=== PATIENT | female | born 1940 | race Caucasian/White ===

== ENCOUNTER 2020-01-10 10:33 | Outpatient (CLI) | payer MEDICARE, SELFPAY ==
--- NOTE | 2020-01-10 10:39 | XR_ITS ---
WS: [id number] Examination: DEXA evaluation. HISTORY: Evaluated in bone density for premature menopause. FINDINGS: The lumbar spine showed a bone mineral density of 0.947, a T score of -1.9 a Z score of -0.8. The hip joints show in bone mineral density of 0.8878 T score -1.0 a Z score of 0.6. Technique 10 year probability of fractures Major osteoporotic 29.8% hips 19.5%. Bone density findings consistent with osteopenia.
== END 2020-01-10 10:34 | disposition home or self-care (01) ==
LOC: RADWPI 10:38
PROVIDERS: Family Provider Family Medicine; PCP Internal Medicine; Visit Provider Internal Medicine
DX: Z78.0 Asymptomatic menopausal state (principal)
CPT/HCPCS: 77080

== ENCOUNTER → 2020-04-08 09:15 | Outpatient (BNVA) | payer MEDICARE, SELFPAY | PROVIDERS: Family Provider Family Medicine; PCP Nurse Practitioner Family; Referring Provider Nurse Practitioner Family; Visit Provider Anesthesiology Pain Medicine | DX: G89.29 Other chronic pain (principal); M51.36 Other intervertebral disc degeneration, lumbar region; M47.816 Spondylosis without myelopathy or radiculopathy, lumbar region; M54.9 Dorsalgia, unspecified; M25.519 Pain in unspecified shoulder; Z90.710 Acquired absence of both cervix and uterus; Z98.890 Other specified postprocedural states | CPT/HCPCS: 99204 ==

== ENCOUNTER → 2020-04-12 14:36 | Outpatient (BNVA) | payer MEDICARE, SELFPAY | PROVIDERS: Family Provider Family Medicine; PCP Nurse Practitioner Family; Visit Provider Anesthesiology Pain Medicine | DX: M47.816 Spondylosis without myelopathy or radiculopathy, lumbar region (principal); M54.9 Dorsalgia, unspecified | CPT/HCPCS: 64493; 64494; 64495; J2001; J3490 ==

== ENCOUNTER → 2020-04-30 10:42 | Outpatient (BNVA) | payer MEDICARE, SELFPAY | PROVIDERS: Family Provider Family Medicine; PCP Nurse Practitioner Family; Visit Provider Anesthesiology Pain Medicine | DX: G89.29 Other chronic pain (principal); M54.9 Dorsalgia, unspecified; M47.816 Spondylosis without myelopathy or radiculopathy, lumbar region; M51.36 Other intervertebral disc degeneration, lumbar region; M25.519 Pain in unspecified shoulder; Z98.890 Other specified postprocedural states; Z90.710 Acquired absence of both cervix and uterus | CPT/HCPCS: 99213 ==

== ENCOUNTER → 2020-05-31 12:31 | Outpatient (BNVA) | payer MEDICARE, SELFPAY | PROVIDERS: Family Provider Family Medicine; PCP Nurse Practitioner Family; Visit Provider Anesthesiology Pain Medicine | DX: M47.816 Spondylosis without myelopathy or radiculopathy, lumbar region (principal); M54.9 Dorsalgia, unspecified | CPT/HCPCS: 64493; 64494; 64495; J3490 ==

== ENCOUNTER → 2020-06-14 10:00 | Outpatient (BNVA) | payer MEDICARE, SELFPAY | PROVIDERS: Family Provider Family Medicine; PCP Nurse Practitioner Family; Visit Provider Anesthesiology Pain Medicine | DX: G89.29 Other chronic pain (principal); M79.18 Myalgia, other site; M47.816 Spondylosis without myelopathy or radiculopathy, lumbar region; M51.36 Other intervertebral disc degeneration, lumbar region; M54.9 Dorsalgia, unspecified; M25.519 Pain in unspecified shoulder; Z98.890 Other specified postprocedural states; Z90.710 Acquired absence of both cervix and uterus; Z79.891 Long term (current) use of opiate analgesic | CPT/HCPCS: 20553; 99214; J1030; J3490 ==

== ENCOUNTER → 2020-07-05 12:54 | Outpatient (BNVA) | payer MEDICARE, SELFPAY | PROVIDERS: Family Provider Family Medicine; PCP Nurse Practitioner Family; Visit Provider Anesthesiology Pain Medicine | DX: M47.816 Spondylosis without myelopathy or radiculopathy, lumbar region (principal); M54.9 Dorsalgia, unspecified | CPT/HCPCS: 64635; 64636; J1030 ==

== ENCOUNTER → 2020-07-29 13:14 | Outpatient (BNVA) | payer MEDICARE, SELFPAY | PROVIDERS: Family Provider Family Medicine; PCP Nurse Practitioner Family; Visit Provider Anesthesiology Pain Medicine | DX: M47.816 Spondylosis without myelopathy or radiculopathy, lumbar region (principal); M54.9 Dorsalgia, unspecified; Z79.891 Long term (current) use of opiate analgesic | CPT/HCPCS: 64635; 64636; J1030 ==

== ENCOUNTER → 2020-08-15 10:11 | Outpatient (BNVA) | payer MEDICARE, SELFPAY | PROVIDERS: Family Provider Family Medicine; PCP Nurse Practitioner Family; Visit Provider Anesthesiology Pain Medicine | DX: G89.29 Other chronic pain (principal); M47.816 Spondylosis without myelopathy or radiculopathy, lumbar region; M51.36 Other intervertebral disc degeneration, lumbar region; M54.9 Dorsalgia, unspecified; M25.519 Pain in unspecified shoulder; Z98.890 Other specified postprocedural states | CPT/HCPCS: 99212 ==

== ENCOUNTER → 2020-11-07 09:20 | Outpatient (BNVA) | payer MEDICARE, SELFPAY | PROVIDERS: Family Provider Family Medicine; PCP Nurse Practitioner Family; Visit Provider Anesthesiology Pain Medicine | DX: G89.29 Other chronic pain (principal); M47.816 Spondylosis without myelopathy or radiculopathy, lumbar region; M51.36 Other intervertebral disc degeneration, lumbar region; M54.9 Dorsalgia, unspecified; M25.519 Pain in unspecified shoulder; G47.00 Insomnia, unspecified; Z90.710 Acquired absence of both cervix and uterus; Z98.890 Other specified postprocedural states | CPT/HCPCS: 99214 ==

== ENCOUNTER → 2021-02-28 10:45 | Outpatient (BNVA) | payer MEDICARE, SELFPAY | PROVIDERS: PCP Nurse Practitioner Family; Visit Provider Surgery | DX: Z01.812 Encounter for preprocedural laboratory examination (principal); Z20.822 Contact with and (suspected) exposure to COVID-19 | CPT/HCPCS: 87635 ==

== ENCOUNTER 2021-03-05 06:26 | Day surgery (SDC) | payer MEDICARE, SELFPAY ==
[2021-03-03 13:51] VITALS: BMI 32.8
--- NOTE | 2021-03-05 07:18 | ANES.PREANE2 ---
Pre-Anesthetic Assessment Pre-Anesthetic Assessment: Height/Weight: Height 1.63 m Weight 86.636 kg Preop Diagnosis: Occult blood in stool Proposed Procedure: Operation Date: 03/05/21 08:00 Proposed Procedures p Colonoscopy 24113 K62.5(Not Applicable) - Ashok Torres MD Familial anesthetic complications: None Was Beta Tristin taken within 24 hours: N/A Was Clonidine taken within 24 hours: N/A Last intake: NPO > 8 hrs Social: Social History: No alcohol and No tobacco Exam: Pre-Anes Outpt Exam: alert, oriented x 3, clear to auscultation bilaterally and regular rate & rhythm Airway: Cervical ROM: WNL MP: 2 Dentition: False CV/HEM: CV/HEM: HTN GI: GI: GERD Metabolic: Metabolic: Hyperlipidemia Anesthetic Plan: ASA status: 2 Anesthesia: MAC Risk of > 500 ml blood loss (7ml/kg in children): No PFSH Anesthesia PFSH: Family History Mother Dementia Father Cerebral hemorrhage Grandmother Cancer Brother Stroke Denies family history of Anesthesia complication Bleeding disorder Social History Smoking and tobacco status: former smoker Alcohol intake: never Lives independently: Yes History of recent travel: No Data Anesthesia Cardiac Studies: No Data to Display
[2021-03-05 07:37] VITALS: BP 170/104; PULSE 108; RESP 16; TEMP 36.2; O2SAT 97
[2021-03-05] MEDS: sodium chloride 0.9% 1,000 ML 30 ML IV (07:47)
--- NOTE | 2021-03-05 08:15 | W.PM.OPSFHP ---
Same Day Surgery H&P Indication for Procedure/HPI DATE OF PROCEDURE: March 05, 2021 CHIEF COMPLAINT/INDICATIONFOR SURGICAL PROCEDURE: Blood in stool PREOP DIAGNOSIS: Occult blood in stool PLANNED PROCEDRUE: Operation Date: 03/05/21 08:00 Proposed Procedures p Colonoscopy 53672 K62.5(Not Applicable) - Ashok Torres MD This is a pleasant 80 years old female patient with well-known history of diverticulosis, last colonoscopy was done few years ago. Was found to have occult blood in stool and she was referred by her primary care provider service with concern and potential discussion of colonoscopy. No evidence of history of colon cancer. Interim history 03/05/2021 Patient comes today for colonoscopy. ROS All systems have been reviewed negative except as per the above or per problem list. Medications/Allergies* Home Medications Medication Instructions Recorded Confirmed Type amlodipine 5 mg tablet 5 mg PO DAILY 04/08/20 03/05/21 History cholecalciferol (vitamin D3) 125 125 mcg PO DAILY 04/08/20 03/05/21 History mcg (5,000 unit) capsule cyanocobalamin (vitamin B-12) 1,000 mcg PO DAILY 04/08/20 03/05/21 History 1,000 mcg capsule cyclobenzaprine 5 mg tablet 5 mg PO TID PRN 04/08/20 03/05/21 History diphenhydramine 25 1 tab PO Q6H PRN 04/08/20 03/05/21 History mg-acetaminophen 500 mg tablet lovastatin 20 mg tablet 20 mg PO DAILY 04/08/20 03/05/21 History ropinirole 1 mg tablet 1 mg PO DAILY 04/08/20 03/05/21 History aloe vera 1 cap PO TID PRN 03/03/21 03/05/21 History lorazepam 1 mg PO BEDTIME PRN 03/03/21 03/05/21 History pantoprazole 40 mg PO DAILY 03/03/21 03/05/21 History phenazopyridine [Azo] 95 mg PO TID PRN 03/03/21 03/03/21 History Allergies/Adverse Reactions Allergy/AdvReac Type Severity Reaction Status Date / Time No Known Allergies Allergy Verified 03/05/21 08:16 Current Medications: Generic Name Dose Route Start Last Admin Trade Name Freq PRN Reason Stop Dose Admin Sodium Chloride 1,000 mls @ 30 mls/hr 03/05/21 06:45 03/05/21 07:47 Sodium Chloride 0.9% IV 30 mls/hr .Q24H SMITH Administration Pertinent History/Comorbid Conditions* Family History (Updated 04/08/20 @ 10:04 by Pamela Jama LPN) Dementia Mother Cerebral hemorrhage Father Cancer Grandmother Stroke Brother Denies family history of Anesthesia complication Bleeding disorder Social History Smoking and tobacco status: former smoker Alcohol intake: never Lives independently: Yes History of recent travel: No Pertinent Exam Findings alert, clear to auscultation bilaterally, regular rate & rhythm and procedure specific exam findings (Abdominal examination nontender nondistended soft, obese) Recommendations Surgery/Procedure today (Colonoscopy with possible biopsy) Other Plans: Plan of care; After thorough history and physical examination and reviewing the chart, plan to perform diagnostic colonoscopy. I discussed with the patient in details the risks,benefits,alternatives and indications.The risk of aspiration, bleeding, soft tissue injury, perforation of the colon and other potential concomitant complications were explained to the patient in details,also the potential need for Laproscoy/Laparotomy to repair any related complications including but not limited to colectomy and or Closotomy.The patient understood this well and did agree to proceed. Rationale was carefully and clearly discussed with the patient.Appropriate informed consent have been reviewed and signed All questions have been answered and all concerns have been addressed to patient's satisfaction. 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
--- NOTE | 2021-03-05 08:43 | FL_ITS ---
WS: [id number] Barium enema, 03/05/2021 Clinical Data: Attempted colonoscopy yet limited to flex sigmoidoscopy Comparison: None. Fluoroscopy time: 5.4 minutes. Findings: The pulmonary film shows a calcification in the right upper quadrant which may be a gallstone. The barium was introduced in a retrograde fashion to fill the entire colon. The cecum was identified and there is reflux into the terminal ileum. There were numerous sigmoid diverticula. No masses or ob struction was present. There is a possible small polyp on the lateral aspect of the distal descending colon seen best on image 15 of 22. The postevacuation film was unremarkable. FL/FL barium enema [id number] Impression: 1. Numerous sigmoid diverticula. 2. Possible small polyp in distal descending colon.
[2021-03-05 08:45] VITALS: BP 126/75; PULSE 88; RESP 12; TEMP 36.3; O2SAT 91
--- NOTE | 2021-03-05 08:48 | ANE.PACU2 ---
Inpatient post-anesthesia follow up: Airway intact: Yes Vital signs: Temperature 97.1 F Pulse Rate 108 Respiratory Rate 16 Blood Pressure 170/104 Pulse Oximetry 97 Oxygen Delivery Me thod Room Air Oxygen Flow Rate Fraction of Inspir ed Oxygen Hydration adequate: Yes Nausea and vomiting: No Pain level: 1 Mental status: Baseline
[2021-03-05 08:53] VITALS: BP 133/80; PULSE 83; RESP 16; O2SAT 94
[2021-03-05 09:30] VITALS: BP 150/86; PULSE 80; RESP 16; TEMP 36.4; O2SAT 94
== END 2021-03-05 09:30 | disposition home or self-care (01) ==
LOC: GILAB 06:28 → OPS 07:02
PROVIDERS: PCP Nurse Practitioner Family; Visit Provider Surgery
PROC: 0DJD8ZZ Inspection of Lower Intestinal Tract, Via Natural or Artificial Opening Endoscopic (ICD-10-PCS; CPT 45378; principal; 2021-03-05 08:00)
DX: R19.5 Other fecal abnormalities (principal); K57.30 Diverticulosis of large intestine without perforation or abscess without bleeding; Z87.891 Personal history of nicotine dependence; I10 Essential (primary) hypertension; K21.9 Gastro-esophageal reflux disease without esophagitis; E78.5 Hyperlipidemia, unspecified
CPT/HCPCS: 45330; 74270; 96360; 96361; J2704; J7030

== ENCOUNTER 2021-03-19 13:42 | Outpatient (CLI) | payer MEDICARE, SELFPAY ==
--- NOTE | 2021-03-19 13:46 | MM_ITS ---
WS: [id number] BILATERAL DIAGNOSTIC DIGITAL MAMMOGRAM WITH CAD HISTORY: HX OF BREAST CA COMPARISON: 02/03/2019 and 01/27/2018 Bilateral CC and MLO views submitted. Computer aided detection analyzed. Breast composition: There are scattered areas of fibroglandular density. No suspicious masses, microc alcifications or architectural distortion. Breast arterial calcifications and coarse calcifications i n each breast. No suspicious mass or calcifications. MM/[place] [id number] IMPRESSION: BI-RADS: 2-Benign FOLLOW UP: 1 Year Follow-up
== END 2021-03-19 13:43 | disposition home or self-care (01) ==
LOC: RADSHAW 13:44
PROVIDERS: PCP Nurse Practitioner Family; Visit Provider Family Medicine
DX: Z85.3 Personal history of malignant neoplasm of breast (principal)
CPT/HCPCS: 77066

== ENCOUNTER → 2021-05-29 10:54 | Outpatient (BNVA) | payer MEDICARE, SELFPAY | PROVIDERS: PCP Nurse Practitioner Family; Visit Provider Surgery | DX: Z20.822 Contact with and (suspected) exposure to COVID-19 (principal); Z11.52 Encounter for screening for COVID-19 | CPT/HCPCS: 87635 ==

== ENCOUNTER → 2021-06-13 11:09 | Outpatient (BNVA) | payer MEDICARE, SELFPAY | PROVIDERS: PCP Family Medicine; Visit Provider Surgery | DX: Z20.822 Contact with and (suspected) exposure to COVID-19 (principal); K57.90 Diverticulosis of intestine, part unspecified, without perforation or abscess without bleeding | CPT/HCPCS: 87635 ==

== ENCOUNTER 2021-06-18 07:33 | Day surgery (SDC) | payer MEDICARE, SELFPAY ==
[2021-06-16 10:24] VITALS: BMI 31.9
[2021-06-18 08:02] VITALS: BMI 31.9
[2021-06-18 08:15] VITALS: BP 130/80; PULSE 94; RESP 18; TEMP 36.1; O2SAT 95
[2021-06-18] MEDS: sodium chloride 0.9% 1,000 ML 30 ML IV (08:15)
--- NOTE | 2021-06-18 09:37 | P.HP_ITS ---
Same Day Surgery H&P Indication for Procedure/HPI DATE OF PROCEDURE: June 18, 2021 CHIEF COMPLAINT/INDICATIONFOR SURGICAL PROCEDURE: I am here for endoscopy PREOP DIAGNOSIS: Diverticulosis and colon polyp PLANNED PROCEDRUE: Operation Date: 06/18/21 09:15 Proposed Procedures p Colonoscopy 89070 K57.90(Not Applicable) - Ashok Torres MD Patient comes today escorted by her daughter for follow-up status post attempted colonoscopy that was limited to flex sigmoidoscopy as there was a narrow segment of the sigmoid colon and thus a barium enema was done as a complementary study and it did show 1. Numerous sigmoid diverticula. 2. Possible small polyp in distal descending colon. The flex sigmoidoscopy did show multiple diverticuli. Patient reports that she does have problem with constipation Interim history 06/18/2021 Patient comes today for repeat colonoscopy using the EGD based on the fact on the findings of the barium enema that showed; 1. Numerous sigmoid diverticula. 2. Possible small polyp in distal descending colon. ROS All systems have been reviewed negative except as per the above or per problem list Medications/Allergies* Home Medications Medication Instructions Recorded Confirmed Type amlodipine 5 mg tablet 5 mg PO DAILY 04/08/20 06/18/21 History cholecalciferol (vitamin D3) 125 125 mcg PO DAILY 04/08/20 06/18/21 History mcg (5,000 unit) capsule cyanocobalamin (vitamin B-12) 1,000 mcg PO DAILY 04/08/20 06/18/21 History 1,000 mcg capsule cyclobenzaprine 5 mg tablet 5 mg PO TID PRN 04/08/20 06/18/21 History diphenhydramine 25 1 tab PO Q6H PRN 04/08/20 06/18/21 History mg-acetaminophen 500 mg tablet lovastatin 20 mg tablet 20 mg PO DAILY 04/08/20 06/18/21 History ropinirole 1 mg tablet 1 mg PO DAILY 04/08/20 06/18/21 History pantoprazole 40 mg PO DAILY 03/03/21 06/18/21 History Allergies/Adverse Reactions Allergy/AdvReac Type Severity Reaction Status Date / Time No Known Allergies Allergy Verified 06/18/21 09:39 Current Medications: Generic Name Dose Route Start Last Admin Trade Name Freq PRN Reason Stop Dose Admin Sodium Chloride 1,000 mls @ 30 mls/hr 06/18/21 08:30 06/18/21 08:15 Sodium Chloride 0.9% IV 30 mls/hr .Q24H SMITH Administration Pertinent History/Comorbid Conditions* Medical History (Updated 03/17/21 @ 09:08 by Ashok Torres MD) Diverticulosis Surgical History (Updated 03/17/21 @ 09:05 by Ashok Torres MD) History of colonoscopy 2004 Family History (Updated 04/08/20 @ 10:04 by Pamela Jama LPN) Dementia Mother Cerebral hemorrhage Father Cancer Grandmother Stroke Brother Denies family history of Anesthesia complication Bleeding disorder Social History Smoking and tobacco status: former smoker Alcohol intake: never Lives independently: Yes History of recent travel: No Pertinent Exam Findings alert, oriented x 3, clear to auscultation bilaterally, regular rate & rhythm and procedure specific exam findings (Abdominal examination nontender nondistended soft) Recommendations Surgery/Procedure today (Colonoscopy with possible biopsy) Coding Level of Care Code Acute Padding Machine Operator for Luba Rodrigues
--- NOTE | 2021-06-18 10:02 | P.ANESUD_ITS ---
Pre-Anesthetic Update Pre-Anesthetic Assessment: Date of Surgery/Procedure: 06/18/21 Preop Orly gnosis: Diverticulosis and colon polyp Proposed Procedure: Operation Date: 06/18/21 09:15 Proposed Procedures p Colonoscopy 03363 K57.90(Not Applicable) - Ashok Torres MD Last Intake: Intake Last Liquid Date 06/17/21 Last Liquid Time 23:00 Last Solid Date 06/16/21 Cardiac Studies: No Data to Display
--- NOTE | 2021-06-18 10:02 | ANES.PAUD2 ---
Pre-Anesthetic Update Pre-Anesthetic Assessment: Date of Surgery/Procedure: 06/18/21 Preop Diagnosis: Diverticulosis and colon polyp Proposed Procedure: Operation Date: 06/18/21 09:15 Proposed Procedures p Colonoscopy 49861 K57.90(Not Applicable) - Ashok Torres MD Last Intake: Intake Last Liquid Date 06/17/21 Last Liquid Time 23:00 Last Solid Date 06/16/21 Cardiac Studies: No Data to Display
[2021-06-18 10:31] VITALS: BP 106/75; PULSE 78; RESP 16; TEMP 36.6; O2SAT 94
[2021-06-18 10:41] VITALS: BP 136/78; PULSE 75; RESP 16; O2SAT 92
--- NOTE | 2021-06-18 15:35 | ANE.PACU2 ---
Inpatient post-anesthesia follow up: Airway intact: Yes Vital signs: Temperature 98 F Pulse Rate 75 Respiratory Rate 16 Blood Pressure 136/78 Pulse Oximetry 92 Oxygen Delivery Me thod Room Air Oxygen Flow Rate Fraction of Inspir ed Oxygen Hydration adequate: Yes Nausea and vomiting: No Pain level: 1 Mental status: Baseline
== END 2021-06-18 10:51 | disposition home or self-care (01) ==
PROVIDERS: PCP Family Medicine; Visit Provider Surgery
PROC: 0DJD8ZZ Inspection of Lower Intestinal Tract, Via Natural or Artificial Opening Endoscopic (ICD-10-PCS; CPT 45330; principal; 2021-06-18 09:15)
DX: K57.30 Diverticulosis of large intestine without perforation or abscess without bleeding (principal); D12.5 Benign neoplasm of sigmoid colon; Z87.891 Personal history of nicotine dependence
CPT/HCPCS: 45338; 88305; 96360; 96361; J7030

== ENCOUNTER → 2022-12-02 10:08 | Outpatient (BNVA) | payer MEDICARE, SELFPAY | PROVIDERS: PCP Family Medicine; Visit Provider Family Medicine | DX: I10 Essential (primary) hypertension (principal); G47.00 Insomnia, unspecified; M25.50 Pain in unspecified joint | CPT/HCPCS: 80053; 80061; 84443; 85025 ==

== ENCOUNTER → 2023-02-17 09:36 | Outpatient (BNVA) | payer MEDICARE, SELFPAY | PROVIDERS: PCP Family Medicine; Visit Provider Family Medicine | DX: M17.12 Unilateral primary osteoarthritis, left knee (principal); M25.562 Pain in left knee; G89.29 Other chronic pain; M25.50 Pain in unspecified joint; G25.81 Restless legs syndrome; K21.9 Gastro-esophageal reflux disease without esophagitis; M54.6 Pain in thoracic spine; R10.9 Unspecified abdominal pain | CPT/HCPCS: 81003 ==

== ENCOUNTER → 2023-04-05 09:31 | Outpatient (BNVA) | payer MEDICARE, SELFPAY | PROVIDERS: PCP Family Medicine; Visit Provider Nurse Practitioner Family | DX: L57.0 Actinic keratosis (principal); Z85.828 Personal history of other malignant neoplasm of skin; D69.2 Other nonthrombocytopenic purpura; L82.1 Other seborrheic keratosis; D22.5 Melanocytic nevi of trunk; L81.4 Other melanin hyperpigmentation; L57.8 Other skin changes due to chronic exposure to nonionizing radiation; Z71.89 Other specified counseling; L71.8 Other rosacea | CPT/HCPCS: 17000; 17003; 99214 ==

== ENCOUNTER → 2023-09-07 15:07 | Outpatient (BNVA) | payer MEDICARE, SELFPAY | PROVIDERS: PCP Family Medicine; Visit Provider Family Medicine | DX: E83.52 Hypercalcemia (principal); I10 Essential (primary) hypertension; F41.9 Anxiety disorder, unspecified; G47.00 Insomnia, unspecified; R30.0 Dysuria; M17.12 Unilateral primary osteoarthritis, left knee; M25.562 Pain in left knee; G89.29 Other chronic pain; M25.50 Pain in unspecified joint; K21.9 Gastro-esophageal reflux disease without esophagitis; G25.81 Restless legs syndrome; Z23 Encounter for immunization | CPT/HCPCS: 80053; 80061; 81000; 82306; 84443; 85025; 86140 ==

== ENCOUNTER → 2023-10-06 09:38 | Outpatient (BNVA) | payer MEDICARE, SELFPAY | PROVIDERS: PCP Family Medicine; Visit Provider Nurse Practitioner Family | DX: D48.5 Neoplasm of uncertain behavior of skin (principal); L57.0 Actinic keratosis; D69.2 Other nonthrombocytopenic purpura; L82.1 Other seborrheic keratosis; D22.5 Melanocytic nevi of trunk; L81.4 Other melanin hyperpigmentation; L57.8 Other skin changes due to chronic exposure to nonionizing radiation; L71.8 Other rosacea; L82.0 Inflamed seborrheic keratosis; I87.2 Venous insufficiency (chronic) (peripheral); Z85.828 Personal history of other malignant neoplasm of skin | CPT/HCPCS: 11102; 17000; 17110; 99214 ==

== ENCOUNTER → 2023-11-12 10:12 | Outpatient (BNVA) | payer MEDICARE, SELFPAY | PROVIDERS: PCP Family Medicine; Visit Provider Nurse Practitioner Family | DX: Z86.007 Personal history of in-situ neoplasm of skin (principal); Z85.828 Personal history of other malignant neoplasm of skin; L82.0 Inflamed seborrheic keratosis; L57.8 Other skin changes due to chronic exposure to nonionizing radiation; D22.4 Melanocytic nevi of scalp and neck | CPT/HCPCS: 17110; 99213 ==

== ENCOUNTER → 2024-01-06 09:36 | Outpatient (BNVA) | payer MEDICARE, SELFPAY | PROVIDERS: PCP Family Medicine; Visit Provider Nurse Practitioner Family | DX: L24.4 Irritant contact dermatitis due to drugs in contact with skin (principal); L82.1 Other seborrheic keratosis; L81.4 Other melanin hyperpigmentation; L57.8 Other skin changes due to chronic exposure to nonionizing radiation; L24.2 Irritant contact dermatitis due to solvents; Z86.007 Personal history of in-situ neoplasm of skin | CPT/HCPCS: 99214 ==

== ENCOUNTER → 2024-02-23 10:45 | Outpatient (BNVA) | payer MEDICARE, SELFPAY | PROVIDERS: PCP Family Medicine; Visit Provider Family Medicine | DX: R79.89 Other specified abnormal findings of blood chemistry (principal); M25.50 Pain in unspecified joint; M79.10 Myalgia, unspecified site; I10 Essential (primary) hypertension; E55.9 Vitamin D deficiency, unspecified; E83.42 Hypomagnesemia | CPT/HCPCS: 80053; 82306; 82550; 82607; 82746; 83735; 84439; 84443; 84550; 85025; 85651; 86038; 86140; 86431 ==

== ENCOUNTER 2024-03-10 15:47 | Inpatient (IN) | payer MEDICARE, SELFPAY ==
[2024-03-10 16:07] VITALS: BP 122/91; PULSE 143; RESP 16; TEMP 37.2; O2SAT 91
--- NOTE | 2024-03-10 16:09 | XRR_ITS ---
PROCEDURE INFORMATION: Exam: XR Chest Exam date and time: 03/10/2024 4:23 PM Age: 83 years old Clinical indication: Cough and dyspnea; Additional info: Dyspnea/cough TECHNIQUE: Imaging protocol: Radiologic exam of the chest. Views: 1 view. COMPARISON: CR XR shoulder RT min 2V* [id number] 06/06/2019 12:11 PM FINDINGS: Lungs: Bilateral apical fibrotic changes. No focal consolidation. Pleural spaces: Unremarkable. No pleural effusion. No pneumothorax. Heart/Mediastinum: Mild cardiomegaly. Bones/joints: Reverse right total shoulder arthroplasty components are in anatomic alignment with no hardware complications. Moderate degenerative disease of bilateral acromioclavicular joints. XR/XR chest 1V portable [id number] IMPRESSION: No acute cardiopulmonary process.
--- NOTE | 2024-03-10 16:10 | ECG_ITS ---
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 Measurements Intervals [place] Rate: 132 P: 0 [place]: 0 QRS: 18 QRSD: 109 T: 120 QT: 229 QTc: 340 Interpretive Statements ATRIAL FIBRILLATION WITH RAPID VENTRICULAR RESPONSE NONSPECIFIC ST & T-WAVE ABNORMALITY No previous ECG available for comparison Electronically Signed On 03-11-2024 12:38:00 CDT by Jerri Wilcox M.D. [email or web address] [email or web address] butler [email or web address]/[id number] f
--- NOTE | 2024-03-10 16:11 | ED_ITS ---
HPI - General Adult 2 General: Chief complaint: General Medical Stated complaint: POLYPS ON RECTUM Time Seen by Provider: 03/10/24 16:00 Source: patient Mode of arrival: EMS History of Present Illness: 83-year-old female presents emergency ro om via EMS with complaints of what she describes as polyps on the rectum. She has not had any bleeding. She has also had a rapid heart rate EMS noted her heart rate in the 150s and 60s. She denies any chest pain at this time but has noticed significant shortness of breath. No history of coronary artery disease Onset (ago): day(s) Severity: mild Pain Consistency: constant Relieving factors: none Exacerbating factors: none Associated symptoms: Reports palpitations and short of breath; Deny chest pain, confusion, cough, diaphoresis, decreased appetite, dyspnea, fevers/chills, headache(s), malaise, nausea, rash, seizures, syncope, vomiting or weakness Treatments prior to arrival: none Review of Systems 2 Const: Denies: fever(s), chills, fatigue, malaise or diaphoresis Card: Reports: palpitations; Denies: chest pain or syncope Resp: Denies: dyspnea GI: Denies: abdominal pain, nausea or vomiting : Denies: dysuria, urinary frequency or urinary urgency Musc: Denies: neck pain or back pain Skin/Breast: Denies: rash Neuro: Denies: headache(s) or confusion PFSH ED 2 PFSH: Medical History Hyperlipidemia GERD (gastroesophageal reflux disease) Colon polyp Diverticulosis Surgical History Hx of shoulder surgery Hx of hysterectomy Hx of breast lump removal History of colonoscopy 2004 Family History Mother Dementia Father Cerebral hemorrhage Grandmother Cancer Brother Stroke Denies family history of Anesthesia complication Bleeding disorder Social History Smoking and tobacco/nicotine status: former use of tobacco/nicotine Second hand smoke exposure: No Alcohol intake: never Substance/Drug Use: never Adopted: No Caregiver/support person: No Lives independently: Yes Housing: Apartment Physical Exam 2 Const: GENERAL APPEARANCE: cooperative and comfortable O RIENTATION/CONSCIOUSNESS: Yes awake, Yes oriented to person, Yes oriented to place and Yes oriented to time HENMT: COMMON NORMALS: normocephalic, atraumatic and hearing grossly normal bilaterally HEAD & SCALP: normocephalic and atraumatic Resp: COMMON NORMALS: normal respiratory effort, No retractions, No use of accessory muscles and clear to auscultation bilaterally AUSCULTATION: clear to auscultation bilaterally Cardio: COMMON NORMALS: No murmurs present (Cardio) RATE: tachycardic R HYTHM: abnormal rhythm irregularly irregular GI: COMMON NORMALS: Soft to palpation and No hepatosplenomegaly present A USCULTATION: Yes normoactive bowel sounds PALPATION: Yes Soft to palpation, No Tenderness to palpation present (GI), No Guarding due to palpation present (GI) and Yes No hepatosplenomegaly present Extremity: COMMON NORMALS: normal to inspection, capillary refill normal, no clubbing, cyanosis or edema, no calf tenderness and no pedal edema Neuro: SENSORIUM/ORIENTATION: Yes oriented to person, Yes oriented to place and Yes oriented to time Skin: COMMON NORMALS: no rashes or lesions noted GENERAL SKIN EXAM: no rashes or lesions noted Course 2 Vital Signs: Vital signs: Vital Signs Temperature 98.6 F 03/11/24 16:00 Pulse Rate 85 03/11/24 16:00 Respiratory Rate 25 H 03/11/24 16:00 Blood Pressure 117/61 03/11/24 16:00 Pulse Oximetry 94 03/11/24 16:00 Oxygen Delivery Me thod Room Air 03/11/24 16:00 MDM - General Adult Medical Decision Making On rectal exam patient did have thrombosed hemorrhoids with her not actively bleeding she is in A-fib with RVR which is new for her started on heparin and Cardizem for rate control. Discussed with hospitalist orders written admit for new onset A-fib with RVR. Once her rate was controlled her breathing discomfort improved significantly Medical Records I reviewed the patient's medical records. Lab Data I reviewed the patient's lab results. 03/11/24 05:17 03/11/24 05:17 Radiology Impressions Chest X-Ray 03/10/24 16:09 IMPRESSION: No acute cardiopulmonary process. Laboratory Results WBC 7.16 10^3/uL (3.29-11.43) 03/10/24 16:00 RBC 4.69 10^6/uL (3.85-5.65) 03/10/24 16:00 Hgb 13.40 g/dL (11.27-16.99) 03/10/24 16:00 Hct 39.0 % (36-47) 03/10/24 16:00 MCV 83.2 fl (85-98) L 03/10/24 16:00 MCH 28.6 pg (27-33) 03/10/24 16:00 MCHC 34.4 g/dL (30-55) 03/10/24 16:00 RDW 13.5 % (12.1-15.1) 03/10/24 16:00 Plt Count 363 10^3/cmm (157-399) 03/10/24 16:00 MPV 9.1 fL (7.4-10.4) 03/10/24 16:00 Neut % (Auto) 72.8 % 03/10/24 16:00 Lymph % (Auto) 20.1 % 03/10/24 16:00 [place] % (Auto) 5.9 % 03/10/24 16:00 Eos % (Auto) 0.4 % 03/10/24 16:00 Baso % (Auto) 0.4 % 03/10/24 16:00 Neut # (Auto) 5.21 10^3/uL (1.8-7.7) 03/10/24 16:00 Lymph # (Auto) 1.4 10^3/uL (0.8-4.8) 03/10/24 16:00 [place] # (Auto) 0.4 10^3/uL (0.2-0.9) 03/10/24 16:00 Eos # (Auto) 0.0 10^3/uL (0.0-0.8) 03/10/24 16:00 Baso # (Auto) 0.0 10^3/uL (0.0-0.1) 03/10/24 16:00 Nucleated RBC % (auto) 0 % 03/10/24 16:00 Nucleated RBCs # 0.0 /100WBC 03/10/24 16:00 Sodium 140 mmol/L (136-145) 03/10/24 16:00 Potassium 3.3 mmol/L (3.5-5.1) L 03/10/24 16:00 Chloride 106 mmol/L (98-107) 03/10/24 16:00 Carbon Dioxide 20 mmol/L (22-29) L 03/10/24 16:00 Anion Gap 17.3 (5-19) 03/10/24 16:00 BUN 17 mg/dL (8-23) 03/10/24 16:00 Creatinine 1.2 mg/dL (0.5-0.9) H 03/10/24 16:00 GFR Calculation Not Reportable 03/10/24 16:00 Glucose 148 mg/dL (65-115) H 03/10/24 16:00 Calculated Osmolality 294 mOsm/kg (285-295) 03/10/24 16:00 Calcium 9.3 mg/dL (8.5-10.5) 03/10/24 16:00 Magnesium 1.7 mg/dL (1.7-2.3) 03/10/24 16:00 Iron 48 ug/dL (37-145) 03/10/24 16:00 TIBC 273 mcg/dl 03/10/24 16:00 % Saturation 17.5 % (20-50) L 03/10/24 16:00 Unsat Iron Binding 225 ug/dL (112-347) 03/10/24 16:00 Total Bilirubin 0.4 mg/dL (0.15-1.2) 03/10/24 16:00 AST 15 U/L (0-32) 03/10/24 16:00 ALT 15 U/L (0-33) 03/10/24 16:00 Alkaline Phosphatase 79 U/L (35-105) 03/10/24 16:00 Troponin T Baseline 23 ng/L (0-10) H 03/10/24 16:00 NT-Pro-B Natriuret Pep 3767 pg/mL (0-450) H 03/10/24 16:00 Total Protein 6.3 g/dL (6.6-8.7) L 03/10/24 16:00 Albumin 3.5 g/dL (3.5-5.2) 03/10/24 16:00 Globulin 2.8 g/dL (1.3-4.6) 03/10/24 16:00 TSH 1.06 uIU/mL (0.27-4.20) 03/10/24 16:00 All radiology interpretation(s) finalized by discharge Discharge Plan Discharge Patient Disposition: Admitted As Inpatient Admit Provider: Alexsander Patel Clinical Impression: Paroxysmal atrial fibrillation with RVR, Thrombosed hemorrhoids Condition: Stable Coding Level of Care Code ED Vehicle Safety Inspector for Luba Rodrigues
[2024-03-10 16:16] LABS: Basophils % 0.4 %; Eosinophils % 0.4 %; Lymphocytes # 1.4 10^3/uL (0.8-4.8); Lymphocytes % 20.1 %; Mean Corpuscular HGB Conc 34.4 g/dL (30-55); Mean Corpuscular Hemoglobin 28.6 pg (27-33); Mean Corpuscular Volume 83.2 fl (85-98); Mean Platelet Volume 9.1 fL (7.4-10.4); Monocytes # 0.4 10^3/uL (0.2-0.9); Monocytes % 5.9 %; Neutrophils # 5.21 10^3/uL (1.8-7.7); Neutrophils % 72.8 %; Nucleated Red Blood Cells % 0 %; Platelet Count 363 10^3/cmm (157-399); Red Blood Count 4.69 10^6/uL (3.85-5.65); Red Cell Distribution Width 13.5 % (12.1-15.1); White Blood Count 7.16 10^3/uL (3.29-11.43)
[2024-03-10] MEDS: dilTIAZem 5 mg/mL SDV 5 mL 10 MG IVP (16:37)
[2024-03-10] MEDS: heparin 5,000 unit/mL INJ 1 mL IV (16:41)
[2024-03-10] MEDS: heparin drip 25,000 UNIT/500 ML PREMIX 23 UNIT IV (16:43)
[2024-03-10] MEDS: dilTIAZem 100 MG in sodium chloride 0.9% (add-van) 100 ML IV (16:44)
[2024-03-10 16:46] VITALS: BP 122/82; PULSE 124; RESP 24; O2SAT 91
[2024-03-10 16:59] LABS: Alanine Aminotransferase 15 U/L (0-33); Albumin Level 3.5 g/dL (3.5-5.2); Alkaline Phosphatase 79 U/L (35-105); Anion Gap 17.3 (5-19); Aspartate Amino Transferase 15 U/L (0-32); Blood Urea Nitrogen 17 mg/dL (8-23); Calcium 9.3 mg/dL (8.5-10.5); Carbon Dioxide 20 mmol/L (22-29); Chloride 106 mmol/L (98-107); Creatinine Clr Calc Pharmacy 35.9739; Globulin 2.8 g/dL (1.3-4.6); Glucose 148 mg/dL (65-115); Osmolality Calculated 294 mOsm/kg (285-295); Potassium 3.3 mmol/L (3.5-5.1); Sodium 140 mmol/L (136-145); Thyroid Stimulating Hormone 1.06 uIU/mL (0.27-4.20); Total Bilirubin 0.4 mg/dL (0.15-1.2); Total Protein 6.3 g/dL (6.6-8.7)
[2024-03-10 17:01] LABS: Troponin(5th) Baseline 23 ng/L (0-10)
[2024-03-10 17:22] VITALS: BP 155/84; PULSE 107; RESP 14; O2SAT 94
[2024-03-10] MEDS: potassium chloride oral liq 20 mEq/15 mL UDC 40 MEQ PO (17:36)
--- NOTE | 2024-03-10 17:39 | PC.NURSE ---
PER DR GASPAR, INCREASE TO 7.5 MG CARDIZEM
[2024-03-10 17:40] LABS: Add Urine Microscopic? YES; Bilirubin Urine 1+ (Negative); Blood Urine 2+ (Negative); Glucose Urine UA Norm (Normal); Ketones Urine Negative (Negative); Leukocyte Esterase Urine 2+ (Negative); Nitrate Urine Positive (Negative); Protein Urine Neg (Negative); Urine Appearance Cloudy (CLEAR); Urine Color Yellow (Yellow); Urobilinogen Urine Norm (Negative); pH Urine 5 (5-7)
[2024-03-10 17:42] LABS: NT Pro B Type Natriuretic Pept 3767 pg/mL (0-450)
[2024-03-10 17:45] LABS: Magnesium 1.7 mg/dL (1.7-2.3)
[2024-03-10 17:52] LABS: Add Urine Culture? Yes; Amorphous Sediment Urine TRACE /hpf; Bacteria Urine 3+ /hpf; Hyaline Casts Urine 0-4 /lpf; Mucus Urine TRACE /hpf; WBC Urine 55-80 /hpf (0-5)
--- NOTE | 2024-03-10 18:19 | PC.NURSE ---
PER DR. ONEIL, PATIENT INCREASED TO 10MG CARDIZEM.
[2024-03-10 18:20] VITALS: BP 155/84; PULSE 107; RESP 14; TEMP 37.2; O2SAT 94
--- NOTE | 2024-03-10 18:44 | ECG_ITS ---
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 Measurements Intervals [place] Rate: 99 P: 0 [place]: 0 QRS: 41 QRSD: 87 T: 21 QT: 351 QTc: 451 Interpretive Statements ATRIAL FIBRILLATION LOW QRS VOLTAGE IN PRECORDIAL LEADS [QRS DEFLECTION < 1.0 mV IN CHEST LEADS] NONSPECIFIC T-WAVE ABNORMALITY ABNORMAL RHYTHM ECG Compared to ECG 03/10/2024 16:03:59 Low QRS voltage now present T-wave abnormality still present Electronically Signed On 03-13-2024 12:57:56 CDT by Daniel Luna M.D. [id number]
[2024-03-10 18:56] LABS: Troponin 5 2HR 19.12 ng/L (0-10)
[2024-03-10 18:58] LABS: Troponin 5 2HR Delta -3.88 ABS# (0-10)
--- NOTE | 2024-03-10 20:09 | P.HP_ITS ---
Providers/Chief Complaint 2 Admitting Physician: Alexsander Patel Primary Care Provider: Emanuel Serrano DO Chief Complaint: POLYPS ON RECTUM History of Present Illness Very pleasant 83-year-old lady with history of hypertension, presented due to rectal discomfort/complaint, found to have hemorrhoids in the ER, however, additionally has noticed having some dyspnea with exertion, getting slightly lightheaded when shifting positions/lying down in bed, was not sure why this was happening. In ER she is found to be in new onset atrial fibrillation with RVR, heart rates 150s-160s. Review of Systems 2 Const: Denies: fever(s) (She may have had a light fever about a week back.), chills, body aches or malaise ENMT: Denies: throat pain, oral sores or ear or mastoid pain Card: Denies: chest pain, edema, pre-syncope or dyspnea on exertion Resp: Denies: dyspnea, productive cough, change in phlegm color or hemoptysis GI: Denies: abdominal pain, nausea, vomiting, diarrhea, constipation, hematochezia or melena : Denies: flank pain, urinary frequency or hematuria Musc: Denies: back pain, joint swelling or joint redness Skin/Breast: Denies: rash or new lesions Neuro: Denies: headache(s), numbness in extremities or weakness in extremities Medications/Allergies Home Medications Medication Instructions Recorded Confirmed Last Taken Type cholecalciferol (vitamin D3) 125 125 mcg PO DAILY 04/08/20 03/10/24 03/10/24 History mcg (5,000 unit) capsule pantoprazole 40 mg tablet,delayed 40 mg PO DAILY #90 tabs 11/26/23 03/10/24 03/10/24 Rx release cyclobenzaprine 5 mg tablet 5 mg PO TID PRN Spasms #60 tabs 01/04/24 03/10/24 Unknown Rx lorazepam 0.5 mg tablet 0.5 mg PO DAILY PRN anxiety, 01/04/24 03/10/24 Unknown Rx insomnia #30 tabs ropinirole 1 mg tablet 1 mg PO DAILY #30 tabs 01/04/24 03/10/24 03/10/24 Rx prednisone 20 mg tablet See Rx Instructions .Route 02/23/24 03/10/24 Unknown Rx .COMPLEX #16 tabs amlodipine 5 mg tablet 5 mg PO DAILY 03/10/24 03/10/24 03/10/24 History ibuprofen 200 mg tablet 600 mg PO Q6H PRN Pain 03/10/24 03/10/24 03/10/24 History magnesium 200 mg tablet 200 mg PO DAILY 03/10/24 03/10/24 Unknown History vitamin B12 2,500 mcg-folic acid 1 tab PO DAILY 03/10/24 03/10/24 03/10/24 History 400 mcg disintegrating tablet Allergies Allergy/AdvReac Type Severity Reaction Status Date / Time No Known Allergies Allergy Verified 02/23/24 10:06 PFSH Acute 2 PFSH: Medical History Hyperlipidemia GERD (gastroesophageal reflux disease) Colon polyp Diverticulosis Surgical History Hx of shoulder surgery Hx of hysterectomy Hx of breast lump removal History of colonoscopy 2004 Family History Mother Dementia Father Cerebral hemorrhage Grandmother Cancer Brother Stroke Denies family history of Anesthesia complication Bleeding disorder Social History Smoking and tobacco/nicotine status: former use of tobacco/nicotine Second hand smoke exposure: No Alcohol intake: never Substance/Drug Use: never Adopted: No Caregiver/support person: No Lives independently: Yes Housing: Apartment Vitals/I&O/Wt Last Vital Signs Temp 98.9 F 03/10/24 18:20 Pulse 107 H 03/10/24 18:20 Resp 14 03/10/24 18:20 BP 155/84 03/10/24 18:20 Pulse Ox 94 03/10/24 18:20 O2 Del Method Room Air 03/10/24 17:22 03/10/24 03/10/24 03/10/24 06:59 14:59 22:59 Intake Total 5.208 / 5.208 Balance 5.208 / 5.208 Weight last 48 hrs Weight 81.193 kg Physical Exam 2 Const: COMMON NORMALS: patient oriented x3 and alert GENERAL APPEARANCE: c ooperative ORIENTATION/CONSCIOUSNESS: Yes awake HENMT: COMMON NORMALS: oropharynx normal Neck/C-Spine: COMMON NORMALS: no JVD Resp: COMMON NORMALS: normal respiratory effort and clear to auscultation bilaterally AUSCULTATION: clear to auscultation bilaterally Cardio: COMMON NORMALS: no JVD, regular rhythm, S1 normal heart sound present, S2 normal heart sound present and No murmurs present (Cardio) RHYTHM: a bnormal rhythm irregularly irregular HEART SOUNDS: S1 normal heart sound present and S2 normal heart sound present GI: COMMON NORMALS: Normal to inspection, nondistended, normoactive bowel sounds present, Soft to palpation and non-tender PALPATION: Yes Soft to palpation Extremity: COMMON NORMALS: no joint enlargement and no pedal edema Neuro: COMMON NORMALS: patient oriented x3 and moves all extremities S ENSORIUM/ORIENTATION: Yes alert Skin: COMMON NORMALS: no rashes or lesions noted GENERAL SKIN EXAM: no rashes or lesions noted Data 03/10/24 16:00 03/10/24 16:00 A&P Assessment and plan (1) Paroxysmal atrial fibrillation with RVR: Reviewed vitals, CBC, CMP, magnesium, TSH, UA, ER note, discussed with ER provider. Severe symptomatic new onset A-fib with RVR. Did not respond to Cardizem push. Continues on Cardizem drip. Risk of hypotension, bradycardia, monitor on telemetry. Heart rate gradually improving. Will request assessment by TTE. Has received potassium replacement, magnesium 1.7 will give magnesium. Recheck potassium and magnesium. TSH is okay. EKG on my interpretation with A- fib, no signs of acute IL. Pending official read. Treat UTI. (2) Thrombosed hemorrhoids: Once atrial fibrillation under control, consider Plan LAYNE: Noted to have mild LAYNE, creatinine at 1.2. On review of home medications she takes ibuprofen, will need to discuss with her, discontinue at discharge. Possible UTI: Urinalysis 55-80 WBC, 5-10 squamous cells. 2+ leukocyte esterase, positive nitrate. Will give ceftriaxone, urine culture has been requested. Follow-up. Hypertension: Monitor blood pressure. Currently on Cardizem drip. Previously on amlodipine. Hypokalemia: Replace. Magnesium reviewed, noted 1.7. Continue replacement. Recheck level. Attestations 2 Medical Necessity Statement*: Admission of over 2 midnights anticipated for assessment of management of new onset A-fib with RVR requiring Cardizem drip, thrombosed hemorrhoids, UTI. Diagnoses Paroxysmal atrial fibrillation with RVR I48.0 Thrombosed hemorrhoids K64.5
[2024-03-10 20:46] VITALS: BP 133/64; PULSE 82; RESP 21; TEMP 37.1; O2SAT 93
[2024-03-10] MEDS: hyDROXYzine 25 mg Capsule PO (20:54)
[2024-03-10] MEDS: phenyleph-mineral oil-petrolat Oint 28 gm 1 APPLIC TOPICAL (20:55)
[2024-03-10] MEDS: cefTRIAXone 1,000 MG in sodium chloride 0.9% (plus) 50 ML 100 MG IV (21:15)
[2024-03-10 21:34] LABS: Magnesium 1.9 mg/dL (1.7-2.3)
[2024-03-10 21:37] LABS: Troponin 5 6HR 18.16 ng/L (0-10)
[2024-03-10] MEDS: magnesium sulfate premix 2 GM/50 ML PIGGYBACK IV (21:39)
[2024-03-10 21:40] LABS: Troponin 5 6HR Delta -4.84 ng/L (0-12)
[2024-03-10 22:00] VITALS: PULSE 91
--- NOTE | 2024-03-10 22:11 | ECG_ITS ---
[facility] Test Date: 2024-03-10 Pat Name: Carol Merritt Department: Room: 108 Gender: Female Manager Contract: : 1940 Requested By: Wilton Bustillos Order Number: [id number] Reading MD: Daniel Luna M.D. Measurements Intervals [place] Rate: 90 P: 0 ME: 0 QRS: 31 QRSD: 106 T: 25 QT: 332 QTc: 408 Interpretive Statements ATRIAL FIBRILLATION LOW QRS VOLTAGE IN PRECORDIAL LEADS [QRS DEFLECTION < 1.0 mV IN CHEST LEADS] NONSPECIFIC ST & T-WAVE ABNORMALITY Compared to ECG 03/10/2024 18:44:17 No significant changes Electronically Signed On 03-13-2024 12:56:34 CDT by Daniel Luna M.D. [id number]
[2024-03-10] MEDS: LORazepam 0.5 mg Tablet PO (22:44)
[2024-03-10] MEDS: dilTIAZem 30 mg Tablet PO (22:44)
[2024-03-11] VITALS (13 sets, daily range): BP systolic 117–155; BP diastolic 61–99; PULSE 75–118; RESP 16–28; TEMP 36.6–37.1; O2SAT 90–96
[2024-03-11 00:37] LABS: Iron 48 ug/dL (37-145); Percent Saturation 17.5 % (20-50); Total Iron Binding Capacity 273 mcg/dl; Unsaturated Iron Binding 225 ug/dL (112-347)
[2024-03-11] MEDS: dilTIAZem 100 MG in sodium chloride 0.9% (add-van) 100 ML IV (01:37)
[2024-03-11 06:19] LABS: Basophils % 0.7 %; Eosinophils % 0.7 %; Hematocrit 36.7 % (36-47); Lymphocytes # 1.3 10^3/uL (0.8-4.8); Lymphocytes % 22.6 %; Mean Corpuscular HGB Conc 32.7 g/dL (30-55); Mean Corpuscular Hemoglobin 27.8 pg (27-33); Mean Corpuscular Volume 85.2 fl (85-98); Mean Platelet Volume 9.5 fL (7.4-10.4); Monocytes # 0.5 10^3/uL (0.2-0.9); Monocytes % 7.8 %; Neutrophils # 3.92 10^3/uL (1.8-7.7); Neutrophils % 67.7 %; Nucleated Red Blood Cells % 0 %; Platelet Count 340 10^3/cmm (157-399); Red Blood Count 4.31 10^6/uL (3.85-5.65); Red Cell Distribution Width 13.5 % (12.1-15.1); White Blood Count 5.79 10^3/uL (3.29-11.43)
[2024-03-11 06:24] LABS: Partial Thromboplastin Time 53.3 SECONDS (23.9-36.7)
[2024-03-11 06:30] LABS: Estmated Average Glucose 105; Hemoglobin A1C 5.3 % (4.0-6.0)
[2024-03-11 06:34] LABS: Chol HDL Ratio 6.07 mg/dL (0.0-4.40); Cholesterol 182 mg/dL (0-200); HDL Cholesterol 30 mg/dL (60-100); LDL Cholesterol Calculated 123 mg/dL (50-129); Magnesium 2.2 mg/dL (1.7-2.3); Triglycerides 144 mg/dL (0-150); VLDL Cholestrol Calculation 29 mg/dL (0-30)
[2024-03-11 06:35] LABS: Alanine Aminotransferase 12 U/L (0-33); Albumin Level 3.3 g/dL (3.5-5.2); Alkaline Phosphatase 74 U/L (35-105); Aspartate Amino Transferase 13 U/L (0-32); Blood Urea Nitrogen 13 mg/dL (8-23); Calcium 8.1 mg/dL (8.5-10.5); Carbon Dioxide 23 mmol/L (22-29); Chloride 110 mmol/L (98-107); Creatinine Clr Calc Pharmacy 49.1646; Globulin 2.5 g/dL (1.3-4.6); Glucose 122 mg/dL (65-115); Osmolality Calculated 297 mOsm/kg (285-295); Sodium 143 mmol/L (136-145); Total Bilirubin 0.3 mg/dL (0.15-1.2); Total Protein 5.8 g/dL (6.6-8.7)
[2024-03-11] MEDS: heparin 5,000 unit/mL INJ 1 mL IV (06:41)
[2024-03-11 06:46] LABS: Folate Level 10.9 ng/mL (4.8-37.3)
[2024-03-11] MEDS: ropinirole 1 mg Tablet PO (08:30)
[2024-03-11] MEDS: phenyleph-mineral oil-petrolat Oint 28 gm 1 APPLIC TOPICAL ×3 (08:30→19:59)
[2024-03-11] MEDS: dilTIAZem 30 mg Tablet PO ×2 (08:30→11:16)
[2024-03-11] MEDS: pantoprazole DR 40 mg Tablet PO (08:30)
--- NOTE | 2024-03-11 11:08 | PC.NURSE ---
Provider ordered cardizem 30mg right now once and also give the 1300.
[2024-03-11 13:15] LABS: Partial Thromboplastin Time 74.3 SECONDS (23.9-36.7)
--- NOTE | 2024-03-11 13:27 | PC.NURSE ---
Provider notified that patient had a 9 beat run of Vtack after walking the hallway. Provider looked at stip and ordered Amio 150mg loading dose and then to start Amio drip. Hold 1300 dose of cardizem.
[2024-03-11] MEDS: amiodarone 150 MG/100 ML PREMIX 400 MG IV (13:40)
--- NOTE | 2024-03-11 13:45 | P.PN_ITS ---
Subjective 2 Subjective: Hospital course, labs appreciated. Patient lying comfortably in bed. Continue on Cardizem of 5. Being weaned down. Heart rate stable in the low 80s to high 90s. Patient's oral dose of Cardizem was increased and drip was discontinued. Patient had episode of tachycardia going up to 140 on minimal ambulation. Later in the day patient also had 1 episode of nonsustained V. tach. Vitals/I&O/Wt Last Vital Signs Temp 98.6 F 03/11/24 07:32 Pulse 112 H 03/11/24 13:10 Resp 21 H 03/11/24 13:10 BP 155/99 03/11/24 13:10 Pulse Ox 95 03/11/24 13:10 O2 Del Method Room Air 03/11/24 13:10 03/10/24 03/11/24 03/11/24 22:59 06:59 14:59 Intake Total 457.091 / 457.091 289.183 / 746.274 546.083 / 546.083 Output Total 100 / 100 Balance 357.091 / 357.091 289.183 / 646.274 546.083 / 546.083 Weight last 48 hrs Weight 85.275 kg Weight 85.502 kg Weight 81.193 kg Physical Exam 2 Const: COMMON NORMALS: patient oriented x3 and alert GENERAL APPEARANCE: c ooperative ORIENTATION/CONSCIOUSNESS: Yes awake HENMT: COMMON NORMALS: oropharynx normal Neck/C-Spine: COMMON NORMALS: no JVD Resp: COMMON NORMALS: normal respiratory effort and clear to auscultation bilaterally AUSCULTATION: clear to auscultation bilaterally Cardio: COMMON NORMALS: no JVD, S1 normal heart sound present, S2 normal heart sound present and No murmurs present (Cardio) RHYTHM: abnormal rhythm irregularly irregular HEART SOUNDS: S1 normal heart sound present and S2 normal heart sound present GI: COMMON NORMALS: Normal to inspection, nondistended, normoactive bowel sounds present, Soft to palpation and non-tender PALPATION: Yes Soft to palpation Extremity: COMMON NORMALS: no joint enlargement and no pedal edema Neuro: COMMON NORMALS: patient oriented x3 and moves all extremities S ENSORIUM/ORIENTATION: Yes alert Skin: COMMON NORMALS: no rashes or lesions noted GENERAL SKIN EXAM: no rashes or lesions noted Data 03/11/24 05:17 03/11/24 05:17 Micro: Microbiology 03/10/24 17:20 Urine Culture - Preliminary Urine,Clean Catch Gram Negative Rods A&P Assessment and plan (1) Paroxysmal atrial fibrillation with RVR: Remains in tachycardia minimal ambulation. TSH normal. 1 episode of nonsustained V. tach. Echocardiogram done results pending. Switch from Cardizem drip to amiodarone drip with 150 mg IV of amiodarone bolus. For now we will reassess later in the day and discuss about continuing Cardizem once amiodarone drip has been started. Kelvin Vascor: 4 for now. Echocardiogram results pending. Patient will benefit with anticoagulation. She is agreeable. Continue with heparin drip for now. Will plan to transition over to Eliquis 5 mg twice daily at discharge. (2) Thrombosed hemorrhoids: Once atrial fibrillation under control, consider outpatient follow-up with surgical team for hemorrhoidectomy. Plan LAYNE: Resolved. Monitor electrolytes and BMP daily. Medical reconciliation done for nephrotoxic drugs. Possible UTI: Denies dysuria. Started on antibiotics. For now we will continue. Follow-up urine culture. Hypertension: Goal blood pressure less than 140/90 mmHg. Takes amlodipine 5 mg at home. Blood pressure is elevated. Switching over to amiodarone for now. Will continue to monitor and restart on amlodipine gradually today. Keep potassium around 4, magnesium around 2. Full code Heparin drip will be sufficient for DVT prophylaxis Cardiac diet Protonix for PUD prophylaxis Attestations 2 Medical Necessity Statement*: Requires continued hospitalization for management of paroxysmal A-fib with RVR in a patient who was originally admitted for thrombosed external hemorrhoids Diagnoses Paroxysmal atrial fibrillation with RVR I48.0 Thrombosed hemorrhoids K64.5
--- NOTE | 2024-03-11 15:22 | PC.NURSE ---
Provider ordered to hold cardizem completely for now.
--- NOTE | 2024-03-11 17:47 | PC.NURSE ---
Provider is notified that patient would like something for chronic back pain. Order for tramadol 50mg PO Q6hr. PRN.
[2024-03-11] MEDS: TRAMadol 50 mg Tablet PO (18:00)
[2024-03-11] MEDS: heparin drip 25,000 UNIT/500 ML PREMIX 20 UNIT IV (18:08)
[2024-03-11] MEDS: cefTRIAXone 1,000 MG in sodium chloride 0.9% (plus) 50 ML 100 MG IV (19:56)
--- NOTE | 2024-03-11 20:27 | USCV_ITS ---
René Carol Age: 83 Gender: F : 1940 Exam Date: 03/11/2024 06:42 Ordering Phys: Alexsander Patel MD Technologist: Vipul Jackson Exam Location: [facility] Indication: new afib BP: 137 / 72 HR: 103 Rhythm: Sinus Technical Quality: Adequate MEASUREMENTS (Male / Female) Normal Values 2D ECHO LV Diastolic Diameter PLAX 4.6 cm 4.2 - 5.9 / 3.9 - 5.3 cm IVS Diastolic Thickness 1.2 cm 0.6 - 1.0 / 0.6 - 0.9 cm IVS Systolic Thickness 1.5 cm LVPW Diastolic Thickness 1.4 cm 0.6 - 1.0 / 0.6 - 0.9 cm LVPW Systolic Thickness 2.6 cm LVOT Diameter 2.0 cm LV Ejection Fraction 2D Teich 56.2 % LV Ejection Fraction MOD 2C 50.3 % LV Ejection Fraction 2C AL 52.4 % LA Diameter 3.9 cm RA Systolic Volume 4C AL 21.1 ml RA Systolic Volume 4C MOD 20.7 ml LA Sys Volume AL 55.4 cm cubed LA Sys Volume Index AL 27.8 cm cubed/m squared Aorta at Sinotubular Diameter 2.4 cm IVC Diameter 2.3 cm M-MODE LA Ao Ratio MM 1.4 MV E Point Septal Separation 1.3 cm AV Cusp Separation MM 1.7 cm DOPPLER AV Peak Velocity 133.7 cm/s LVOT Peak Velocity 74.0 cm/s AV Area Cont Eq vti 2.0 cm squared AV Area Cont Eq pk 1.8 cm squared MV Peak Velocity 234.7 cm/s MV Area PHT 8.9 cm squared Mitral E to A Ratio 6.1 TV Peak Velocity 255.0 cm/s TR Peak Velocity 274.0 cm/s TR Peak Gradient 30.0 mmHg TR Mean Velocity 211.0 cm/s TR Mean Gradient 19.6 mmHg TR Velocity Time Integral 72.1 cm PV Peak Velocity 89.0 cm/s FINDINGS Left Ventricle Normal left ventricular size, systolic function with no regional wall motion abnormalities. Mild concentric left ventricle hypertrophy. . Left ventricular ejection fraction is estimated at 60%. Right Ventricle Normal right ventricular size and systolic function. Right Atrium Normal right atrial size. Left Atrium Normal left atrial size. Mitral Valve Structurally normal mitral valve. Trace mitral valve regurgitation. Aortic Valve Structurally normal trileaflet aortic valve. No aortic valve regurgitation. Tricuspid Valve Structurally normal tricuspid valve. Trace tricuspid valve regurgitation. Pulmonic Valve Pulmonic valve not well visualized. Trace pulmonary valve regurgitation. Pericardium Trace pericardial effusion circumferential Aorta Normal size aortic root and proximal ascending aorta. IVC Normal IVC dimension with >50% respiratory change of the inferior vena cava. CONCLUSIONS Mild concentric LVH. Normal LV systolic function, estimated LVEF 60%. No significant valvular abnormality noted Mildly elevated pulmonary pressure, 35 mmHg Trace pericardial effusion. Jerri Wilcox MD (Electronically Signed) Final Date: 12 Mar 2024 14:13 S
[2024-03-11 20:35] LABS: Partial Thromboplastin Time 61.8 SECONDS (23.9-36.7)
[2024-03-11] MEDS: hyDROXYzine 25 mg Capsule PO (20:35)
[2024-03-11] MEDS: LORazepam 0.5 mg Tablet PO (20:35)
[2024-03-12] VITALS (11 sets, daily range): BP systolic 104–153; BP diastolic 51–94; PULSE 78–117; RESP 17–32; TEMP 36.4–36.9; O2SAT 91–97
[2024-03-12 02:38] LABS: Partial Thromboplastin Time 72.7 SECONDS (23.9-36.7)
[2024-03-12 03:26] LABS: Basophils % 0.6 %; Eosinophils % 0.7 %; Hematocrit 36.2 % (36-47); Lymphocytes # 1.8 10^3/uL (0.8-4.8); Lymphocytes % 33.3 %; Mean Corpuscular HGB Conc 32.9 g/dL (30-55); Mean Corpuscular Hemoglobin 28.6 pg (27-33); Mean Platelet Volume 9.1 fL (7.4-10.4); Monocytes # 0.4 10^3/uL (0.2-0.9); Monocytes % 6.8 %; Neutrophils # 3.14 10^3/uL (1.8-7.7); Neutrophils % 57.9 %; Nucleated Red Blood Cells % 0 %; Platelet Count 294 10^3/cmm (157-399); Red Blood Count 4.16 10^6/uL (3.85-5.65); Red Cell Distribution Width 13.9 % (12.1-15.1); White Blood Count 5.43 10^3/uL (3.29-11.43)
[2024-03-12 03:46] LABS: Magnesium 1.9 mg/dL (1.7-2.3)
[2024-03-12 03:49] LABS: Alanine Aminotransferase 11 U/L (0-33); Albumin Level 3.2 g/dL (3.5-5.2); Alkaline Phosphatase 70 U/L (35-105); Anion Gap 14.6 (5-19); Aspartate Amino Transferase 10 U/L (0-32); Blood Urea Nitrogen 11 mg/dL (8-23); Calcium 8.6 mg/dL (8.5-10.5); Carbon Dioxide 22 mmol/L (22-29); Chloride 108 mmol/L (98-107); Creatinine Clr Calc Pharmacy 44.2482; Globulin 3.1 g/dL (1.3-4.6); Glucose 126 mg/dL (65-115); Osmolality Calculated 293 mOsm/kg (285-295); Potassium 3.6 mmol/L (3.5-5.1); Sodium 141 mmol/L (136-145); Total Bilirubin 0.2 mg/dL (0.15-1.2); Total Protein 6.3 g/dL (6.6-8.7)
[2024-03-12] MEDS: ropinirole 1 mg Tablet PO (08:30)
[2024-03-12] MEDS: pantoprazole DR 40 mg Tablet PO (08:30)
[2024-03-12] MEDS: phenyleph-mineral oil-petrolat Oint 28 gm 1 APPLIC TOPICAL ×3 (08:33→17:28)
--- NOTE | 2024-03-12 08:47 | PC.NURSE ---
Provider is notified that patient is requesting a stool softener. Order for milk of mag is given and also for cardizem 10mg IVP due to her heart rate.
[2024-03-12 08:59] LABS: Partial Thromboplastin Time 64.5 SECONDS (23.9-36.7)
[2024-03-12] MEDS: dilTIAZem 5 mg/mL SDV 5 mL 10 MG IVP (09:11)
[2024-03-12] MEDS: magnesium hydroxide 30 mL UDC PO (09:12)
[2024-03-12] MEDS: dilTIAZem 30 mg Tablet PO (10:27)
[2024-03-12] MEDS: amiodarone 200 mg Tablet PO ×2 (10:27→17:05)
[2024-03-12] MEDS: apixaban 5 mg Tablet PO ×2 (12:16→20:15)
--- NOTE | 2024-03-12 15:42 | P.PN_ITS ---
Subjective 2 Subjective: No acute events overnight. Patient has remained on IV amiodarone overnight. Currently on 0.5. Heart rate mostly well-controlled. Does have episode of tachycardia on minimal ambulation. She denies any nausea, ting, headache. States he is doing okay. Denies any difficulty in breathing. Has remained hemodynamically stable and afebrile on room air otherwise. Vitals/I&O/Wt Last Vital Signs Temp 98.1 F 03/12/24 12:50 Pulse 117 H 03/12/24 12:50 Resp 17 03/12/24 12:50 BP 132/89 03/12/24 12:50 Pulse Ox 95 03/12/24 12:50 O2 Del Method Room Air 03/12/24 07:55 03/12/24 03/12/24 03/12/24 06:59 14:59 22:59 Intake Total 250 / 0985.970 2006.523 / 1081.523 Output Total 400 / 400 Balance -150 / 6704.552 8374.523 / 1081.523 Weight last 48 hrs Weight 86.183 kg Weight 85.275 kg Weight 85.502 kg Weight 81.193 kg Physical Exam 2 Const: COMMON NORMALS: patient oriented x3 and alert GENERAL APPEARANCE: c ooperative ORIENTATION/CONSCIOUSNESS: Yes awake HENMT: COMMON NORMALS: oropharynx normal Neck/C-Spine: COMMON NORMALS: no JVD Resp: COMMON NORMALS: normal respiratory effort and clear to auscultation bilaterally AUSCULTATION: clear to auscultation bilaterally Cardio: COMMON NORMALS: no JVD, S1 normal heart sound present, S2 normal heart sound present and No murmurs present (Cardio) RHYTHM: abnormal rhythm irregularly irregular HEART SOUNDS: S1 normal heart sound present and S2 normal heart sound present GI: COMMON NORMALS: Normal to inspection, nondistended, normoactive bowel sounds present, Soft to palpation and non-tender PALPATION: Yes Soft to palpation Extremity: COMMON NORMALS: no joint enlargement and no pedal edema Neuro: COMMON NORMALS: patient oriented x3 and moves all extremities S ENSORIUM/ORIENTATION: Yes alert Skin: COMMON NORMALS: no rashes or lesions noted GENERAL SKIN EXAM: no rashes or lesions noted Data 03/12/24 03:10 03/12/24 03:10 Micro: Microbiology 03/10/24 17:20 Urine Culture - Final Urine,Clean Catch Escherichia coli A&P Assessment and plan (1) Paroxysmal atrial fibrillation with RVR: Remains in tachycardia minimal ambulation. TSH normal. 1 episode of nonsustained V. tach. Echocardiogram done shows EF of 60% with mild PASP of 35 mmHg. Continue with amiodarone drip as per protocol. Switch to 200 mg twice daily once amiodarone drip is done. Start on Cardizem 30 mg every 6 hourly. Will uptitrate as per heart rate and blood pressures. If heart rate not getting controlled we will plan to consult cardiology. Kelvin Vascor: 4 for now. Stop heparin drip. Switch to Eliquis 5 mg twice daily. (2) Thrombosed hemorrhoids: Once atrial fibrillation under control, consider outpatient follow-up with surgical team for hemorrhoidectomy. Plan LAYNE: Resolved. Monitor electrolytes and BMP daily. Medical reconciliation done for nephrotoxic drugs. Possible UTI: Denies dysuria. Started on antibiotics. For now we will continue. Follow-up urine culture. Hypertension: Goal blood pressure less than 140/90 mmHg. Takes amlodipine 5 mg at home. Blood pressure is elevated. Switching over to amiodarone for now. Will continue to monitor and restart on amlodipine gradually today. Keep potassium around 4, magnesium around 2. Full code Eliquis will be sufficient for DVT prophylaxis Cardiac diet Protonix for PUD prophylaxis Attestations 2 Medical Necessity Statement*: Requires further hospitalization for management of A-fib with RVR Diagnoses Paroxysmal atrial fibrillation with RVR I48.0 Thrombosed hemorrhoids K64.5
[2024-03-12 16:42] LABS: Partial Thromboplastin Time 34.4 SECONDS (23.9-36.7)
--- NOTE | 2024-03-12 17:00 | PC.NURSE ---
Amiodarone drip stopped at 24 hours per provider.
[2024-03-12] MEDS: dilTIAZem 60 mg Tablet PO ×2 (17:05→21:26)
[2024-03-12] MEDS: cefTRIAXone 1,000 MG in sodium chloride 0.9% (plus) 50 ML 100 MG IV (20:09)
[2024-03-12] MEDS: LORazepam 0.5 mg Tablet PO (20:15)
[2024-03-13] MEDS: dilTIAZem 60 mg Tablet PO ×2 (03:35→09:59)
[2024-03-13 04:00] VITALS: BP 150/75; PULSE 69; RESP 26; TEMP 36.5; O2SAT 96
[2024-03-13 04:38] LABS: Basophils % 0.6 %; Eosinophils # 0.1 10^3/uL (0.0-0.8); Hematocrit 36.5 % (36-47); Lymphocytes # 1.3 10^3/uL (0.8-4.8); Lymphocytes % 21.4 %; Mean Corpuscular HGB Conc 31.8 g/dL (30-55); Mean Corpuscular Hemoglobin 28.4 pg (27-33); Mean Corpuscular Volume 89.2 fl (85-98); Monocytes # 0.4 10^3/uL (0.2-0.9); Monocytes % 6.6 %; Neutrophils # 4.33 10^3/uL (1.8-7.7); Neutrophils % 69.6 %; Nucleated Red Blood Cells % 0 %; Platelet Count 339 10^3/cmm (157-399); Red Blood Count 4.09 10^6/uL (3.85-5.65); Red Cell Distribution Width 13.9 % (12.1-15.1); White Blood Count 6.22 10^3/uL (3.29-11.43)
[2024-03-13 05:01] LABS: Magnesium 2.1 mg/dL (1.7-2.3)
[2024-03-13 05:02] LABS: Alanine Aminotransferase 10 U/L (0-33); Albumin Level 3.3 g/dL (3.5-5.2); Alkaline Phosphatase 70 U/L (35-105); Anion Gap 15.4 (5-19); Aspartate Amino Transferase 12 U/L (0-32); Blood Urea Nitrogen 10 mg/dL (8-23); Calcium 8.3 mg/dL (8.5-10.5); Carbon Dioxide 23 mmol/L (22-29); Chloride 110 mmol/L (98-107); Creatinine Clr Calc Pharmacy 40.4439; Globulin 2.5 g/dL (1.3-4.6); Glucose 120 mg/dL (65-115); Osmolality Calculated 298 mOsm/kg (285-295); Potassium 4.4 mmol/L (3.5-5.1); Sodium 144 mmol/L (136-145); Total Bilirubin 0.2 mg/dL (0.15-1.2); Total Protein 5.8 g/dL (6.6-8.7)
[2024-03-13 05:57] VITALS: PULSE 76
[2024-03-13 07:27] VITALS: BP 131/74; PULSE 83; RESP 24; TEMP 37; O2SAT 97
[2024-03-13] MEDS: pantoprazole DR 40 mg Tablet PO (08:58)
[2024-03-13] MEDS: ropinirole 1 mg Tablet PO (08:58)
[2024-03-13] MEDS: apixaban 5 mg Tablet PO (08:58)
[2024-03-13] MEDS: amiodarone 200 mg Tablet PO (08:58)
[2024-03-13] MEDS: phenyleph-mineral oil-petrolat Oint 28 gm 1 APPLIC TOPICAL (09:16)
[2024-03-13 11:24] VITALS: BP 141/85; PULSE 85; RESP 25; TEMP 36.8; O2SAT 92
--- NOTE | 2024-03-13 13:36 | PC.SOCIAL ---
Pg 2 IMM Updated pt on IMM. No questions voiced. Provided pt a copy. Initialed, dated, & timed a copy & placed in chart.
--- NOTE | 2024-03-13 14:07 | P.DS_ITS ---
Discharge Providers Date of Admission: 03/10/24 17:04 Date of Discharge: March 13, 2024 Attending Provider at Admission: Alexsander Patel Attending Provider at Discharge: Kym Soliz MD Primary Care Provider: Emanuel Serrano DO Diagnoses at Discharge Discharge Diagnosis (1) Paroxysmal atrial fibrillation with RVR: Status: Acute (2) Thrombosed hemorrhoids: Status: Acute Reason for Visit Reason for Visit: POLYPS ON RECTUM Hospital Course Hospital Course 83-year-old lady with history of hypertension, presented due to rectal discomfort/complaint, found to have hemorrhoids in the ER, however, additionally has noticed having some dyspnea with exertion, getting slightly lightheaded when shifting positions/lying down in bed. In the ER she was found to be in atrial fibrillation with RVR, heart rates 150s-160s. No overt reversible causes for A fib RVR. Patient states that she had been feeling progressive weakness since September of last year. Patient was initially started on Cardizem infusion, however heart rate was not adequately controlled therefore she was started on oral amiodarone infusion. With a combination of amiodarone and oral Cardizem 60 mg every 6 hours, her heart rate is much better controlled on the day of discharge today. Currently heart rate is ranging between 69 to 93 mmHg. Echocardiogram was performed for newly discovered atrial fibrillation. This showed mild concentric LVH, LVEF of 60%, no regional wall motion abnormalities or no significant valvular abnormality. TSH normal. Cardiac enzymes not significantly elevated. She is being discharged today after control of heart rate, feels at her baseline state of health. Currently being discharged on amiodarone 200 mg p.o. twice daily, Cardizem extended release 12-hour at 120 mg twice daily, Eliquis 5 mg twice daily for stroke prophylaxis. Extensively counseled to watch out for any bleeding manifestations. Oral ibuprofen discontinued to minimize risk of development of gastric ulceration and risk of bleeding. Outpatient referrals provided for follow-up with cardiology for A-fib and general surgery for thrombosed hemorrhoids. Patient instructed to maintain a blood pressure and heart rate chart by checking these vital signs twice a day and taking the chart to PCP at next appointment for review in case any dose adjustments need to be made. Instructed to hold Cardizem if heart rate less than 55 and or SBP less than 90 mmHg. Physical Exam Narrative: General: No acute distress, AO x3 HEENT: PERRLA, pupils bilaterally equal and reactive, pallors not present Chest: Normal vesicular breath sounds, no added sounds, equal good air entry bilaterally CVS: S1-S2 regular, no murmurs, no tachycardia, no gallops, no rubs Abdomen: Soft, nontender, no organomegaly, bowel sounds present Neuro: No focal deficits, no facial deformity, AO x3, power 5/5 in all limbs Discharge Data Studies Completed and Pending Completed Studies During Hospitalization Category Date Time Status XR chest 1V portable [id number] Stat Exams 03/10/24 16:09 Completed CV. echo complete* [id number] Routine Ultrasound 03/11/24 20:27 Completed Radiology Impressions Chest X-Ray 03/10/24 16:09 IMPRESSION: No acute cardiopulmonary process. Laboratory Results WBC 6.22 10^3/uL (3.29-11.43) 03/13/24 04:05 RBC 4.09 10^6/uL (3.85-5.65) 03/13/24 04:05 Hgb 11.60 g/dL (11.27-16.99) 03/13/24 04:05 Hct 36.5 % (36-47) 03/13/24 04:05 MCV 89.2 fl (85-98) 03/13/24 04:05 MCH 28.4 pg (27-33) 03/13/24 04:05 MCHC 31.8 g/dL (30-55) 03/13/24 04:05 RDW 13.9 % (12.1-15.1) 03/13/24 04:05 Plt Count 339 10^3/cmm (157-399) 03/13/24 04:05 MPV 9.0 fL (7.4-10.4) 03/13/24 04:05 Neut % (Auto) 69.6 % 03/13/24 04:05 Lymph % (Auto) 21.4 % 03/13/24 04:05 [place] % (Auto) 6.6 % 03/13/24 04:05 Eos % (Auto) 1.0 % 03/13/24 04:05 Baso % (Auto) 0.6 % 03/13/24 04:05 Neut # (Auto) 4.33 10^3/uL (1.8-7.7) 03/13/24 04:05 Lymph # (Auto) 1.3 10^3/uL (0.8-4.8) 03/13/24 04:05 [place] # (Auto) 0.4 10^3/uL (0.2-0.9) 03/13/24 04:05 Eos # (Auto) 0.1 10^3/uL (0.0-0.8) 03/13/24 04:05 Baso # (Auto) 0.0 10^3/uL (0.0-0.1) 03/13/24 04:05 Nucleated RBC % (auto) 0 % 03/13/24 04:05 Nucleated RBCs # 0.0 /100WBC 03/13/24 04:05 APTT 34.4 SECONDS (23.9-36.7) 03/12/24 16:01 Sodium 144 mmol/L (136-145) 03/13/24 04:05 Potassium 4.4 mmol/L (3.5-5.1) 03/13/24 04:05 Chloride 110 mmol/L (98-107) H 03/13/24 04:05 Carbon Dioxide 23 mmol/L (22-29) 03/13/24 04:05 Anion Gap 15.4 (5-19) 03/13/24 04:05 BUN 10 mg/dL (8-23) 03/13/24 04:05 Creatinine 1.1 mg/dL (0.5-0.9) H 03/13/24 04:05 GFR Calculation Not Reportable 03/13/24 04:05 Glucose 120 mg/dL (65-115) H 03/13/24 04:05 Estimat Average Glucose 105 03/11/24 05:17 Hemoglobin A1c 5.3 % (4.0-6.0) 03/11/24 05:17 Calculated Osmolality 298 mOsm/kg (285-295) H 03/13/24 04:05 Calcium 8.3 mg/dL (8.5-10.5) L 03/13/24 04:05 Magnesium 2.1 mg/dL (1.7-2.3) 03/13/24 04:05 Iron 48 ug/dL (37-145) 03/10/24 16:00 TIBC 273 mcg/dl 03/10/24 16:00 % Saturation 17.5 % (20-50) L 03/10/24 16:00 Unsat Iron Binding 225 ug/dL (112-347) 03/10/24 16:00 Total Bilirubin 0.2 mg/dL (0.15-1.2) 03/13/24 04:05 AST 12 U/L (0-32) 03/13/24 04:05 ALT 10 U/L (0-33) 03/13/24 04:05 Alkaline Phosphatase 70 U/L (35-105) 03/13/24 04:05 Troponin T Baseline 23 ng/L (0-10) H 03/10/24 16:00 Troponin T 120 Minute 19.12 ng/L (0-10) H 03/10/24 18:23 Delta Troponin T -3.88 ABS# (0-10) L 03/10/24 18:23 Troponin T Hi Sens 6Hr 18.16 ng/L (0-10) H 03/10/24 21:09 Troponin T Hi Sens 6Hr Delta -4.84 ng/L (0-12) L 03/10/24 21:09 NT-Pro-B Natriuret Pep 3767 pg/mL (0-450) H 03/10/24 16:00 Total Protein 5.8 g/dL (6.6-8.7) L 03/13/24 04:05 Albumin 3.3 g/dL (3.5-5.2) L 03/13/24 04:05 Globulin 2.5 g/dL (1.3-4.6) 03/13/24 04:05 Triglycerides 144 mg/dL (0-150) 03/11/24 05:17 Cholesterol 182 mg/dL (0-200) 03/11/24 05:17 LDL Cholesterol, Calc 123 mg/dL (50-129) 03/11/24 05:17 Total VLDL Cholesterol 29 mg/dL (0-30) 03/11/24 05:17 HDL Cholesterol 30 mg/dL (60-100) L 03/11/24 05:17 Cholesterol/HDL Ratio 6.07 mg/dL (0.0-4.40) H 03/11/24 05:17 Folate 10.9 ng/mL (4.8-37.3) 03/11/24 05:17 TSH 1.06 uIU/mL (0.27-4.20) 03/10/24 16:00 Urine Color Yellow (Yellow) 03/10/24 17:20 Urine Appearance Cloudy (CLEAR) A 03/10/24 17:20 Urine pH 5 (5-7) 03/10/24 17:20 Ur Specific [place] 1.010 (1.005-1.030) 03/10/24 17:20 Urine Protein Neg (Negative) 03/10/24 17:20 Urine Glucose (UA) Norm (Normal) 03/10/24 17:20 Urine Ketones Negative (Negative) 03/10/24 17:20 Urine Blood 2+ (Negative) H 03/10/24 17:20 Urine Nitrate Positive (Negative) H 03/10/24 17:20 Urine Bilirubin 1+ (Negative) H 03/10/24 17:20 Urine Urobilinogen Norm mg/dL (Negative) 03/10/24 17:20 Ur Leukocyte Esterase 2+ (Negative) H 03/10/24 17:20 Urine RBC 5-10 /hpf (0-2) H 03/10/24 17:20 Urine WBC 55-80 /hpf (0-5) H 03/10/24 17:20 Ur Squamous Epith Cells 5-10 /hpf (0-5) H 03/10/24 17:20 Amorphous Sediment Trace /hpf 03/10/24 17:20 Urine Bacteria 3+ /hpf (NONE) H 03/10/24 17:20 Hyaline Casts 0-4 /lpf H 03/10/24 17:20 Urine Mucus Trace /hpf 03/10/24 17:20 Vitals Last Vital Signs Temp 98.2 F 03/13/24 11:24 Pulse 85 03/13/24 11:24 Resp 25 H 03/13/24 11:24 BP 141/85 03/13/24 11:24 Pulse Ox 92 03/13/24 11:24 O2 Del Method Room Air 03/13/24 11:24 Discharge Plan Discharge Patient Disposition: Home Condition: Stable Prescriptions: New Pacerone 200 mg Tablet 200 mg PO BID 30 Days Qty: 60 1RF tramadol 50 mg Tablet 50 mg PO Q6H PRN (Reason: Moderate Pain) 5 Days Qty: 20 0RF Eliquis 5 mg Tablet 5 mg PO BID@0900,2100 30 Days Qty: 30 1RF cefuroxime axetil 500 mg tablet 500 mg PO BID 5 Days Qty: 10 0RF Hemorrhoidal(PE-min oil-marivel) 0.25-14-74.9 % ointment 1 applic IN BID Qty: 56 0RF diltiazem HCl 120 mg capsule,extended release 12 hr 120 mg PO BID Qty: 60 0RF pantoprazole 40 mg tablet,delayed release (DR/EC) 40 mg PO DAILY 28 Days Qty: 30 0RF Continued cholecalciferol (vitamin D3) 125 mcg (5,000 unit) capsule 125 mcg PO DAILY cyclobenzaprine 5 mg tablet 5 mg PO TID PRN (Reason: Spasms) Qty: 60 2RF ropinirole 1 mg tablet 1 mg PO DAILY Qty: 30 2RF lorazepam 0.5 mg tablet 0.5 mg PO DAILY PRN (Reason: anxiety, insomnia) Qty: 30 5RF prednisone 20 mg tablet See Rx Instructions .Route .COMPLEX Qty: 16 0RF Rx Instructions: Take 2 tabs PO x 5 days, then 1 tab PO x 4 days, then 1/2 tab x 4 days. pantoprazole 40 mg tablet,delayed release (DR/EC) 40 mg PO DAILY Qty: 90 1RF magnesium 200 mg Tablet 200 mg PO DAILY vitamin B96-kycts acid 2,500-400 mcg Tablet,Disintegrating 1 tab PO DAILY Discontinued ibuprofen 200 mg Tablet 600 mg PO Q6H PRN (Reason: Pain) amlodipine 5 mg tablet 5 mg PO DAILY Discharge Orders: Discharge Order (Routine); Ordered 03/13/24 Ordered By: Kym Soliz Referrals: Emanuel Serrano DO [Primary Care Provider] - 03/29/24 8:30 am () Juan F Leblanc MD [Physician] - (thrombosed hemorrhoids ) Ray Vogel MD [Physician] - 06/08/24 11:00 am (new onset A fib This is an new patient appointment, if sooner appointment becomes available clinic will contact you. Thank you ) Discharge Diet: Usual diet Discharge Activity: Resume usual activity Patient Instructions: Cefuroxime (By mouth) (Ceftin), Diltiazem (By mouth) (Cardizem, Cardizem CD, Cardizem LA, Cardizem SR), Amiodarone (By mouth) (Cordarone, Pacerone), Tramadol (By mouth), Apixaban (By mouth) (Eliquis), A-fib (Atrial Fibrillation) (DC), Hemorrhoids (DC), Thrombosed Hemorrhoid (GEN), Opioid Safety Patient's Health Concerns: check your BP and HR twice a day at the same time and maintain a chart. Take this chart to your PCP for review at next appointment. Return to ER or yregnt care for any bleeding manifestations. Discontinue ibuprofen as it cause stomach ulcers which can bleed while on Eliquis. Do not take diltiazem if heart rate is less than 55 or blood pressure less than 90mmHG systolic. Discharge Attestations Time Spent in Discharge Care*: greater than 30 min Quality Metrics Clinical Quality Measures [ No reported AMI, CVA or VTE this stay] Coding Level of Care Code Acute Code for Chg Fwd Diagnoses Paroxysmal atrial fibrillation with RVR I48.0 Thrombosed hemorrhoids K64.5
[2024-03-13 15:01] VITALS: BP 141/85; PULSE 85; RESP 25; TEMP 36.8; O2SAT 92
== END 2024-03-13 15:26 | disposition home or self-care (01) | DRG 309 ==
LOC: ER 16:14 → CSU 17:29
PROVIDERS: Family Medicine; Student in an Organized Health Care Education/Training Program; Admitting Provider Internal Medicine; Emergency Provider Family Medicine; PCP Family Medicine; Visit Provider Student in an Organized Health Care Education/Training Program
DX: I48.0 Paroxysmal atrial fibrillation (principal); N17.9 Acute kidney failure, unspecified; N39.0 Urinary tract infection, site not specified; E78.5 Hyperlipidemia, unspecified; I47.20 Ventricular tachycardia, unspecified; K21.9 Gastro-esophageal reflux disease without esophagitis; Z87.891 Personal history of nicotine dependence; K64.5 Perianal venous thrombosis; I10 Essential (primary) hypertension; E87.6 Hypokalemia
CPT/HCPCS: 36415; 71045; 80053; 80061; 81001; 81015; 82746; 83036; 83540; 83550; 83735; 83880; 84443; 84484; 85025; 85730; 87077; 87086; 87186; 93005; 93306; 96365; 96366; 96367; 96375; 96376; 99291; 99292; J0283; J0696; J1644; J3475; J3490

== ENCOUNTER → 2024-03-28 10:47 | Outpatient (BNVA) | payer MEDICARE, SELFPAY | PROVIDERS: PCP Family Medicine; Visit Provider Surgery | DX: K57.90 Diverticulosis of intestine, part unspecified, without perforation or abscess without bleeding (principal); K64.5 Perianal venous thrombosis | CPT/HCPCS: 99203; 99214 ==

== ENCOUNTER → 2024-06-08 10:54 | Outpatient (BNVA) | payer MEDICARE, SELFPAY | PROVIDERS: PCP Family Medicine; Visit Provider Internal Medicine Cardiovascular Disease | DX: R07.9 Chest pain, unspecified (principal); I48.0 Paroxysmal atrial fibrillation; K64.5 Perianal venous thrombosis; R94.31 Abnormal electrocardiogram [ECG] [EKG] | CPT/HCPCS: 93005; 99214 ==

== ENCOUNTER → 2024-06-28 10:27 | Outpatient (BNVA) | payer MEDICARE, SELFPAY | PROVIDERS: PCP Family Medicine; Visit Provider Nurse Practitioner Family | DX: R39.9 Unspecified symptoms and signs involving the genitourinary system (principal) | CPT/HCPCS: 81000 ==

== ENCOUNTER 2024-07-03 09:50 | Emergency (ER) | payer MEDICARE, SELFPAY ==
[2024-07-03 10:07] VITALS: BP 151/71; PULSE 91; RESP 18; TEMP 36.8; O2SAT 95
[2024-07-03 10:47] LABS: Basophils # 0.1 10^3/uL (0.0-0.1); Basophils % 0.9 %; Eosinophils # 0.1 10^3/uL (0.0-0.8); Eosinophils % 0.9 %; Hematocrit 40.1 % (36-47); Lymphocytes # 1.1 10^3/uL (0.8-4.8); Lymphocytes % 19.4 %; Mean Corpuscular HGB Conc 33.7 g/dL (30-55); Mean Corpuscular Hemoglobin 28.8 pg (27-33); Mean Corpuscular Volume 85.5 fl (85-98); Mean Platelet Volume 9.5 fL (7.4-10.4); Monocytes # 0.4 10^3/uL (0.2-0.9); Monocytes % 6.1 %; Neutrophils # 4.25 10^3/uL (1.8-7.7); Neutrophils % 72.2 %; Nucleated Red Blood Cells % 0 %; Platelet Count 275 10^3/cmm (157-399); Red Blood Count 4.69 10^6/uL (3.85-5.65); Red Cell Distribution Width 14.1 % (12.1-15.1); White Blood Count 5.88 10^3/uL (3.29-11.43)
[2024-07-03 11:07] LABS: Alanine Aminotransferase 16 U/L (0-33); Albumin Level 4.2 g/dL (3.5-5.2); Alkaline Phosphatase 96 U/L (35-105); Anion Gap 13.1 (5-19); Aspartate Amino Transferase 21 U/L (0-32); Blood Urea Nitrogen 23 mg/dL (8-23); Calcium 9.2 mg/dL (8.5-10.5); Carbon Dioxide 28 mmol/L (22-29); Chloride 101 mmol/L (98-107); Glucose 94 mg/dL (65-115); Osmolality Calculated 289 mOsm/kg (285-295); Potassium 4.1 mmol/L (3.5-5.1); Sodium 138 mmol/L (136-145); Total Bilirubin 0.4 mg/dL (0.15-1.2); Total Protein 7.2 g/dL (6.6-8.7)
== END 2024-07-03 13:00 | disposition left against medical advice (07) ==
PROVIDERS: Physician Assistant; Emergency Provider Family Medicine; PCP Family Medicine
DX: Z53.21 Procedure and treatment not carried out due to patient leaving prior to being seen by health care provider (principal)
CPT/HCPCS: 36415; 80053; 81000; 85025

== ENCOUNTER → 2024-07-07 10:17 | Outpatient (BNVA) | payer MEDICARE, SELFPAY | PROVIDERS: PCP Family Medicine; Visit Provider Emergency Medicine | DX: R31.9 Hematuria, unspecified (principal) | CPT/HCPCS: 81000 ==

== ENCOUNTER → 2024-08-01 09:16 | Outpatient (BNVA) | payer MEDICARE, SELFPAY | PROVIDERS: PCP Family Medicine | DX: R39.9 Unspecified symptoms and signs involving the genitourinary system (principal) | CPT/HCPCS: 81000; 87086 ==

== ENCOUNTER 2024-10-16 15:18 | Outpatient (CLI) | payer MEDICARE, SELFPAY ==
--- NOTE | 2024-10-16 15:22 | CT_ITS ---
WS: [id number] CT ABDOMEN AND PELVIS WITH AND WITHOUT CONTRAST HISTORY: GROSS HEMATURIA TECHNIQUE: Unenhanced 5 mm axial imaging first performed through the abdomen. Post contrast imaging t hrough the abdomen and pelvis. Oral contrast has been provided. Sagittal and coronal reformats are s ubmitted. All CT scans at [facility] use at least one of these dose optimization techniques: automated exposure control; mA and/or kV adjustment per patient size (includes targeted exams where d ose is matched to clinical indication); or iterative reconstruction. CONTRAST: Omnipaque 350; 95 mL IV. DLP: 2026.65 mGy.cm COMPARISON: None available. Several tiny micronodules are noted at the lung bases. Chronic emphysema. No mass. Heart is top sally l size to slightly enlarged. Small hiatal hernia. Incompletely visualized 12 mm soft tissue focus wit h calcification in the paraesophageal distribution is probably a lymph node. There are additional blayne cified lymph nodes at the RIGHT hilum. Normal liver and portal vein. Cholelithiasis without acute cholecystitis. No bile duct obstruction. N ormal size spleen with granulomata. Normal pancreas. Normal adrenal glands. Aorta: Scattered calcified plaque. Mesenteric arteries are normally enhancing. RIGHT kidney: 9.4 cm in length. There is mild diffuse cortical thinning. No mass or obstruction. No c alcification. No uroepithelial mass. Normal size ureter is incompletely distended with excreted contr ast. LEFT kidney: 9.5 cm in length with mild diffuse cortical thinning. No solid mass. There are a few too small to characterize hypodensities which are likely cysts. No renal or ureteral calcifications. The ureter is not completely distended with excreted contrast but does not appear dilated. Urinary bladder: There is a large soft tissue mass towards the LEFT apex of the urinary bladder. This is along the superior posterior bladder measuring 1.5 x 5.6 cm with enhancement. There is additional filling defect in the excreted contrast in the RIGHT base of the bladder but this may be a filling d efect during excreted contrast. There is an additional smaller and there is additional abnormal enhan cement along the RIGHT lateral bladder wall which is nodular and smaller in extent as compared to the bladder mass towards the LEFT apex. Normal stomach. No small bowel obstruction. No colon obstruction. Mild diffuse constipation. Mild dis kimi diverticular disease without acute diverticulitis. There is a very short segment of the distal colon which is in close contact with the bladder wall at the site of tumor. Bladder neoplasm likely extends through the bladder wall as there is adjacent stra nding within the fat. Soft tissue infiltration is in short contact with the sigmoid colon. No ascites. No adenopathy. No osteolytic bone lesions. Degenerative sclerotic changes in the lumbar s pine. CT/CT abdomen pelvis wo/w [id number] IMPRESSION: 1. Large urinary bladder mass towards the LEFT apex measures at least 1.5 x 5. 6 cm. There is additional enhancement along the RIGHT lateral bladder wall whic h is more nodular. 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 2. There is a short segment of bladder tumor that is in close contact with the sigmoid colon. There is soft tissue infiltration and suspicious for bladder tu mor extending through the bladder wall contacting a short segment of the sigmoi d colon. Cannot confirm fistula at this time. 3. No ascites or adenopathy identified. 4. Kidneys are normal size with mild cortical thinning. 5. No ureteral obstruction. 6. Cholelithiasis without acute cholecystitis. 7. Tiny micronodules at the lung bases.
[2024-10-16] MEDS: iohexol 350 mg/mL 500 mL Btl (per mL) IV (15:41)
== END 2024-10-16 15:19 | disposition home or self-care (01) ==
LOC: RAD 15:21
PROVIDERS: PCP Family Medicine; Visit Provider Nurse Practitioner Family
DX: D41.4 Neoplasm of uncertain behavior of bladder (principal); R93.3 Abnormal findings on diagnostic imaging of other parts of digestive tract; R91.8 Other nonspecific abnormal finding of lung field; J43.9 Emphysema, unspecified; K44.9 Diaphragmatic hernia without obstruction or gangrene; K80.20 Calculus of gallbladder without cholecystitis without obstruction; R31.0 Gross hematuria
CPT/HCPCS: 74178

== ENCOUNTER 2024-10-27 16:18 | Emergency (ER) | payer MEDICARE, SELFPAY ==
[2024-10-27 16:22] VITALS: BP 135/81; PULSE 120; RESP 16; TEMP 36.8; O2SAT 96; BMI 30.9
[2024-10-27 17:04] LABS: Basophils # 0.1 10^3/uL (0.0-0.1); Basophils % 0.7 %; Eosinophils % 0.4 %; Hematocrit 31.8 % (36-47); Lymphocytes # 1.4 10^3/uL (0.8-4.8); Lymphocytes % 19.4 %; Mean Corpuscular HGB Conc 32.7 g/dL (30-55); Mean Corpuscular Hemoglobin 28.3 pg (27-33); Mean Corpuscular Volume 86.4 fl (85-98); Mean Platelet Volume 9.8 fL (7.4-10.4); Monocytes # 0.5 10^3/uL (0.2-0.9); Monocytes % 6.3 %; Neutrophils # 5.34 10^3/uL (1.8-7.7); Neutrophils % 72.8 %; Nucleated Red Blood Cells % 0 %; Platelet Count 305 10^3/cmm (157-399); Red Blood Count 3.68 10^6/uL (3.85-5.65); Red Cell Distribution Width 13.4 % (12.1-15.1); White Blood Count 7.33 10^3/uL (3.29-11.43)
[2024-10-27 17:26] LABS: Alanine Aminotransferase 11 U/L (0-33); Albumin Level 4.1 g/dL (3.5-5.2); Alkaline Phosphatase 74 U/L (35-105); Anion Gap 14.8 (5-19); Aspartate Amino Transferase 16 U/L (0-32); Blood Urea Nitrogen 24 mg/dL (8-23); Calcium 9.7 mg/dL (8.5-10.5); Carbon Dioxide 23 mmol/L (22-29); Chloride 106 mmol/L (98-107); Creatinine Clr Calc Pharmacy 35.4298; Globulin 2.9 g/dL (1.3-4.6); Glucose 106 mg/dL (65-115); Osmolality Calculated 294 mOsm/kg (285-295); Potassium 3.8 mmol/L (3.5-5.1); Sodium 140 mmol/L (136-145); Total Bilirubin 0.3 mg/dL (0.15-1.2)
[2024-10-27 17:28] LABS: Lactic Sepsis W/Reflex 1.3 mmol/L (0.5-2.2)
[2024-10-27 20:43] VITALS: BP 153/65; PULSE 91; O2SAT 97
--- NOTE | 2024-10-27 21:25 | W.ED.FEMALGU ---
Documented by User: Kelvin Leger DO 10/28/24 06:33 HPI - Female Genitourinary General: Chief complaint: Urogenital-Female Stated complaint: blood in urine Time Seen by Provider: 10/27/24 20:34 History of Present Illness: The patient presents with a chief complaint of hematuria and pain for the past 2-3 months. She reports having been to Urgent Care five times and [place] once, where they found no issues with her urine. However, upon visiting [place], they discovered 7 different infections in her bladder. A recent CT scan revealed a mass in her bladder, causing her discomfort. The patient has not yet started the prescribed medication containing powders, which she received today. The patient has been experiencing bleeding and clotting, with the most recent episode occurring yesterday. She reports difficulty in urinating and significant pain, requesting pain medication. The patient has a history of visiting a urologist in [place] but was unable to attend her appointment today due to transportation issues. The patient's hemoglobin level is 10, and she expresses concern about the possibility of needing a blood transfusion if her bleeding continues. She has a family history of cancer, with her daughter currently battling leukemia. The patient is apprehensive about the possibility of hospitalization and transportation to another facility but is willing to follow the doctor's recommendations. Related Data Home Medications Medication Instructions Recorded Confirmed cholecalciferol (vitamin D3) 125 125 mcg PO DAILY 04/08/20 10/28/24 mcg (5,000 unit) capsule magnesium 200 mg tablet 200 mg PO DAILY 03/10/24 10/28/24 vitamin B12 2,500 mcg-folic acid 1 tab PO DAILY 03/10/24 10/28/24 400 mcg disintegrating tablet amlodipine 5 mg tablet 5 mg PO DAILY 06/08/24 10/28/24 ferrous sulfate 325 mg (65 mg 325 mg PO DAILY 10/28/24 10/28/24 iron) tablet (Iron (ferrous sulfate)) fosfomycin tromethamine 3 gram 3 g PO DAILY 10/28/24 10/28/24 oral packet Previous Rx's Medication Instructions Recorded pantoprazole 40 mg tablet,delayed 40 mg PO DAILY #90 tabs 11/26/23 release cyclobenzaprine 5 mg tablet 5 mg PO TID PRN Spasms #60 tabs 01/04/24 hydrochlorothiazide 12.5 mg tablet 12.5 mg PO DAILY #30 tabs 05/18/24 lorazepam 0.5 mg tablet 0.5 mg PO DAILY PRN anxiety, 07/06/24 insomnia #30 tabs phenazopyridine 200 mg tablet 200 mg PO Q8H PRN pain 9 doses #9 07/07/24 (Pyridium) tabs bupropion HCl 150 mg 24 hr tablet, 150 mg PO QAM #90 tabs 09/25/24 extended release aspirin 81 mg tablet,delayed 81 mg PO DAILY #1 tab 10/26/24 release gabapentin 300 mg capsule 300 mg PO .qpm #30 caps 10/26/24 Allergies Allergy/AdvReac Type Severity Reaction Status Date / Time No Known Allergies Allergy Verified 10/26/24 11:15 PFSH ED PFSH: Medical History (Updated 10/28/24 @ 00:26 by Kelvin Leger DO) Bladder mass on CT 10/17--to have cystoscopy by urology [facility] Hematuria due to chronic cystitis CT shows bladder mass; [facility] to do cystoscopy 1.16.24 Major depressive disorder, recurrent, moderate Interstitial cystitis dx per urologist Dr. Monahan Hx of breast cancer Left breast lumpectomy only; 2002 Paroxysmal atrial fibrillation with RVR stopping eliquis 1.2.25 b/c hematuria and has bladder mass--getting cystoscopy oct 2024 [facility]; putting on asa Anxiety Restless leg Essential hypertension Insomnia Hemorrhoids Hyperlipidemia GERD (gastroesophageal reflux disease) Colon polyp Diverticulosis Surgical History (Updated 10/26/24 @ 12:00 by Nena Weaver MD) History of bilateral cataract extraction Hx of BSO (bilateral salpingo-oophorectomy) cysts Hx of shoulder surgery Right Hx of hysterectomy no cancer Hx of breast lump removal left breast lumpectomy; for breast cancer History of colonoscopy 2004 Family History Mother Dementia Father Cerebral hemorrhage Grandmother Cancer Brother Stroke Denies family history of Anesthesia complication Bleeding disorder Social History Smoking and tobacco/nicotine status: former use of tobacco/nicotine Quit status (tobacco/nicotine): has quit using Year quit tobacco: Second hand smoke exposure: No Alcohol intake: never Substance/Drug Use: never Adopted: No Caregiver/support person: No Lives independently: Yes Housing: Apartment Marital status: / Number of children: 3 Current occupational status: retired Current occupation: [employer] --worked in [employer] Exam Const: COMMON NORMALS: no acute distress, patient oriented x3, healthy appearing, alert and well nourished HENMT: COMMON NORMALS: normocephalic HEAD & SCALP: normocephalic Eye: COMMON NORMALS: EOMs intact bilaterally Neck/C-Spine: COMMON NORMALS: full ROM and supple Resp: COMMON NORMALS: normal respiratory effort, No retractions and clear to auscultation bilaterally AUSCULTATION: clear to auscultation bilaterally Cardio: COMMON NORMALS: regular rate, regular rhythm, No gallops present (Cardio) and No murmurs present (Cardio) RATE: regular rate RHYTHM: regular rhythm GI: COMMON NORMALS: Soft to palpation and non-tender PALPATION: Yes Soft to palpation : BLADDER/KIDNEY EXAM: Yes catheter in place Catheter type (Female): urethral (Gross hematuria) Extremity: GENERAL: Yes normal exam except as noted Neuro: COMMON NORMALS: patient oriented x3 SENSORIUM/ORIENTATION: Yes alert Skin: COMMON NORMALS: no rashes or lesions noted GENERAL SKIN EXAM: no rashes or lesions noted Course Vital Signs: Vital signs: Vital Signs Temperature 98.3 F 10/27/24 16:22 Pulse Rate 89 10/28/24 16:54 Respiratory Rate 18 10/28/24 16:54 Blood Pressure 152/86 10/28/24 16:54 Pulse Oximetry 94 10/28/24 16:54 Oxygen Delivery Me thod Room Air 10/28/24 15:58 MDM - Female Medical Decision Making 84-year-old female presented to the emergency department for evaluation of suprapubic pain and hematuria. Patient had recent diagnosis of a bladder mass approximately 3 to 4 days ago. She has been having lots of blood in your urine as well as clots. Patient has been referred to [place] for urology care. Due to the amount of gross hematuria and anemia the decision was made to transfer the patient to [place] for further management of hematuria. Her labs did also demonstrate a slight acute kidney injury likely secondary to obstructive uropathy as she did have significant output after the Auguste was placed. Upon review of the chart there was a CT scan done at the end of September that did show a large urinary bladder mass. Additional findings down in radiology section. Dr. Viramontes excepted the patient from urology. Risks and benefits were discussed with the patient and she was in agreement with this plan. The patient was awaiting transport and this case was turned over to Dr. Da Silva. Lab Data 10/27/24 16:46 10/27/24 16:46 Laboratory Results WBC 7.33 10^3/uL (3.29-11.43) 10/27/24 16:46 RBC 3.68 10^6/uL (3.85-5.65) L 10/27/24 16:46 Hgb 10.40 g/dL (11.27-16.99) L 10/27/24 16:46 Hct 31.8 % (36-47) L 10/27/24 16:46 MCV 86.4 fl (85-98) 10/27/24 16:46 MCH 28.3 pg (27-33) 10/27/24 16:46 MCHC 32.7 g/dL (30-55) 10/27/24 16:46 RDW 13.4 % (12.1-15.1) 10/27/24 16:46 Plt Count 305 10^3/cmm (157-399) 10/27/24 16:46 MPV 9.8 fL (7.4-10.4) 10/27/24 16:46 Neut % (Auto) 72.8 % 10/27/24 16:46 Lymph % (Auto) 19.4 % 10/27/24 16:46 Price % (Auto) 6.3 % 10/27/24 16:46 Eos % (Auto) 0.4 % 10/27/24 16:46 Baso % (Auto) 0.7 % 10/27/24 16:46 Neut # (Auto) 5.34 10^3/uL (1.8-7.7) 10/27/24 16:46 Lymph # (Auto) 1.4 10^3/uL (0.8-4.8) 10/27/24 16:46 Price # (Auto) 0.5 10^3/uL (0.2-0.9) 10/27/24 16:46 Eos # (Auto) 0.0 10^3/uL (0.0-0.8) 10/27/24 16:46 Baso # (Auto) 0.1 10^3/uL (0.0-0.1) 10/27/24 16:46 Nucleated RBC % (auto) 0 % 10/27/24 16:46 Nucleated RBCs # 0.0 /100WBC 10/27/24 16:46 Sodium 140 mmol/L (136-145) 10/27/24 16:46 Potassium 3.8 mmol/L (3.5-5.1) 10/27/24 16:46 Chloride 106 mmol/L (98-107) 10/27/24 16:46 Carbon Dioxide 23 mmol/L (22-29) 10/27/24 16:46 Anion Gap 14.8 (5-19) 10/27/24 16:46 BUN 24 mg/dL (8-23) H 10/27/24 16:46 Creatinine 1.2 mg/dL (0.5-0.9) H 10/27/24 16:46 GFR Calculation Not Reportable 10/27/24 16:46 Glucose 106 mg/dL (65-115) 10/27/24 16:46 Calculated Osmolality 294 mOsm/kg (285-295) 10/27/24 16:46 Lactic Acid 1.3 mmol/L (0.5-2.2) 10/27/24 16:46 Calcium 9.7 mg/dL (8.5-10.5) 10/27/24 16:46 Total Bilirubin 0.3 mg/dL (0.15-1.2) 10/27/24 16:46 AST 16 U/L (0-32) 10/27/24 16:46 ALT 11 U/L (0-33) 10/27/24 16:46 Alkaline Phosphatase 74 U/L (35-105) 10/27/24 16:46 C-Reactive Protein 3.0 mg/L (0.0-4.9) 10/27/24 16:46 Total Protein 7.0 g/dL (6.6-8.7) 10/27/24 16:46 Albumin 4.1 g/dL (3.5-5.2) 10/27/24 16:46 Globulin 2.9 g/dL (1.3-4.6) 10/27/24 16:46 Urine Color Red (Yellow) A 10/27/24 21:20 Urine Appearance Turbid (CLEAR) A 10/27/24 21:20 Urine pH Not Reportable 10/27/24 21:20 Ur Specific [place] Not Reportable 10/27/24 21:20 Urine Protein Not Reportable 10/27/24 21:20 Urine Glucose (UA) Not Reportable 10/27/24 21:20 Urine Ketones Not Reportable 10/27/24 21:20 Urine Blood Not Reportable 10/27/24 21:20 Urine Nitrate Not Reportable 10/27/24 21:20 Urine Bilirubin Not Reportable 10/27/24 21:20 Urine Urobilinogen Not Reportable 10/27/24 21:20 Ur Leukocyte Esterase Not Reportable 10/27/24 21:20 Urine RBC Too numerous to cnt /hpf (0-2) H 10/27/24 21:20 Urine WBC >100 /hpf (0-5) H 10/27/24 21:20 Ur Squamous Epith Cells 0-4 /hpf (0-5) H 10/27/24 21:20 Amorphous Sediment Not Reportable 10/27/24 21:20 Urine Bacteria Trace /hpf (NONE) 10/27/24 21:20 No radiology studies performed this visit Other Data CT abdomen pelvis with contrast from September: 1. Large urinary bladder mass towards the LEFT apex measures at least 1.5 x 5.6 cm. There is additional enhancement along the RIGHT lateral bladder wall which is more nodular. 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 2. There is a short segment of bladder tumor that is in close contact with the sigmoid colon. There is soft tissue infiltration and suspicious for bladder tumor extending through the bladder wall contacting a short segment of the sigmoid colon. Cannot confirm fistula at this time. 3. No ascites or adenopathy identified. 4. Kidneys are normal size with mild cortical thinning. 5. No ureteral obstruction. 6. Cholelithiasis without acute cholecystitis. 7. Tiny micronodules at the lung bases. 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 [facility] Documented by User: Wilton Da Silva DO 11/01/24 09:17 HPI - Female Genitourinary General: Chief complaint: Urogenital-Female Stated complaint: blood in urine Time Seen by Provider: 10/27/24 20:34 Related Data Home Medications Medication Instructions Recorded Confirmed cholecalciferol (vitamin D3) 125 125 mcg PO DAILY 04/08/20 10/28/24 mcg (5,000 unit) capsule magnesium 200 mg tablet 200 mg PO DAILY 03/10/24 10/28/24 vitamin B12 2,500 mcg-folic acid 1 tab PO DAILY 03/10/24 10/28/24 400 mcg disintegrating tablet amlodipine 5 mg tablet 5 mg PO DAILY 06/08/24 10/28/24 ferrous sulfate 325 mg (65 mg 325 mg PO DAILY 10/28/24 10/28/24 iron) tablet (Iron (ferrous sulfate)) fosfomycin tromethamine 3 gram 3 g PO DAILY 10/28/24 10/28/24 oral packet Previous Rx's Medication Instructions Recorded pantoprazole 40 mg tablet,delayed 40 mg PO DAILY #90 tabs 11/26/23 release cyclobenzaprine 5 mg tablet 5 mg PO TID PRN Spasms #60 tabs 01/04/24 hydrochlorothiazide 12.5 mg tablet 12.5 mg PO DAILY #30 tabs 05/18/24 lorazepam 0.5 mg tablet 0.5 mg PO DAILY PRN anxiety, 07/06/24 insomnia #30 tabs phenazopyridine 200 mg tablet 200 mg PO Q8H PRN pain 9 doses #9 07/07/24 (Pyridium) tabs bupropion HCl 150 mg 24 hr tablet, 150 mg PO QAM #90 tabs 09/25/24 extended release aspirin 81 mg tablet,delayed 81 mg PO DAILY #1 tab 10/26/24 release gabapentin 300 mg capsule 300 mg PO .qpm #30 caps 10/26/24 Allergies Allergy/AdvReac Type Severity Reaction Status Date / Time No Known Allergies Allergy Verified 10/26/24 11:15 PFSH ED PFS: Medical History (Updated 10/28/24 @ 00:26 by Kelvin Leger DO) Bladder mass on CT 10/17--to have cystoscopy by [facility]rology [facility] Hematuria due to chronic cystitis CT shows bladder mass; [facility] to do cystoscopy 11.09.23 Major depressive disorder, recurrent, moderate Interstitial cystitis dx per urologist Dr. Monahan Hx of breast cancer Left breast lumpectomy only; 2002 Paroxysmal atrial fibrillation with RVR stopping eliquis 1.12.19 b/c hematuria and has bladder mass--getting cystoscopy oct 2024 [facility]; putting on asa Anxiety Restless leg Essential hypertension Insomnia Hemorrhoids Hyperlipidemia GERD (gastroesophageal reflux disease) Colon polyp Diverticulosis Surgical History (Updated 10/26/24 @ 12:00 by Nena Weaver MD) History of bilateral cataract extraction Hx of BSO (bilateral salpingo-oophorectomy) cysts Hx of shoulder surgery Right Hx of hysterectomy no cancer Hx of breast lump removal left breast lumpectomy; for breast cancer History of colonoscopy 2004 Family History Mother Dementia Father Cerebral hemorrhage Grandmother Cancer Brother Stroke Denies family history of Anesthesia complication Bleeding disorder Social History Smoking and tobacco/nicotine status: former use of tobacco/nicotine Quit status (tobacco/nicotine): has quit using Year quit tobacco: Second hand smoke exposure: No Alcohol intake: never Substance/Drug Use: never Adopted: No Caregiver/support person: No Lives independently: Yes Housing: Apartment Marital status: / Number of children: 3 Current occupational status: retired Current occupation: [employer] --worked in [employer] Vital Signs: Vital signs: Vital Signs Temperature 98.3 F 10/27/24 16:22 Pulse Rate 89 10/28/24 16:54 Respiratory Rate 18 10/28/24 16:54 Blood Pressure 152/86 01/04/25 16:54 Pulse Oximetry 94 10/28/24 16:54 Oxygen Delivery Me thod Room Air 10/28/24 15:58 MDM - Female Medical Decision Making 84-year-old female presented to the emergency department for evaluation of suprapubic pain and hematuria. Patient had recent diagnosis of a bladder mass approximately 3 to 4 days ago. She has been having lots of blood in your urine as well as clots. Patient has been referred to [place] for urology care. Due to the amount of gross hematuria and anemia the decision was made to transfer the patient to [place] for further management of hematuria. Her labs did also demonstrate a slight acute kidney injury likely secondary to obstructive uropathy as she did have significant output after the Auguste was placed. Upon review of the chart there was a CT scan done at the end of September that did show a large urinary bladder mass. Additional findings down in radiology section. Dr. Viramontes excepted the patient from urology. Risks and benefits were discussed with the patient and she was in agreement with this plan. The patient was awaiting transport and this case was turned over to Dr. Da Silva. Care assumed to continue to shift. Patient have any further problems while here and ultimately was transferred to [place] as planned. Lab Data 10/27/24 16:46 10/27/24 16:46 Laboratory Results WBC 7.33 10^3/uL (3.29-11.43) 10/27/24 16:46 RBC 3.68 10^6/uL (3.85-5.65) L 10/27/24 16:46 Hgb 10.40 g/dL (11.27-16.99) L 10/27/24 16:46 Hct 31.8 % (36-47) L 10/27/24 16:46 MCV 86.4 fl (85-98) 10/27/24 16:46 MCH 28.3 pg (27-33) 10/27/24 16:46 MCHC 32.7 g/dL (30-55) 10/27/24 16:46 RDW 13.4 % (12.1-15.1) 10/27/24 16:46 Plt Count 305 10^3/cmm (157-399) 10/27/24 16:46 MPV 9.8 fL (7.4-10.4) 10/27/24 16:46 Neut % (Auto) 72.8 % 10/27/24 16:46 Lymph % (Auto) 19.4 % 10/27/24 16:46 Price % (Auto) 6.3 % 10/27/24 16:46 Eos % (Auto) 0.4 % 10/27/24 16:46 Baso % (Auto) 0.7 % 10/27/24 16:46 Neut # (Auto) 5.34 10^3/uL (1.8-7.7) 10/27/24 16:46 Lymph # (Auto) 1.4 10^3/uL (0.8-4.8) 10/27/24 16:46 Price # (Auto) 0.5 10^3/uL (0.2-0.9) 10/27/24 16:46 Eos # (Auto) 0.0 10^3/uL (0.0-0.8) 10/27/24 16:46 Baso # (Auto) 0.1 10^3/uL (0.0-0.1) 10/27/24 16:46 Nucleated RBC % (auto) 0 % 10/27/24 16:46 Nucleated RBCs # 0.0 /100WBC 10/27/24 16:46 Sodium 140 mmol/L (136-145) 10/27/24 16:46 Potassium 3.8 mmol/L (3.5-5.1) 10/27/24 16:46 Chloride 106 mmol/L (98-107) 10/27/24 16:46 Carbon Dioxide 23 mmol/L (22-29) 10/27/24 16:46 Anion Gap 14.8 (5-19) 10/27/24 16:46 BUN 24 mg/dL (8-23) H 10/27/24 16:46 Creatinine 1.2 mg/dL (0.5-0.9) H 10/27/24 16:46 GFR Calculation Not Reportable 10/27/24 16:46 Glucose 106 mg/dL (65-115) 10/27/24 16:46 Calculated Osmolality 294 mOsm/kg (285-295) 10/27/24 16:46 Lactic Acid 1.3 mmol/L (0.5-2.2) 10/27/24 16:46 Calcium 9.7 mg/dL (8.5-10.5) 10/27/24 16:46 Total Bilirubin 0.3 mg/dL (0.15-1.2) 10/27/24 16:46 AST 16 U/L (0-32) 10/27/24 16:46 ALT 11 U/L (0-33) 10/27/24 16:46 Alkaline Phosphatase 74 U/L (35-105) 10/27/24 16:46 C-Reactive Protein 3.0 mg/L (0.0-4.9) 10/27/24 16:46 Total Protein 7.0 g/dL (6.6-8.7) 10/27/24 16:46 Albumin 4.1 g/dL (3.5-5.2) 10/27/24 16:46 Globulin 2.9 g/dL (1.3-4.6) 10/27/24 16:46 Urine Color Red (Yellow) A 10/27/24 21:20 Urine Appearance Turbid (CLEAR) A 10/27/24 21:20 Urine pH Not Reportable 10/27/24 21:20 Ur Specific [place] Not Reportable 10/27/24 21:20 Urine Protein Not Reportable 10/27/24 21:20 Urine Glucose (UA) Not Reportable 10/27/24 21:20 Urine Ketones Not Reportable 10/27/24 21:20 Urine Blood Not Reportable 10/27/24 21:20 Urine Nitrate Not Reportable 10/27/24 21:20 Urine Bilirubin Not Reportable 10/27/24 21:20 Urine Urobilinogen Not Reportable 10/27/24 21:20 Ur Leukocyte Esterase Not Reportable 10/27/24 21:20 Urine RBC Too numerous to cnt /hpf (0-2) H 10/27/24 21:20 Urine WBC >100 /hpf (0-5) H 10/27/24 21:20 Ur Squamous Epith Cells 0-4 /hpf (0-5) H 10/27/24 21:20 Amorphous Sediment Not Reportable 10/27/24 21:20 Urine Bacteria Trace /hpf (NONE) 10/27/24 21:20 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 [facility] Ravi
[2024-10-27 21:27] LABS: Urine Appearance Turbid (CLEAR); Urine Color Red (Yellow)
[2024-10-27 21:28] LABS: Add Urine Culture? Yes; Bacteria Urine TRACE /hpf; RBC Urine TOO NUMEROUS TO CNT /hpf (0-2); Squamous Epithelial Cell Urine 0-4 /hpf (0-5); WBC Urine >100 /hpf (0-5)
[2024-10-27 22:41] VITALS: RESP 16; O2SAT 95
[2024-10-27] MEDS: morphine 4 mg/mL SDV 1 mL 2 MG IVP (22:41)
[2024-10-27 22:44] VITALS: BP 161/71; PULSE 95; O2SAT 95
[2024-10-27 23:30] VITALS: RESP 18; O2SAT 95
[2024-10-27] MEDS: HYDROmorphone 1 mg/mL INJ 1 mL IVP (23:30)
[2024-10-27] MEDS: sodium chloride 0.9% 1,000 ML 150 ML IV (23:31)
[2024-10-28] VITALS (24 sets, daily range): BP systolic 105–170; BP diastolic 52–90; PULSE 83–97; RESP 16–20; O2SAT 91–100
--- NOTE | 2024-10-28 00:01 | PC.NURSE ---
Report called to Vivienne Minaya RN at [facility] in [facility]. All questions and concerns were addressed at time of report.
--- NOTE | 2024-10-28 00:02 | PC.NURSE ---
This nurse was instructed by Dr Leger to manually irrigate patient's catheter, as it failed to continue to drain. 500cc of sterile water were manually irrigated into catheter; several dark clots were removed. Catheter now patent and draining at this time. Dr Leger notified of results.
[2024-10-28] MEDS: HYDROmorphone 1 mg/mL INJ 1 mL 0.5 MG IVP ×4 (05:16→16:24)
[2024-10-28] MEDS: sodium chloride 0.9% 1,000 ML 150 ML IV ×2 (06:20→13:09)
== END 2024-10-28 16:30 | disposition short-term general hospital (02) ==
PROVIDERS: Emergency Medicine; Emergency Provider General Practice; PCP Family Medicine
DX: N32.9 Bladder disorder, unspecified (principal); R31.0 Gross hematuria; D64.9 Anemia, unspecified; Z87.891 Personal history of nicotine dependence; E78.5 Hyperlipidemia, unspecified; Z85.3 Personal history of malignant neoplasm of breast
CPT/HCPCS: 36415; 80053; 81001; 83605; 85025; 86140; 87040; 87086; 96374; 96375; 96376; 99285; J1171; J2270; J7030

== ENCOUNTER → 2024-12-06 15:14 | Outpatient (BNVA) | payer MEDICARE, SELFPAY | PROVIDERS: PCP Family Medicine; Visit Provider Internal Medicine Cardiovascular Disease | DX: I48.0 Paroxysmal atrial fibrillation (principal); I10 Essential (primary) hypertension; Z87.891 Personal history of nicotine dependence; C67.9 Malignant neoplasm of bladder, unspecified; Z79.82 Long term (current) use of aspirin | CPT/HCPCS: 99214 ==

== ENCOUNTER 2024-12-12 06:00 | Oncology outpatient (recurring) (ONCR) | payer MEDICARE, SELFPAY ==
--- NOTE | 2024-12-06 08:55 | N.ONRAD NP_ITS ---
Radiation Oncology New Patient Visit Patient: Carol Merritt MR#: [id number] : 1940 Age: 84 Sex: Female Dictated by: Dr. 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 Chief Complaint / History of Present Illness: Patient is an 84-year-old lady who initially mention to her primary care that she had blood in her urine first of the year. She was referred at that time to her closest urologist. She is on Eliquis for A-fib. She at one point even had enough bleeding that she had clots and had difficulty urinating. 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 She is seen today in consultation to discuss treatment options. She has previously met with medical oncology to go over the 3 available options. Since her transurethral resection she has had no additional bleeding. A subsequent CT of her abdomen and pelvis showed a large bladder mass towards the left apex measuring 1.5 x 5.6 cm in size there was additional enhancement along the right lateral border. It was felt that the bladder was in close proximity to the sigmoid colon and that there may be soft tissue infiltration through the wall. No other metastatic or other disease was noted. Current Medications: Last Reconciled 12/05/24 by Binu Dickey amlodipine 5 mg PO DAILY aspirin 81 mg PO DAILY bupropion HCl XL 150 mg PO QAM cholecalciferol (vitamin D3) 125 mcg PO DAILY cyclobenzaprine 5 mg PO TID PRN ferrous sulfate (Iron (ferrous sulfate)) 325 mg PO DAILY fosfomycin tromethamine 3 grams PO DAILY gabapentin 300 mg PO .qpm hydrochlorothiazide 12.5 mg PO DAILY lorazepam 0.5 mg PO DAILY PRN magnesium 200 mg PO DAILY pantoprazole TAKE ONE TABLET BY MOUTH DAILY phenazopyridine (Pyridium) 200 mg PO Q8H PRN 9 doses vitamin K23-cwwgb acid 2,500-400 mcg 1 tab PO DAILY Allergies: No Known Allergies Medical History: Bladder mass on CT 10/17--to have cystoscopy by [facility]rology [facility] Home Hematuria due to chronic cystitis CT shows bladder mass; [facility] to do cystoscopy 11.09.23 Major depressive disorder, recurrent, moderate Interstitial cystitis dx per urologist Dr. Monahan Hx of breast cancer Left breast lumpectomy only; 2002 Paroxysmal atrial fibrillation with RVR stopping eliquis .12.19 b/c hematuria and has bladder mass--getting cystoscopy oct 2024 [facility]; putting on asa Anxiety Restless leg Essential hypertension Insomnia Hemorrhoids Hyperlipidemia GERD (gastroesophageal reflux disease) Colon polyp Diverticulosis Surgical History: History of bilateral cataract extraction Hx of BSO (bilateral salpingo-oophorectomy) cysts Hx of shoulder surgery Right Hx of hysterectomy no cancer Hx of breast lump removal left breast lumpectomy; for breast cancer History of colonoscopy 2004 Family History: Mother Dementia Father Cerebral hemorrhage Grandmother Cancer Brother Stroke Denies family history of Anesthesia complication Bleeding disorder Social History: Smoking and tobacco/nicotine status: former use of tobacco/nicotine Quit status (tobacco/nicotine): has quit using Year quit tobacco: Second hand smoke exposure: No Alcohol intake: never Substance/Drug Use: never Adopted: No Caregiver/support person: No Lives independently: Yes Housing: Apartment Marital status: / Number of children: 3 Current occupational status: retired Current occupation: [employer] --worked in [employer] Dietary Habits Caffeine: Yes Caffeine intake frequency: coffee Number of coffee servings: 2 Current Complaints / Review of Systems: . Vital Signs: Performed on 12/05/2024 9:17 AM BMI - 30.382 kg/m2 (high), Height - 64 in, Weight - 177 lbs, Temperature - 97.4 f, Pulse - 73 /min, Respiration - 17 /min, O2 Sat - 95 % (low), Pain - 0, Fatigue - 0 and BP - 128/ 78 mm(hg). Physical Exam: General: Patient is in no apparent distress today. She is companied by her daughter HEENT: Normocephalic atraumatic. Pupils equal, sclera clear, extraocular muscles intact Pulmonary: Respiratory rate is regular nonlabored Cardiovascular: Irregular rate and rhythm Abdomen: Mildly protuberant and android pattern Extremities: Without obvious edema or lymphedema Neurological: Alert and orient x 3. Gait and speech within normal limits Psych: Affect appropriate for current situation Performance Status: 90 Pathology: Impression: Muscle invading high-grade urothelial carcinoma the bladder Plan: I reviewed with the patient the various treatment options. We talked about the radiation as part of her treatment plan. We reviewed the simulation process and the risks and side effects both acute and long-term. We talked about how typically with the radiation we will use a low-dose of chemotherapy. Her other options were to proceed with possible surgical intervention or chemotherapy/immunotherapy only. After answering all of her questions she has at this point elected to proceed with a combined therapy. We talked about how at any point we can always stop her treatment if she should wish to not proceed. She verbalized understanding of this. Will proceed with getting her port placed and simulation scheduled so that would begin her treatments in the next 2 to 3 weeks since its been approximately 4 weeks since her surgery. Signed by: 12/06/2024 8:53:06 AM <<Signature on File>> Time spent on patient: 45 CPT Code: * CPT Code: *
== END 2024-12-22 23:59 | disposition home or self-care (01) ==
PROVIDERS: PCP Family Medicine; Visit Provider Radiology Radiation Oncology
DX: Z51.0 Encounter for antineoplastic radiation therapy (principal); C67.8 Malignant neoplasm of overlapping sites of bladder
CPT/HCPCS: 77300; 77301; 77334; 77338; 77470; 99205

== ENCOUNTER → 2024-12-26 08:48 | Outpatient (BNVA) | payer MEDICARE, SELFPAY | PROVIDERS: PCP Family Medicine; Visit Provider Surgery | DX: Z95.828 Presence of other vascular implants and grafts (principal) | CPT/HCPCS: 99204 ==

== ENCOUNTER 2025-01-01 11:00 | Day surgery (SDC) | payer MEDICARE, SELFPAY ==
[2025-01-01] VITALS (8 sets, daily range): BP systolic 140–167; BP diastolic 58–96; PULSE 82–113; RESP 16–18; TEMP 36.2–36.6; O2SAT 94–97; BMI 30.7
--- NOTE | 2025-01-01 11:10 | SC_ITS ---
WS: [id number] C-ARM RADIOGRAPHS CHEST; 2 IMAGES HISTORY: for Port COMPARISON: None available. Intraoperative imaging during Mediport placement. Tip of the Mediport near the cavoatrial junction. SC/C-arm FL for CVA 32749 IMPRESSION: Intraoperative imaging during RIGHT sided Mediport placement.
--- NOTE | 2025-01-01 11:26 | ANES.PREANE2 ---
Pre-Anesthetic Assessment Height/Weight: Height 1.63 m Weight 81.193 kg Temp Pulse Resp BP Pulse Ox O2 Del Method 97.7 F 113 H 16 167/96 95 Room Air 01/01/25 11:17 01/01/25 11:17 01/01/25 11:17 01/01/25 11:17 01/01/25 11:17 01/01/25 11:17 Operation Date: 01/01/25 12:45 Proposed Procedures p Portacath Placement 95123 C67.9 Z95.828(Not Applicable) - Juan F Leblanc MD Familial anesthetic complications: NOne Was Beta Tristin taken within 24 hours: N/A Was Clonidine taken within 24 hours: N/A Last intake: Intake Last Liquid Date 12/31/24 Last Liquid Time 20:00 Last Solid Date 12/31/24 Last Solid Time 19:30 Social No alcohol and No tobacco Exam alert, oriented x 3, clear to auscultation bilaterally and regular rate & rhythm Airway Mallampati: Class I Dentition: false CV/HEM Atrial Fibrillation and Hypertension GI Gastroesophageal Reflux Disease Anesthetic Plan ASA status: 3 Risk of > 500 ml blood loss (7ml/kg in children): No Medications/Allergies Home Medications ?Medication ?Instructions ?Recorded ?Confirmed ?Last Taken ?Type cholecalciferol (vitamin D3) 125 125 mcg PO DAILY 04/08/20 12/28/24 12/28/24 History mcg (5,000 unit) capsule cyclobenzaprine 5 mg tablet 5 mg PO TID PRN Spasms #60 tabs 01/04/24 12/28/24 12/28/24 Rx vitamin B12 2,500 mcg-folic acid 1 tab PO DAILY 03/10/24 12/28/24 12/28/24 History 400 mcg disintegrating tablet hydrochlorothiazide 12.5 mg tablet 12.5 mg PO DAILY #30 tabs 05/18/24 12/28/24 12/28/24 Rx amlodipine 5 mg tablet 5 mg PO DAILY 06/08/24 12/28/24 12/28/24 History phenazopyridine 200 mg tablet 200 mg PO Q8H PRN pain 9 doses #9 07/07/24 12/28/24 10/26/24 Rx (Pyridium) tabs bupropion HCl 150 mg 24 hr tablet, 150 mg PO QAM #90 tabs 09/25/24 12/28/24 12/28/24 Rx extended release aspirin 81 mg tablet,delayed 81 mg PO DAILY #1 tab 10/26/24 12/28/24 12/28/24 Rx release gabapentin 300 mg capsule 300 mg PO .qpm #30 caps 10/26/24 12/28/24 12/28/24 Rx ferrous sulfate 325 mg (65 mg 325 mg PO DAILY 10/28/24 12/28/24 12/28/24 History iron) tablet (Iron (ferrous sulfate)) ibuprofen 200 mg capsule 200 mg PO Q6H PRN pain #30 caps 12/11/24 12/28/24 12/28/24 Rx magnesium 200 mg tablet 400 mg PO DAILY 12/11/24 12/28/24 12/28/24 History pantoprazole 40 mg tablet,delayed 40 mg PO DAILY 12/28/24 12/28/24 12/28/24 History release lorazepam 0.5 mg tablet 0.5 mg PO DAILY PRN anxiety, 12/29/24 Unknown Rx insomnia #30 tabs Allergies Allergy/AdvReac Type Severity Reaction Status Date / Time No Known Allergies Allergy Verified 12/26/24 09:00 [facility] Anesthesia Medical History Bladder mass on CT 10/17--to have cystoscopy by urology [facility] Home Hematuria due to chronic cystitis CT shows bladder mass; [facility] to do cystoscopy 11.09.23 Major depressive disorder, recurrent, moderate Interstitial cystitis dx per urologist Dr. Monahan Hx of breast cancer Left breast lumpectomy only; 2002 Paroxysmal atrial fibrillation with RVR stopping eliquis 1.2.25 b/c hematuria and has bladder mass--getting cystoscopy oct 2024 [facility]; putting on asa Anxiety Restless leg Essential hypertension Insomnia Hemorrhoids Hyperlipidemia GERD (gastroesophageal reflux disease) Colon polyp Diverticulosis Surgical History History of bilateral cataract extraction Hx of BSO (bilateral salpingo-oophorectomy) cysts Hx of shoulder surgery Right Hx of hysterectomy no cancer Hx of breast lump removal left breast lumpectomy; for breast cancer History of colonoscopy 2004 Family History Mother Dementia Father Cerebral hemorrhage Grandmother Cancer Brother Stroke Denies family history of Anesthesia complication Bleeding disorder Social History Smoking and tobacco/nicotine status: former use of tobacco/nicotine Quit status (tobacco/nicotine): has quit using Year quit tobacco: 1990s Second hand smoke exposure: No Alcohol intake: never Substance/Drug Use: never Adopted: No Caregiver/support person: No Lives independently: Yes Housing: Apartment Marital status: / Number of children: 3 Current occupational status: retired Current occupation: [employer] --worked in [employer] Anesthesia Cardiac Studies: Echocardiogram 03/11/24
[2025-01-01] MEDS: sodium chloride 0.9% 1,000 ML 30 ML IV (11:35)
--- NOTE | 2025-01-01 11:57 | W.PM.OPSUD ---
Surgery/Procedure H&P Update DATE OF PROCEDURE: January 01, 2025 DATE H&P PERFORMED: 12/26/24 H&P UPDATE INFORMATION: I have reviewed H&P completed within last 30 days, I have examined patient prior to procedure, No changes to prior documentation and H&P is in [facility] EMR on date indicated PLANNED PROCEDURE: Operation Date: 01/01/25 12:45 Proposed Procedures p Portacath Placement 27023 C67.9 Z95.828(Not Applicable) - Juan F Leblanc MD
[2025-01-01] MEDS: ceFAZolin 2,000 mg SDV 2000 MG IVP (12:15)
[2025-01-01] MEDS: heparin, porcine 1,000 unit/mL INJ 10 mL 10000 UNIT IRRIGATION (12:44)
[2025-01-01] MEDS: lidocaine-epi 1% 20 mL INJ INJECTION (12:45)
--- NOTE | 2025-01-01 13:12 | PM.OP ---
Operative Report Date of procedure: January 01, 2025 Pre-op diagnosis: Bladder cancer Post-op diagnosis: Same Post-op findings: Normal vascular anatomy of the neck Procedure done: Insertion of right IJ Port-A-Cath Implants: Bard Port-A-Cath Surgeon: Juan F Leblanc MD Assembly Machine Offbearer: [facility] OR staff Estimated blood loss: 5 Brief History: 84-year-old female with bladder cancer who will require chemotherapy. We decided to proceed with Port-A-Cath placement. All risk and benefits of the procedure were documented in the chart and discussed with the patient. Procedure: Patient was brought into the OR, she was placed in a supine position, moderate anesthesia sedation was given. Timeout was conducted after the skin was prepped and draped in the usual sterile fashion. I then proceeded to identify the right IJ vein with ultrasound, I infiltrated local anesthesia on top of the vein. I then proceeded to cannulate the vein under direct ultrasound guidance using an 18-gauge needle, the needle tip was seen entering the vein and immediate return of blood was noted. A wire was advanced through the needle and the needle was removed. The position of the wire was verified with ultrasound and fluoroscopy. The wire was then fixed to the drapes. I then placed my attention to the chest, local anesthesia was infiltrated in the previously marked area on the chest and then a tract connecting the chest to the wire insertion site in the neck. I then proceeded to make a 3.5 cm incision in the right upper chest, the incision was deepened to subcutaneous tissue with electrocautery and electrocautery was used to create the subcutaneous pocket to house the Port-A-Cath. I then proceeded to use a hemostat to create a tunnel from the chest wound to the neck. I then proceeded to make a 0.5 cm incision at the level of the wire insertion site in the neck. Hemostasis was verified. I then placed the Port-A-Cath in the pocket and tunneled the catheter using the provided tunneler. The catheter was cut to appropriate length under fluoroscopy guidance and then flushed. I then proceeded to insert an introducer with a peel-off sheath over the wire under direct fluoroscopic guidance. I then remove the wire and the introducer leaving the peel-off sheath in place. The catheter was then advanced through the peel-off sheath and the peel-off sheath was removed leaving the catheter in place. Fluoroscopy showed evidence of Adequate catheter position. I then proceeded to access the port; the port was retrieving blood and flushing fine, I then hep-locked the catheter. Hemostasis was verified. The wound was closed in layers using #3-0 Vicryl for the subcutaneous tissue and #4 Monocryl for the skin. Dermabond was applied. At the end of the procedure all counts were correct. The patient tolerated well the procedure and was transferred to the PACU in stable condition.
[2025-01-01] MEDS: meperidine 50 mg/mL INJ 12.5 MG IVP (13:44)
--- NOTE | 2025-01-01 14:10 | ANE.PACU2 ---
Inpatient post-anesthesia follow up: Airway intact: Yes Vital signs: Temperature 98 F Pulse Rate 83 Respiratory Rate 17 Blood Pressure 152/58 Pulse Oximetry 96 Oxygen Delivery Me thod Room Air Oxygen Flow Rate Fraction of Inspir ed Oxygen Hydration adequate: Yes Nausea and vomiting: No Pain level: 1 Mental status: Baseline
== END 2025-01-01 14:10 | disposition home or self-care (01) ==
PROVIDERS: PCP Family Medicine; Visit Provider Surgery
PROC: (CPT 36561; principal; 2025-01-01 12:35)
DX: C67.9 Malignant neoplasm of bladder, unspecified (principal); I10 Essential (primary) hypertension; I48.0 Paroxysmal atrial fibrillation; K21.9 Gastro-esophageal reflux disease without esophagitis; Z79.899 Other long term (current) drug therapy; Z79.82 Long term (current) use of aspirin; Z85.3 Personal history of malignant neoplasm of breast; E78.5 Hyperlipidemia, unspecified; Z90.710 Acquired absence of both cervix and uterus; Z87.891 Personal history of nicotine dependence
CPT/HCPCS: 36561; 76000; 77001; C1788; J0690; J1644; J2175; J2704; J3010; J7030

== ENCOUNTER 2025-01-15 12:00 | Oncology outpatient (recurring) (ONCR) | payer MEDICARE, SELFPAY ==
[2025-01-08 10:37] LABS: Basophils # 0.1 10^3/uL (0.0-0.1); Eosinophils % 0.6 %; Hematocrit 35.3 % (36-47); Lymphocytes # 1.3 10^3/uL (0.8-4.8); Lymphocytes % 26.6 %; Mean Corpuscular Hemoglobin 27.4 pg (27-33); Mean Corpuscular Volume 85.5 fl (85-98); Mean Platelet Volume 9.5 fL (7.4-10.4); Monocytes # 0.3 10^3/uL (0.2-0.9); Monocytes % 5.2 %; Neutrophils # 3.35 10^3/uL (1.8-7.7); Neutrophils % 66.4 %; Nucleated Red Blood Cells % 0 %; Platelet Count 324 10^3/cmm (157-399); Red Blood Count 4.13 10^6/uL (3.85-5.65); Red Cell Distribution Width 14.8 % (12.1-15.1); White Blood Count 5.04 10^3/uL (3.29-11.43)
[2025-01-08 10:57] LABS: Alanine Aminotransferase 12 U/L (0-33); Alkaline Phosphatase 73 U/L (35-105); Anion Gap 13.2 (5-19); Aspartate Amino Transferase 14 U/L (0-32); Blood Urea Nitrogen 18 mg/dL (8-23); Carbon Dioxide 25 mmol/L (22-29); Chloride 108 mmol/L (98-107); Glucose 115 mg/dL (65-115); Osmolality Calculated 297 mOsm/kg (285-295); Potassium 4.2 mmol/L (3.5-5.1); Sodium 142 mmol/L (136-145); Total Bilirubin 0.4 mg/dL (0.15-1.2)
[2025-01-09] MEDS: magnesium sulfate premix 2 GM/50 ML PIGGYBACK IV (10:22)
[2025-01-09] MEDS: sodium chlor 0.9% + KCl 20 mEq 20 MEQ/1,000 ML BAG 775 MEQ IV (10:22)
--- NOTE | 2025-01-09 10:27 | ONCRAD TMN_ITS ---
Radiation Oncology Weekly Treatment Management Patient: René Frausto)> MR#: [id number] : 1940> Attending Physician: Dr. Caron Lassiter Date of Service: 01/09/2025 Fractions: 1 out of 30 Referring Physician(s) : Diagnosis: C67.9 - Malignant neoplasm of bladder, unspecified, Diagnosed 12/05/2024 (Active) Radiotherapy to date: Course: bladder, Treatment Site: Bladder 2024, Ref. ID: [id number], Energy: 6X, Dose/Fx (cGy): 200, #Fx: , Dose Correction (cGy): 0, Total Dose Delivered (cGy): 400, Start Date: 01/08/2025, Elapsed Days: 1 Reason for visit: The patient is being seen today as part of their regularly scheduled weekly on treatment visits to assess for acute toxicities from radiotherapy. Review of Systems: Patient apparently had loose stools after her treatment yesterday. This only happened 1 time. Vital Signs: Performed on 01/09/2025 8:02 AM BMI - 29.953 kg/m2 (high), Height - 64 in, Weight - 174.5 lbs, Temperature - 97.5 f, Pulse - 78 /min, Respiration - 17 /min, O2 Sat - 96 %, Pain - 0, Fatigue - 0 and BP - 151/ 74 mm(hg)(high/). Physical Exam: No changes on exam. Patient is currently receiving chemotherapy Imaging: Radiation therapy imaging related to accurate target localization (i.e. KV, MV and CBCT) was reviewed. Appropriate changes, if any, were made to ensure treatment accuracy. Plan: This point we will continue with her treatments as planned. I have asked her to use Imodium if she should have the loose stools again. We did talk about how the diarrhea with radiation can be very sensitive to Imodium. We also talked about being very unlikely to have diarrhea after the first treatment but she may be sensitive. Will have to keep an eye on whether she has additional bowel issues Signed by: Dr. Caron Lasister 01/09/2025 10:26:15 AM
[2025-01-09] MEDS: aprepitant 130 mg/18 ml SDV IVP (12:05)
[2025-01-09] MEDS: sodium chloride 0.9% 250 ML 75 ML IV (12:05)
[2025-01-09] MEDS: OLANZapine 5 mg TABLET PO (12:07)
[2025-01-09] MEDS: dexamethasone 4 mg/mL INJ 12 MG IVP (12:08)
[2025-01-09] MEDS: palonosetron 0.25 mg/5 mL SDV IVP (12:10)
[2025-01-09] MEDS: diphenhydrAMINE 50 mg/mL SDV 1mL 25 MG IVP (12:12)
[2025-01-09] MEDS: famotidine 20 mg/2 mL INJ IVP (12:13)
[2025-01-09] MEDS: FUROsemide 10 mg/mL SDV 2mL 20 MG IVP (14:36)
[2025-01-09] MEDS: potassium chloride 20 MEQ in sodium chloride 0.9% 500 ML 500 MEQ IV (14:40)
[2025-01-09 16:06] VITALS: BP 154/81; PULSE 95; RESP 17; TEMP 36.1; O2SAT 94
== END 2025-01-22 23:59 | disposition home or self-care (01) ==
LOC: RAD 01-16 → ONCMED 01-16 14:09
PROVIDERS: Nurse Practitioner Family; Absent Provider Radiology Radiation Oncology; PCP Family Medicine; Visit Provider Internal Medicine Cardiovascular Disease
DX: Z53.9 Procedure and treatment not carried out, unspecified reason; C67.8 Malignant neoplasm of overlapping sites of bladder; Z87.891 Personal history of nicotine dependence; Z79.899 Other long term (current) drug therapy
CPT/HCPCS: 36591; 77336; 77386; 80053; 85025; 96361; 96367; 96375; 96413; 99024; 99214; 99215; J0185; J1100; J1200; J1940; J2469; J3475; J3480; J3490; J7040; J7050; J9060; J9999

== ENCOUNTER → 2025-01-17 13:01 | Outpatient (BNVA) | payer MEDICARE, SELFPAY | PROVIDERS: PCP Family Medicine; Visit Provider Surgery | DX: N32.89 Other specified disorders of bladder (principal) | CPT/HCPCS: 99213 ==

== ENCOUNTER 2025-02-13 07:59 | Oncology outpatient (recurring) (ONCR) | payer MEDICARE, SELFPAY ==
--- NOTE | 2025-01-24 14:13 | ONCRAD TMN_ITS ---
Radiation Oncology Weekly Treatment Management Patient: René Del Real MR#: [id number] : 1940> Attending Physician: Dr. Caron Lassiter Date of Service: 01/24/2025 Referring Physician(s) Diagnosis: C67.9 - Malignant neoplasm of bladder, unspecified, Diagnosed 12/05/2024 (Active) Radiotherapy to date: Course: bladder, Treatment Site: Bladder 2024, Ref. ID: [id number], Energy: 6X, Dose/Fx (cGy): 200, #Fx: , Dose Correction (cGy): 0, Total Dose Delivered (cGy): 1,000, Start Date: 01/08/2025, Elapsed Days: 4 Reason for visit: Patient's daughter requested appointment today. Apparently they saw the surgical team at [facility]. The surgical team really thought the surgery might be the best option for her. They told her she could have severe and significant consequences if she had radiation. The daughter says they described how the cancer would eat through the bladder and into the bowel if she had radiation. Her mom has become hesitant to proceed with any treatment but is already having bleeding, clots and pain again. I reviewed with them daughter the risks and side effects of the radiation. We talked about how the radiation does not cause the bladder cancer to eat through the bladder wall and into the small bowel or any bowel. We reviewed the risks and side effects as well as the potential consequences for not proceeding with any treatment at this point with increased bleeding and pain. I have recommended if they decide not to have anything done she needs to be signed up with hospice as soon as possible. The daughter will talk to her mom and I will be happy to see them again at any time. I really do feel like this treatment would be fairly nontoxic and it could give her good quality of life down the road. Signed by: Dr. Caron Lassiter 01/24/2025 2:11:42 PM
[2025-01-29 11:34] LABS: Basophils % 0.6 %; Eosinophils % 0.6 %; Hematocrit 36.3 % (36-47); Lymphocytes % 20.1 %; Mean Corpuscular HGB Conc 32.5 g/dL (30-55); Mean Corpuscular Hemoglobin 27.6 pg (27-33); Mean Corpuscular Volume 84.8 fl (85-98); Mean Platelet Volume 9.2 fL (7.4-10.4); Monocytes # 0.4 10^3/uL (0.2-0.9); Monocytes % 6.8 %; Neutrophils % 71.3 %; Nucleated Red Blood Cells % 0 %; Platelet Count 276 10^3/cmm (157-399); Red Blood Count 4.28 10^6/uL (3.85-5.65); Red Cell Distribution Width 15.9 % (12.1-15.1); White Blood Count 5.18 10^3/uL (3.29-11.43)
[2025-01-29 11:49] LABS: Alanine Aminotransferase 18 U/L (0-33); Albumin Level 4.3 g/dL (3.5-5.2); Alkaline Phosphatase 81 U/L (35-105); Anion Gap 14.5 (5-19); Aspartate Amino Transferase 17 U/L (0-32); Blood Urea Nitrogen 22 mg/dL (8-23); Calcium 9.6 mg/dL (8.5-10.5); Carbon Dioxide 23 mmol/L (22-29); Chloride 106 mmol/L (98-107); Creatinine Clr Calc Pharmacy 41.5732; Globulin 2.7 g/dL (1.3-4.6); Glucose 100 mg/dL (65-115); Osmolality Calculated 291 mOsm/kg (285-295); Potassium 4.5 mmol/L (3.5-5.1); Sodium 139 mmol/L (136-145); Total Bilirubin 0.4 mg/dL (0.15-1.2)
--- NOTE | 2025-01-30 10:09 | ONCRAD TMN_ITS ---
Radiation Oncology Weekly Treatment Management Patient: Carol Merritt ([place]) MR#: [id number] : 1940 Attending Physician: Dr. Irvin Osei Date of Service: 01/30/2025 Referring Physician(s) : Dr. Roman Diagnosis: C67.9 - Malignant neoplasm of bladder, unspecified, Diagnosed 12/05/2024 (Active) Radiotherapy to date: Course: bladder, Treatment Site: Bladder 2024, Ref. ID: [id number], Energy: 6X, Dose/Fx (cGy): 200, #Fx: 30, Dose Correction (cGy): 0, Total Dose Delivered (cGy): 1,400, Start Date: 01/08/2025, Elapsed Days: 22 Reason for visit: The patient is being seen today as part of their regularly scheduled weekly on treatment visits to assess for acute toxicities from radiotherapy. Review of Systems: Recently seen by urologist to discuss cystectomy . Extent of surgery and rehab needed post op made her decline surgery. Now returning to complete bladder sparing treatment. She tripped over uneven surface from sidewalk to grass. Some elbow pain . Not interested in any X ray image. Urination improved with better flow. Stable 4 to 5 x nocturia. No pain. Not interested in bladder anti spasmotic treatment. Bowels ok. Usually once a day. Vital Signs: Performed on 01/30/2025 9:04 AM BMI - 29.249 kg/m2 (high), Height - 64 in, Weight - 170.4 lbs, Temperature - 97.0 f, Pulse - 97 /min, Respiration - 16 /min, O2 Sat - 96 %, Pain - 0, Fatigue - 0 and BP - 172/ 97 mm(hg)(high). Physical Exam: Imaging: Radiation therapy imaging related to accurate target localization (i.e. KV, MV and CBCT) was reviewed. Appropriate changes, if any, were made to ensure treatment accuracy. Plan: Good tolerance of treatment. Chemo today. Elevated BP noted and will be followed by med onc. Discussed need to minimize fall risk. Continue treatment as planned. Signed by: Dr. Irvin Osei 01/30/2025 10:08:06 AM
[2025-01-30] MEDS: sodium chlor 0.9% + KCl 20 mEq 20 MEQ/1,000 ML BAG 750 MEQ IV (10:20)
[2025-01-30] MEDS: magnesium sulfate premix 2 GM/50 ML PIGGYBACK IV (10:20)
[2025-01-30] MEDS: sodium chloride 0.9% 250 ML 75 ML IV (10:27)
[2025-01-30] MEDS: aprepitant 130 mg/18 ml SDV IVP (11:45)
[2025-01-30] MEDS: dexamethasone 4 mg/mL INJ 12 MG IVP (11:47)
[2025-01-30] MEDS: diphenhydrAMINE 50 mg/mL SDV 1mL 25 MG IVP (11:49)
[2025-01-30] MEDS: famotidine 20 mg/2 mL INJ IVP (11:50)
[2025-01-30] MEDS: palonosetron 0.25 mg/5 mL SDV IVP (11:51)
[2025-01-30] MEDS: OLANZapine 5 mg TABLET PO (11:52)
[2025-01-30] MEDS: FUROsemide 10 mg/mL SDV 2mL 20 MG IVP (13:35)
[2025-01-30] MEDS: potassium chloride 20 MEQ in sodium chloride 0.9% 500 ML 500 MEQ IV (13:40)
[2025-01-30 14:51] VITALS: BP 128/71; PULSE 97; RESP 16; TEMP 36.6; O2SAT 94
[2025-02-06 08:10] LABS: Basophils % 0.5 %; Eosinophils # 0.1 10^3/uL (0.0-0.8); Eosinophils % 1.3 %; Hematocrit 37.5 % (36-47); Lymphocytes # 1.3 10^3/uL (0.8-4.8); Lymphocytes % 20.8 %; Mean Corpuscular HGB Conc 32.5 g/dL (30-55); Mean Corpuscular Hemoglobin 27.9 pg (27-33); Mean Corpuscular Volume 85.8 fl (85-98); Mean Platelet Volume 9.1 fL (7.4-10.4); Monocytes # 0.6 10^3/uL (0.2-0.9); Monocytes % 9.1 %; Neutrophils # 4.13 10^3/uL (1.8-7.7); Neutrophils % 67.2 %; Nucleated Red Blood Cells % 0 %; Platelet Count 274 10^3/cmm (157-399); Red Blood Count 4.37 10^6/uL (3.85-5.65); Red Cell Distribution Width 16.2 % (12.1-15.1); White Blood Count 6.15 10^3/uL (3.29-11.43)
[2025-02-06 08:27] LABS: Alanine Aminotransferase 20 U/L (0-33); Albumin Level 4.1 g/dL (3.5-5.2); Alkaline Phosphatase 91 U/L (35-105); Anion Gap 16.8 (5-19); Aspartate Amino Transferase 21 U/L (0-32); Blood Urea Nitrogen 33 mg/dL (8-23); Calcium 9.1 mg/dL (8.5-10.5); Carbon Dioxide 23 mmol/L (22-29); Chloride 104 mmol/L (98-107); Creatinine Clr Calc Pharmacy 31.9794; Globulin 2.8 g/dL (1.3-4.6); Glucose 109 mg/dL (65-115); Osmolality Calculated 296 mOsm/kg (285-295); Potassium 4.8 mmol/L (3.5-5.1); Sodium 139 mmol/L (136-145); Total Bilirubin 0.2 mg/dL (0.15-1.2); Total Protein 6.9 g/dL (6.6-8.7)
[2025-02-06] MEDS: magnesium sulfate premix 2 GM/50 ML PIGGYBACK IV (08:36)
[2025-02-06] MEDS: sodium chlor 0.9% + KCl 20 mEq 20 MEQ/1,000 ML BAG 500 MEQ IV (08:36)
[2025-02-06 08:42] VITALS: BP 130/78; PULSE 94; RESP 16; TEMP 36.6; O2SAT 96
--- NOTE | 2025-02-06 09:21 | ONCRAD TMN_ITS ---
Radiation Oncology Weekly Treatment Management Patient: René Del Real MR#: [id number] : 1940> Attending Physician: Alfonso Fontana Date of Service: 02/06/2025 Referring Physician(s) : Diagnosis: C67.9 - Malignant neoplasm of bladder, unspecified, Diagnosed 12/05/2024 (Active) Radiotherapy to date: Course: bladder, Treatment Site: Bladder 2024, Ref. ID: [id number], Energy: 6X, Dose/Fx (cGy): 200, #Fx: , Dose Correction (cGy): 0, Total Dose Delivered (cGy): 2,200, Start Date: 01/08/2025, Elapsed Days: 29 Reason for visit: The patient is being seen today as part of their regularly scheduled weekly on treatment visits to assess for acute toxicities from radiotherapy. Review of Systems: 2 fractions so far and voices no problems. She states she is voiding easily. No blood in the urine noted. Chemotherapy scheduled today. Labs are adequate for treatment. Vital Signs: Performed on 02/06/2025 8:57 AM BMI - 29.215 kg/m2 (high), Height - 64 in, Weight - 170.2 lbs, Temperature - 97.9 f, Pulse - 94 /min, Respiration - 16 /min, O2 Sat - 96 %, Pain - 0, Fatigue - 0 and BP - 130/ 78 mm(hg). Physical Exam: AAOX3. No abdominal discomfort Imaging: Radiation therapy imaging related to accurate target localization (i.e. KV, MV and CBCT) was reviewed. Appropriate changes, if any, were made to ensure treatment accuracy. Plan: Continue XRT Continue chemotherapy today Signed by: Alfonso Fontana 02/06/2025 9:19:16 AM
[2025-02-06] MEDS: sodium chloride 0.9% 250 ML 75 ML IV (10:53)
[2025-02-06] MEDS: aprepitant 130 mg/18 ml SDV IVP (10:56)
[2025-02-06] MEDS: dexamethasone 4 mg/mL INJ 12 MG IVP (11:00)
[2025-02-06] MEDS: palonosetron 0.25 mg/5 mL SDV IVP (11:03)
[2025-02-06] MEDS: famotidine 20 mg/2 mL INJ IVP (11:06)
[2025-02-06] MEDS: diphenhydrAMINE 50 mg/mL SDV 1mL 25 MG IVP (11:09)
[2025-02-06] MEDS: OLANZapine 5 mg TABLET PO (11:12)
[2025-02-06] MEDS: FUROsemide 10 mg/mL SDV 2mL 20 MG IVP (13:15)
[2025-02-06] MEDS: potassium chloride 20 MEQ in sodium chloride 0.9% 500 ML 500 MEQ IV (13:16)
[2025-02-06 14:30] VITALS: BP 133/75; PULSE 98; RESP 16; TEMP 36.6; O2SAT 95
[2025-02-12 09:09] LABS: Basophils % 0.3 %; Eosinophils % 0.3 %; Hematocrit 37.9 % (36-47); Lymphocytes # 1.1 10^3/uL (0.8-4.8); Lymphocytes % 17.9 %; Mean Corpuscular HGB Conc 33.2 g/dL (30-55); Mean Corpuscular Hemoglobin 27.9 pg (27-33); Mean Platelet Volume 8.8 fL (7.4-10.4); Monocytes # 0.4 10^3/uL (0.2-0.9); Monocytes % 6.9 %; Neutrophils # 4.49 10^3/uL (1.8-7.7); Neutrophils % 74.3 %; Nucleated Red Blood Cells % 0 %; Platelet Count 243 10^3/cmm (157-399); Red Blood Count 4.51 10^6/uL (3.85-5.65); Red Cell Distribution Width 16.6 % (12.1-15.1); White Blood Count 6.05 10^3/uL (3.29-11.43)
[2025-02-12 09:27] LABS: Alanine Aminotransferase 19 U/L (0-33); Albumin Level 4.3 g/dL (3.5-5.2); Alkaline Phosphatase 94 U/L (35-105); Anion Gap 16.5 (5-19); Aspartate Amino Transferase 18 U/L (0-32); Blood Urea Nitrogen 17 mg/dL (8-23); Calcium 9.3 mg/dL (8.5-10.5); Carbon Dioxide 25 mmol/L (22-29); Chloride 100 mmol/L (98-107); Creatinine Clr Calc Pharmacy 46.1925; Globulin 2.8 g/dL (1.3-4.6); Glucose 104 mg/dL (65-115); Osmolality Calculated 286 mOsm/kg (285-295); Potassium 4.5 mmol/L (3.5-5.1); Sodium 137 mmol/L (136-145); Total Bilirubin 0.4 mg/dL (0.15-1.2); Total Protein 7.1 g/dL (6.6-8.7)
[2025-02-13] MEDS: magnesium sulfate premix 2 GM/50 ML PIGGYBACK IV ×2 (08:28→09:00)
[2025-02-13] MEDS: sodium chlor 0.9% + KCl 20 mEq 20 MEQ/1,000 ML BAG 500 MEQ IV (08:28)
--- NOTE | 2025-02-13 10:43 | ONCRAD TMN_ITS ---
Radiation Oncology Weekly Treatment Management Patient: Carol Merritt MR#: [id number] : 1940 Attending Physician: Dr. Irvin Osei Date of Service: 02/13/2025 Referring Physician(s) : Diagnosis: C67.9 - Malignant neoplasm of bladder, unspecified, Diagnosed 12/05/2024 (Active) Radiotherapy to date: Course: bladder, Treatment Site: Bladder 2024, Ref. ID: [id number], Energy: 6X, Dose/Fx (cGy): 200, #Fx: , Dose Correction (cGy): 0, Total Dose Delivered (cGy): 3,000, Start Date: 01/08/2025, Elapsed Days: 36 Reason for visit: The patient is being seen today as part of their regularly scheduled weekly on treatment visits to assess for acute toxicities from radiotherapy. Review of Systems: Urination improved. Pain and bleeding resolved. Eating ok. 2 x nocturia which is not bothersome. Bowels regular. No diarrhea. Eating ok. Vital Signs: Performed on 02/13/2025 9:05 AM BMI - 29.181 kg/m2 (high), Height - 64 in, Weight - 170 lbs, Temperature - 97.8 f, Pulse - 99 /min, Respiration - 17 /min, O2 Sat - 93 % (low), Pain - 0, Fatigue - 0 and BP - 150/ 73 mm(hg)(high/). Physical Exam: omitted Imaging: Radiation therapy imaging related to accurate target localization (i.e. KV, MV and CBCT) was reviewed. Appropriate changes, if any, were made to ensure treatment accuracy. Plan: good tolerance of treatment. Continue as planned. Signed by: Dr. Irvin Osei 02/13/2025 10:41:58 AM
[2025-02-13] MEDS: sodium chloride 0.9% 250 ML 75 ML IV (10:58)
[2025-02-13] MEDS: diphenhydrAMINE 50 mg/mL SDV 1mL 25 MG IVP (11:00)
[2025-02-13] MEDS: OLANZapine 5 mg TABLET PO (11:02)
[2025-02-13] MEDS: aprepitant 130 mg/18 ml SDV IVP (11:04)
[2025-02-13] MEDS: dexamethasone 4 mg/mL INJ 12 MG IVP (11:09)
[2025-02-13] MEDS: famotidine 20 mg/2 mL INJ IVP (11:15)
[2025-02-13] MEDS: palonosetron 0.25 mg/5 mL SDV IVP (11:17)
[2025-02-13] MEDS: FUROsemide 10 mg/mL SDV 2mL 20 MG IVP (12:52)
[2025-02-13] MEDS: potassium chloride 20 MEQ in sodium chloride 0.9% 500 ML 500 MEQ IV (12:53)
[2025-02-13 14:17] VITALS: BP 145/82; PULSE 102; RESP 17; TEMP 36.3; O2SAT 92
== END 2025-02-13 23:59 | disposition home or self-care (01) ==
PROVIDERS: Internal Medicine; Internal Medicine Medical Oncology; Nurse Practitioner Family; Absent Provider Radiology Radiation Oncology; Family Provider Family Medicine; PCP Family Medicine; Visit Provider Radiology Radiation Oncology
DX: Z51.0 Encounter for antineoplastic radiation therapy; Z51.11 Encounter for antineoplastic chemotherapy; C67.9 Malignant neoplasm of bladder, unspecified; Z95.828 Presence of other vascular implants and grafts; Z87.891 Personal history of nicotine dependence; K21.9 Gastro-esophageal reflux disease without esophagitis; Z79.630 Long term (current) use of alkylating agent; Z79.52 Long term (current) use of systemic steroids; Z53.9 Procedure and treatment not carried out, unspecified reason
CPT/HCPCS: 36591; 77336; 77386; 80053; 83735; 85025; 96360; 96361; 96367; 96375; 96413; 96417; 99024; 99213; 99214; J0185; J1100; J1200; J1940; J2469; J3475; J3480; J3490; J7040; J7050; J9060; J9999

== ENCOUNTER 2025-02-21 08:45 | Oncology outpatient (recurring) (ONCR) | payer MEDICARE, SELFPAY ==
[2025-02-19 08:59] LABS: Basophils % 0.4 %; Eosinophils % 0.2 %; Hematocrit 36.1 % (36-47); Lymphocytes # 0.9 10^3/uL (0.8-4.8); Mean Corpuscular HGB Conc 32.7 g/dL (30-55); Mean Corpuscular Hemoglobin 28.1 pg (27-33); Mean Platelet Volume 8.6 fL (7.4-10.4); Monocytes # 0.4 10^3/uL (0.2-0.9); Monocytes % 8.2 %; Neutrophils # 3.19 10^3/uL (1.8-7.7); Neutrophils % 70.8 %; Nucleated Red Blood Cells % 0 %; Platelet Count 234 10^3/cmm (157-399); Red Cell Distribution Width 17.2 % (12.1-15.1); White Blood Count 4.51 10^3/uL (3.29-11.43)
[2025-02-19 09:19] LABS: Alanine Aminotransferase 18 U/L (0-33); Alkaline Phosphatase 96 U/L (35-105); Anion Gap 14.5 (5-19); Aspartate Amino Transferase 16 U/L (0-32); Blood Urea Nitrogen 17 mg/dL (8-23); Carbon Dioxide 24 mmol/L (22-29); Chloride 103 mmol/L (98-107); Globulin 2.8 g/dL (1.3-4.6); Glucose 105 mg/dL (65-115); Osmolality Calculated 286 mOsm/kg (285-295); Potassium 4.5 mmol/L (3.5-5.1); Sodium 137 mmol/L (136-145); Total Bilirubin 0.3 mg/dL (0.15-1.2); Total Protein 6.8 g/dL (6.6-8.7)
[2025-02-20] MEDS: sodium chlor 0.9% + KCl 20 mEq 20 MEQ/1,000 ML BAG 500 MEQ IV (08:31)
[2025-02-20] MEDS: magnesium sulfate premix 2 GM/50 ML PIGGYBACK IV (08:33)
--- NOTE | 2025-02-20 09:07 | ONCRAD TMN_ITS ---
Radiation Oncology Weekly Treatment Management Patient: René Del Real MR#: [id number] : 1940> Attending Physician: Alfonso Fontana Date of Service: 02/20/2025 Referring Physician(s) : Diagnosis: C67.9 - Malignant neoplasm of bladder, unspecified, Diagnosed 12/05/2024 (Active) Radiotherapy to date: Course: bladder, Treatment Site: Bladder 2024, Ref. ID: [id number], Energy: 6X, Dose/Fx (cGy): 200, #Fx: 20 / 30, Dose Correction (cGy): 0, Total Dose Delivered (cGy): 4,000, Start Date: 01/08/2025, Elapsed Days: 43 Reason for visit: The patient is being seen today as part of their regularly scheduled weekly on treatment visits to assess for acute toxicities from radiotherapy. Review of Systems: Complained of decreased urinary volume. We did offer some techniques for increasing volume tolerance. Patient denies any blood in the urine or blood in the stool. Increase fluid volumes. Labs adequate for treatment. Vital Signs: Performed on 02/20/2025 8:31 AM BMI - 28.872 kg/m2 (high), Height - 64 in, Weight - 168.2 lbs, Temperature - 97.6 f, Pulse - 88 /min, Respiration - 18 /min, O2 Sat - 94 % (low), Pain - 7, Fatigue - 0 and BP - 177/ 88 mm(hg)(high/). Physical Exam: AAOx3. Skin intact Imaging: Radiation therapy imaging related to accurate target localization (i.e. KV, MV and CBCT) was reviewed. Appropriate changes, if any, were made to ensure treatment accuracy. Plan: Continue XRT. Continue weekly chemotherapy Signed by: Alfonos Fontana 02/20/2025 9:06:44 AM
[2025-02-20 09:17] VITALS: BP 155/68; PULSE 94; TEMP 36.3; O2SAT 95
[2025-02-20] MEDS: sodium chloride 0.9% 250 ML 75 ML IV (10:24)
[2025-02-20] MEDS: aprepitant 130 mg/18 ml SDV IVP (10:27)
[2025-02-20] MEDS: famotidine 20 mg/2 mL INJ IVP (10:34)
[2025-02-20] MEDS: dexamethasone 4 mg/mL INJ 12 MG IVP (10:38)
[2025-02-20] MEDS: OLANZapine 5 mg TABLET PO (10:42)
[2025-02-20] MEDS: palonosetron 0.25 mg/5 mL SDV IVP (10:46)
[2025-02-20] MEDS: diphenhydrAMINE 50 mg/mL SDV 1mL 25 MG IVP (10:50)
[2025-02-20] MEDS: CISPLATIN IV (11:34)
[2025-02-20] MEDS: SODIUM CHLORIDE 0.9% IV (11:34)
[2025-02-20] MEDS: FUROsemide 10 mg/mL SDV 2mL 20 MG IVP (13:20)
[2025-02-20] MEDS: potassium chloride 20 MEQ in sodium chloride 0.9% 500 ML 500 MEQ IV (13:34)
[2025-02-20 14:45] VITALS: BP 168/81; PULSE 99; RESP 16; TEMP 36.8; O2SAT 99
== END 2025-02-21 23:59 | disposition home or self-care (01) ==
PROVIDERS: Nurse Practitioner Family; Absent Provider Radiology Radiation Oncology; Family Provider Family Medicine; PCP Family Medicine; Visit Provider Radiology Radiation Oncology
DX: Z51.0 Encounter for antineoplastic radiation therapy (principal); C67.9 Malignant neoplasm of bladder, unspecified
CPT/HCPCS: 36591; 77336; 77386; 80053; 85025; 96367; 96375; 96413; 99024; 99214; J0185; J1100; J1200; J1940; J2469; J3475; J3480; J3490; J7040; J7050; J9060; J9999

== ENCOUNTER 2025-03-13 09:45 | Oncology outpatient (recurring) (ONCR) | payer MEDICARE, SELFPAY ==
--- NOTE | 2025-02-26 09:41 | ONCRAD TMN_ITS ---
0.Radiation Oncology Weekly Treatment Management Patient: René Del Real MR#: [id number] : 1940> Attending Physician: Alfonso Fontana Date of Service: 02/26/2025 Referring Physician(s) : Diagnosis: C67.9 - Malignant neoplasm of bladder, unspecified, Diagnosed 12/05/2024 (Active) Radiotherapy to date: Course: bladder, Treatment Site: Bladder 2024, Ref. ID: [id number] Energy: 6Xm Dose/Fx (cGy): 200m #Fx: 24 / 30m Dose Correction (cGy): 0, Total Dose Delivered (cGy): 4,800, Start Date: 01/08/2025, Elapsed Days: 49 Reason for visit: The patient is being seen today as part of their regularly scheduled weekly on treatment visits to assess for acute toxicities from radiotherapy. Review of Systems: Still complaining of some nausea and continues with concurrent chemoradiation. Vital Signs: Performed on 02/26/2025 9:04 AM BMI - 28.872 kg/m2 (high), Height - 64 in, Weight - 168.2 lbs, Temperature - 97.8 f, Pulse - 93 /min, Respiration - 17 /min, O2 Sat - 94 % (low), Pain - 0, Fatigue - 0 and BP - 154/ 89 mm(hg)(high/). Physical Exam: Will finish this week. Last chemo is tomorrow. She is getting labs this date. Labs are adequate so far for treatment. She continues with GI upset. [facility] has been helping. Imaging: Radiation therapy imaging related to accurate target localization (i.e. KV, MV and CBCT) was reviewed. Appropriate changes, if any, were made to ensure treatment accuracy. Plan: Continue XRT. Last chemo therapy is tomorrow. RTC in 1 month or sooner if need be. Signed by: Alfonso Fontana 02/26/2025 9:39:45 AM
[2025-02-26 09:48] LABS: Basophils % 0.2 %; Eosinophils % 0.2 %; Hematocrit 33.1 % (36-47); Lymphocytes # 0.7 10^3/uL (0.8-4.8); Mean Corpuscular HGB Conc 33.2 g/dL (30-55); Mean Corpuscular Hemoglobin 28.7 pg (27-33); Mean Corpuscular Volume 86.4 fl (85-98); Mean Platelet Volume 8.2 fL (7.4-10.4); Monocytes # 0.4 10^3/uL (0.2-0.9); Monocytes % 8.6 %; Neutrophils # 3.54 10^3/uL (1.8-7.7); Neutrophils % 75.8 %; Nucleated Red Blood Cells % 0 %; Platelet Count 188 10^3/cmm (157-399); Red Blood Count 3.83 10^6/uL (3.85-5.65); Red Cell Distribution Width 17.3 % (12.1-15.1); White Blood Count 4.67 10^3/uL (3.29-11.43)
[2025-02-26 10:11] LABS: Alanine Aminotransferase 16 U/L (0-33); Albumin Level 3.9 g/dL (3.5-5.2); Alkaline Phosphatase 77 U/L (35-105); Aspartate Amino Transferase 15 U/L (0-32); Blood Urea Nitrogen 11 mg/dL (8-23); Carbon Dioxide 23 mmol/L (22-29); Chloride 105 mmol/L (98-107); Globulin 2.5 g/dL (1.3-4.6); Glucose 97 mg/dL (65-115); Osmolality Calculated 291 mOsm/kg (285-295); Sodium 141 mmol/L (136-145); Total Bilirubin 0.3 mg/dL (0.15-1.2); Total Protein 6.4 g/dL (6.6-8.7)
[2025-02-27] MEDS: sodium chlor 0.9% + KCl 20 mEq 20 MEQ/1,000 ML BAG 500 MEQ IV (09:29)
[2025-02-27] MEDS: magnesium sulfate premix 2 GM/50 ML PIGGYBACK IV (09:31)
[2025-02-27] MEDS: diphenhydrAMINE 50 mg/mL SDV 1mL 25 MG IVP (11:45)
[2025-02-27] MEDS: OLANZapine 5 mg TABLET PO (11:45)
[2025-02-27] MEDS: sodium chloride 0.9% 250 ML 75 ML IV (11:45)
[2025-02-27] MEDS: dexamethasone 4 mg/mL INJ 12 MG IVP (11:46)
[2025-02-27] MEDS: palonosetron 0.25 mg/5 mL SDV IVP (11:46)
[2025-02-27] MEDS: famotidine 20 mg/2 mL INJ IVP (11:46)
[2025-02-27] MEDS: aprepitant 130 mg/18 ml SDV IVP (11:47)
[2025-02-27] MEDS: SODIUM CHLORIDE 0.9% IV (12:11)
[2025-02-27] MEDS: CISPLATIN IV (12:11)
[2025-02-27] MEDS: potassium chloride 20 MEQ in sodium chloride 0.9% 500 ML 500 MEQ IV (13:30)
[2025-02-27] MEDS: FUROsemide 10 mg/mL SDV 2mL 20 MG IVP (13:30)
[2025-02-27 14:50] VITALS: BP 177/76; PULSE 91; RESP 18; TEMP 36.6; O2SAT 93
--- NOTE | 2025-03-06 09:13 | N.ONRD TS_ITS ---
Radiation Oncology OTV/ Treatment Summary Patient: Carol Merritt, MR#: [id number] : 1940 Age: 84 Sex: Female Dictated by: Alfonso Fontana Date of Service: 03/06/2025 Referring Physician(s) : Diagnosis: C67.9 - Malignant neoplasm of bladder, unspecified, Diagnosed 12/05/2024 (Active) Radiotherapy to Date: Course: bladder, Treatment Site: Bladder 2024, Ref. ID: [id number], Energy: 6X, Dose/Fx (cGy): 200, #Fx: 30 / 30, Dose Correction (cGy): 0, Total Dose Delivered (cGy): 6,000, Start Date: 01/08/2025, End Date: 03/06/2025, Elapsed Days: 57 Vital Signs: Performed on 03/06/2025 8:55 AM BMI - 28.837 kg/m2 (high), Height - 64 in, Weight - 168 lbs, Temperature - 97 f, Pulse - 104 /min (high), Respiration - 16 /min, O2 Sat - 97 %, Pain - 0, Fatigue - 0 and BP - 176/ 99 mm(hg)(high). Clinical Summary: The patient tolerated RT well. Patient noted decreased volume when she would void. However at night she continued wetting her depends. Labs remained adequate throughout her treatment. Plan: End of treatment today. Continue on the above medication until the skin reaction resolves. Follow up in one month. Patient to see urologist on 04/02/2025. Next MO appointment is scheduled for 03/13/2025. Signed by: Alfonso Fontana>03/06/2025 9:11:57 AM <<Signature on File>>
[2025-03-13 09:45] LABS: Basophils % 0.7 %; Eosinophils % 0.7 %; Lymphocytes % 32.7 %; Mean Corpuscular HGB Conc 33.4 g/dL (30-55); Mean Corpuscular Volume 89.8 fl (85-98); Monocytes # 0.3 10^3/uL (0.2-0.9); Monocytes % 8.3 %; Neutrophils # 1.74 10^3/uL (1.8-7.7); Neutrophils % 57.3 %; Nucleated Red Blood Cells % 0 %; Platelet Count 200 10^3/cmm (157-399); Red Blood Count 3.23 10^6/uL (3.85-5.65); Red Cell Distribution Width 19.5 % (12.1-15.1); White Blood Count 3.03 10^3/uL (3.29-11.43)
[2025-03-13 10:01] LABS: Alanine Aminotransferase 13 U/L (0-33); Albumin Level 3.7 g/dL (3.5-5.2); Alkaline Phosphatase 87 U/L (35-105); Anion Gap 14.4 (5-19); Aspartate Amino Transferase 16 U/L (0-32); Blood Urea Nitrogen 13 mg/dL (8-23); Calcium 8.8 mg/dL (8.5-10.5); Carbon Dioxide 24 mmol/L (22-29); Chloride 105 mmol/L (98-107); Creatinine Clr Calc Pharmacy 45.7997; Globulin 2.6 g/dL (1.3-4.6); Glucose 98 mg/dL (65-115); Osmolality Calculated 288 mOsm/kg (285-295); Potassium 4.4 mmol/L (3.5-5.1); Sodium 139 mmol/L (136-145); Total Bilirubin 0.3 mg/dL (0.15-1.2); Total Protein 6.3 g/dL (6.6-8.7)
== END 2025-03-24 23:59 | disposition home or self-care (01) ==
PROVIDERS: Nurse Practitioner Family; Absent Provider Radiology Radiation Oncology; Family Provider Family Medicine; PCP Family Medicine; Visit Provider Internal Medicine Medical Oncology
DX: Z53.9 Procedure and treatment not carried out, unspecified reason; Z08 Encounter for follow-up examination after completed treatment for malignant neoplasm; Z85.51 Personal history of malignant neoplasm of bladder; R03.0 Elevated blood-pressure reading, without diagnosis of hypertension; Z95.828 Presence of other vascular implants and grafts; Z87.891 Personal history of nicotine dependence; D64.9 Anemia, unspecified; Z92.3 Personal history of irradiation; Z92.21 Personal history of antineoplastic chemotherapy
CPT/HCPCS: 36591; 77336; 77386; 80053; 85025; 96367; 96375; 96413; 99024; 99214; J0185; J1100; J1200; J1938; J2469; J3475; J3480; J3490; J7040; J7050; J9060; J9999

== ENCOUNTER 2025-04-10 13:58 | Oncology outpatient (recurring) (ONCR) | payer MEDICARE, SELFPAY | END 2025-04-23 23:59 | disposition home or self-care (01) | PROVIDERS: PCP Family Medicine; Visit Provider Internal Medicine Medical Oncology | DX: Z45.2 Encounter for adjustment and management of vascular access device (principal); Z95.828 Presence of other vascular implants and grafts | CPT/HCPCS: 96523 ==

== ENCOUNTER → 2025-04-24 16:16 | Outpatient (BNVA) | payer MEDICARE, SELFPAY | PROVIDERS: PCP Family Medicine; Visit Provider Internal Medicine Cardiovascular Disease | DX: I48.0 Paroxysmal atrial fibrillation (principal); I10 Essential (primary) hypertension; Z79.82 Long term (current) use of aspirin | CPT/HCPCS: 99214 ==

== ENCOUNTER 2025-05-08 13:30 | Oncology outpatient (recurring) (ONCR) | payer MEDICARE, SELFPAY ==
[2025-05-01] MEDS: iohexol 350 mg/mL 500 mL Btl (per mL) PO (13:27)
[2025-05-01] MEDS: iohexol 350 mg/mL 500 mL Btl (per mL) IV (13:28)
--- NOTE | 2025-05-01 13:30 | CTR_ITS ---
PROCEDURE INFORMATION: Exam: CT Chest With Contrast; Diagnostic Exam date and time: 05/01/2025 1:18 PM Age: 84 years old Clinical indication: Prior oncological treatment - not specified. Condition or disease; Other: Bladder cancer; Prior surgery; Surgery date: 6+ months; Surgery type: Hyst, port, appy; Additional info: Bladder cancer, to be completed on or around 05/01/25 TECHNIQUE: Imaging protocol: Diagnostic computed tomography of the chest with contrast. Radiation optimization: All CT scans at this facility use at least one of these dose optimization techniques: automated exposure control; mA and/or kV adjustment per patient size (includes targeted exams where dose is matched to clinical indication); or iterative reconstruction. Contrast material: OMNI 350; Contrast volume: 100 ml; Contrast route: INTRAVENOUS (IV); COMPARISON: CR XR chest 1V portable [id number] 03/10/2024 4:23 PM RADIATION DOSE METRICS: Total DLP (mGy-cm): 957.23 FINDINGS: Lungs: Tiny calcified granulomata and minimal scarring in the right mid lung. No suspicious pulmonary nodule. Mild biapical pleural and parenchymal fibrosis. Pleural spaces: Unremarkable. No pneumothorax. No pleural effusion. Heart: Unremarkable. No cardiomegaly. No pericardial effusion. Lymph nodes: Visible central lymph nodes are not pathologically enlarged. Vasculature: Unremarkable. No aortic aneurysm. Bones/joints: Unremarkable. No acute fracture. Soft tissues: Unremarkable. PROCEDURE INFORMATION: Exam: CT Abdomen And Pelvis With Contrast Exam date and time: 05/01/2025 1:18 PM Age: 84 years old Clinical indication: Prior oncological treatment - not specified. Condition or disease; Other: Bladder cancer; Prior surgery; Surgery date: 6+ months; Surgery type: Hyst, port, appy; Additional info: Bladder cancer, to be completed on or around 05/01/25 TECHNIQUE: Imaging protocol: Computed tomography of the abdomen and pelvis with contrast. Radiation optimization: All CT scans at this facility use at least one of these dose optimization techniques: automated exposure control; mA and/or kV adjustment per patient size (includes targeted exams where dose is matched to clinical indication); or iterative reconstruction. Contrast material: OMNI 350; Contrast volume: 100 ml; Contrast route: INTRAVENOUS (IV); COMPARISON: CT abdomen pelvis wo/w [id number] 10/16/2024 3:33 PM RADIATION DOSE METRICS: Total DLP (mGy-cm): 957.23 FINDINGS: Liver: Normal. No mass. Gallbladder and biliary ducts: Cholelithiasis. Pancreas: Normal. No ductal dilation. Spleen: Normal. No splenomegaly. Adrenal glands: Normal. No mass. Kidneys and ureters: Normal. No hydronephrosis. Stomach and bowel: Diverticulosis without evidence of diverticulitis. Appendix: No evidence of appendicitis. Intraperitoneal space: Unremarkable. No free air. No significant fluid collection. Vasculature: Unremarkable. No abdominal aortic aneurysm. Lymph nodes: Unremarkable. No enlarged lymph nodes. Urinary bladder: Unremarkable as visualized. Reproductive: Unremarkable as visualized. Bones/joints: Unremarkable. No acute fracture. Soft tissues: Unremarkable. CT/CT chest abdpel w/*[id number] IMPRESSION: No evidence of intrathoracic neoplastic disease. IMPRESSION: No evidence of metastatic disease.
[2025-05-08 13:39] LABS: Hematocrit 34.7 % (36-47); Hemoglobin 11.70 g/dL (11.27-16.99); Mean Corpuscular HGB Conc 33.7 g/dL (30-55); Mean Corpuscular Hemoglobin 31.2 pg (27-33); Mean Corpuscular Volume 92.5 fl (85-98); Nucleated Red Blood Cells % 0 %; Platelet Count 196 10^3/cmm (157-399); Red Blood Count 3.75 10^6/uL (3.85-5.65); White Blood Count 4.40 10^3/uL (3.29-11.43)
[2025-05-08 13:46] LABS: Glucose Urine UA Negative (Normal); Nitrate Urine Positive (Negative); Specific Gravity, Urine 1.017 (1.005-1.030)
[2025-05-08 13:50] LABS: Add Urine Microscopic? YES
[2025-05-08 13:53] LABS: Alanine Aminotransferase 12 U/L (0-33); Albumin Level 4.1 g/dL (3.5-5.2); Alkaline Phosphatase 89 U/L (35-105); Anion Gap 16.5 (5-19); Aspartate Amino Transferase 17 U/L (0-32); Blood Urea Nitrogen 21 mg/dL (8-23); Calcium 9.6 mg/dL (8.5-10.5); Carbon Dioxide 24 mmol/L (22-29); Chloride 105 mmol/L (98-107); Globulin 2.5 g/dL (1.3-4.6); Glucose 85 mg/dL (65-115); Osmolality Calculated 294 mOsm/kg (285-295); Potassium 4.5 mmol/L (3.5-5.1); Sodium 141 mmol/L (136-145); Total Protein 6.6 g/dL (6.6-8.7)
[2025-05-08 14:17] LABS: UA Slide Review UA Slide Review Perf
== END 2025-05-24 23:59 | disposition home or self-care (01) ==
PROVIDERS: PCP Family Medicine; Visit Provider Internal Medicine Medical Oncology
DX: Z53.9 Procedure and treatment not carried out, unspecified reason; Z08 Encounter for follow-up examination after completed treatment for malignant neoplasm; Z85.51 Personal history of malignant neoplasm of bladder; R03.0 Elevated blood-pressure reading, without diagnosis of hypertension; D61.818 Other pancytopenia; Z87.891 Personal history of nicotine dependence; Z95.828 Presence of other vascular implants and grafts; Z92.3 Personal history of irradiation; Z92.21 Personal history of antineoplastic chemotherapy; R52 Pain, unspecified; R35.0 Frequency of micturition
CPT/HCPCS: 36591; 71260; 74177; 80053; 81001; 85025; 87086; 99214

== ENCOUNTER 2025-06-05 12:50 | Oncology outpatient (recurring) (ONCR) | payer MEDICARE, SELFPAY ==
[2025-06-05 13:36] LABS: Hematocrit 31.4 % (36-47); Hemoglobin 10.70 g/dL (11.27-16.99); Mean Corpuscular HGB Conc 34.1 g/dL (30-55); Mean Corpuscular Hemoglobin 30.8 pg (27-33); Mean Corpuscular Volume 90.5 fl (85-98); Nucleated Red Blood Cells % 0 %; Platelet Count 181 10^3/cmm (157-399); Red Blood Count 3.47 10^6/uL (3.85-5.65); White Blood Count 3.61 10^3/uL (3.29-11.43)
[2025-06-05 13:52] LABS: Alanine Aminotransferase 12 U/L (0-33); Albumin Level 3.8 g/dL (3.5-5.2); Alkaline Phosphatase 74 U/L (35-105); Anion Gap 13.1 (5-19); Aspartate Amino Transferase 17 U/L (0-32); Blood Urea Nitrogen 17 mg/dL (8-23); Calcium 9.0 mg/dL (8.5-10.5); Carbon Dioxide 24 mmol/L (22-29); Chloride 108 mmol/L (98-107); Globulin 2.3 g/dL (1.3-4.6); Glucose 103 mg/dL (65-115); Osmolality Calculated 294 mOsm/kg (285-295); Potassium 4.1 mmol/L (3.5-5.1); Sodium 141 mmol/L (136-145); Total Protein 6.1 g/dL (6.6-8.7)
[2025-06-05 14:01] LABS: Glucose Urine UA Negative (Normal); Nitrate Urine Negative (Negative); Specific Gravity, Urine 1.012 (1.005-1.030)
[2025-06-05 14:06] LABS: Add Urine Microscopic? YES
== END 2025-06-24 23:59 | disposition home or self-care (01) ==
LOC: ONCMED 12:50
PROVIDERS: Nurse Practitioner Family; PCP Family Medicine; Visit Provider Internal Medicine Medical Oncology
DX: C67.9 Malignant neoplasm of bladder, unspecified (principal)
CPT/HCPCS: 36415; 80053; 81001; 85025

== ENCOUNTER → 2025-06-28 08:54 | Outpatient (BNVA) | payer MEDICARE, SELFPAY | PROVIDERS: PCP Family Medicine; Visit Provider Family Medicine | DX: I10 Essential (primary) hypertension (principal); I48.0 Paroxysmal atrial fibrillation; C67.9 Malignant neoplasm of bladder, unspecified; M25.50 Pain in unspecified joint | CPT/HCPCS: 80061; 83540; 84439; 84443 ==

== ENCOUNTER 2025-07-23 10:46 | Oncology outpatient (recurring) (ONCR) | payer MEDICARE, SELFPAY ==
--- NOTE | 2025-07-23 15:34 | ONCRAD EPV_ITS ---
Radiation Oncology Established Patient Visit Patient: Carol Merritt [id number] : 1940 Age: 84 Sex: Female Dictated by: Dr. Caron Lassiter Date of Service: 07/23/2025 Referring Physician(s) : Diagnosis: C67.9 - Malignant neoplasm of bladder, unspecified, Diagnosed 12/05/2024 (Active) Radiotherapy to Date: Course: bladder, Treatment Site: Bladder 2024, Ref. ID: [id number], Energy: 6X, Dose/Fx (cGy): 200, #Fx: 30 / 30, Dose Correction (cGy): 0, Total Dose Delivered (cGy): 6,000, Start Date: 01/08/2025, End Date: 03/06/2025, Elapsed Days: 57 Current History: Patient is a 84-year-old lady with a history of bladder cancer for which she underwent radiation and chemotherapy after a transurethral resection in February 2025. She had not had many issues until she had her first cystoscopy. After that she has had increasing discomfort and now describes the pain she has in her urethra is rating about a 8-9 out of 10. It is constant in nature. It also radiates to the left groin. She has had 1 scan and is scheduled for another scan on Wednesday. Defer scans did not reveal any new disease. Her most recent cystoscopy last week did not show any evidence of recurrence. They did see that her bladder looked pink. There were no ulcerations or bleeding noted. Overall she feels well other than the pain that she has through the urethra and into the groin. She was given some cream that initially felt like it helped a little. She has been using an occasional pain medicine that she had leftover. She has had her urine checked several times without signs of infection Current Medications: Allergies: No Known Allergies Current Complaints / Review of Systems: . Vital Signs: Performed on 07/23/2025 11:20 AM BMI - 29.49 kg/m2 (high), Height - 64 in, Weight - 171.8 lbs, Temperature - 97.4 f, Pulse - 82 /min, Respiration - 17 /min, O2 Sat - 93 % (low), Pain - 9, Fatigue - 0 and BP - 127/ 74 mm(hg). Physical Exam: General: Alert and oriented x 3. No acute distress. HEENT: Normocephalic, atraumatic. Extraocular Movements Intact: Pupils Equal, Round, Reactive to Light and Accommodation: Sclerae anicteric. LUNGS: Respiratory rate is regular nonlabored .HEART: Regular rate and rhythm, . ABDOMEN: Soft, nontender, nondistended EXTREMITIES: No peripheral edema is identified NEUROLOGIC: Alert and orient x 3. Gait and speech within normal limits. Performance Status: 90 Lab: None pending. Pathology: Primary, c67.9 - malignant neoplasm of bladder, unspecified, Diagnosed 12/05/2024 (active) . Imaging: See HPI Impression: I reviewed with her the sequence of events and how the pain became the level that it is after the initial scope. We talked about how scar tissue can be quite tender. I will follow her report to see how her scan is on Wednesday. I have recommended at this point that we treat it as if it is a scar tissue. She did have a large resection done followed by the postop radiation and chemotherapy. At this point I recommended to her that she try ibuprofen for several days to see what kind of effect that has. Then she can use both ibuprofen and her hydrocodone as needed. Will see her back once the results have been obtained. Would like to see her after she has been able to try the ibuprofen and the hydrocodone for a week or 2. Signed by: 07/23/2025 3:32:05 PM <<Signature on File>> Time spent with patient: 45 CPT Code: CPT Code:
== END 2025-07-24 23:59 | disposition home or self-care (01) ==
LOC: RAD 11:46 → ONCMED 07-24 11:05
PROVIDERS: PCP Family Medicine; Visit Provider Internal Medicine Medical Oncology
DX: C67.9 Malignant neoplasm of bladder, unspecified (principal)
CPT/HCPCS: 99215

== ENCOUNTER 2025-08-07 12:00 | Oncology outpatient (recurring) (ONCR) | payer MEDICARE, SELFPAY ==
[2025-07-27] MEDS: iohexol 350 mg/mL 500 mL Btl (per mL) PO (11:43)
[2025-07-27] MEDS: iohexol 350 mg/mL 500 mL Btl (per mL) IV (11:43)
--- NOTE | 2025-07-27 12:30 | CTR_ITS ---
PROCEDURE INFORMATION: Exam: CT Chest With Contrast; Diagnostic Exam date and time: 07/27/2025 12:27 PM Age: 84 years old Clinical indication: Condition or disease; Other: Bladder transitional cell carcinoma; Prior surgery; Surgery date: 6+ months; Surgery type: Hyster, appy, L breast lumpectomy, R shoulder TECHNIQUE: Imaging protocol: Diagnostic computed tomography of the chest with contrast. Radiation optimization: All CT scans at this facility use at least one of these dose optimization techniques: automated exposure control; mA and/or kV adjustment per patient size (includes targeted exams where dose is matched to clinical indication); or iterative reconstruction. Contrast material: OMNI 350; Contrast volume: 100 ml; Contrast route: INTRAVENOUS (IV); COMPARISON: CT chest abdpel w/*[id number] 05/01/2025 1:18 PM RADIATION DOSE METRICS: Total DLP (mGy-cm): 941.96 FINDINGS: Lungs: Biapical pleural and parenchymal fibrosis or scarring, as noted with prior exam. Small amount of scarring lateral mid to upper right lung, as noted with prior exam. A few tiny calcified granulomata, particularly on the right, indicating mild benign healed granulomatous disease, unchanged with prior exam. No infiltrate or consolidation otherwise. No pulmonary parenchymal suspicious nodule/mass. Pleural spaces: No pleural effusion or pneumothorax. Heart: No cardiomegaly or pericardial effusion. Lymph nodes: Multiple small predominant subcentimeter lymph nodes within the mediastinum. Posterior subcarinal right mediastinum demonstrates soft tissue density mass with partial calcification measuring approximately 3.5-4 x 2 x 1.5 cm when correlating all imaging sequences. This appears mildly increased in size from prior exam 05/01/2025 and likely represents lymphadenopathy or lymph node mass. Vasculature: Mild arteriosclerosis of the thoracic aorta. No aneurysm/dissection. Pulmonary arteries appear unremarkable. Bones/joints: Spondylotic change thoracic spine. No acute osseous abnormality. Soft tissues: Unremarkable. PROCEDURE INFORMATION: Exam: CT Abdomen And Pelvis With Contrast Exam date and time: 07/27/2025 12:27 PM Age: 84 years old Clinical indication: Condition or disease; Other: Bladder transitional cell carcinoma; Prior surgery; Surgery date: 6+ months; Surgery type: Hyster, appy, L breast lumpectomy, R shoulder TECHNIQUE: Imaging protocol: Computed tomography of the abdomen and pelvis with contrast. Radiation optimization: All CT scans at this facility use at least one of these dose optimization techniques: automated exposure control; mA and/or kV adjustment per patient size (includes targeted exams where dose is matched to clinical indication); or iterative reconstruction. Contrast material: OMNI 350; Contrast volume: 100 ml; Contrast route: INTRAVENOUS (IV); COMPARISON: CT chest abdpel w/*[id number] 05/01/2025 1:18 PM RADIATION DOSE METRICS: Total DLP (mGy-cm): 941.96 FINDINGS: Liver: Liver appears unremarkable and without mass or significant change with prior exam. Gallbladder and biliary ducts: Cholelithiasis, as noted with prior exam. No biliary ductal dilatation. Pancreas: Normal. No ductal dilation. Spleen: A few small benign calcified granulomas within the spleen. No significant change with prior exam. Adrenal glands: Normal. No mass. Kidneys and ureters: Small hypodense focus from the lower pole cortex of the left kidney suggestive of small left renal cyst and unchanged with prior exam. No hydronephrosis. Stomach and bowel: No bowel obstruction. Small rounded hypodense focus of fat density within the 3rd portion of the duodenum suggesting small intraduodenal lipoma. This is unchanged from prior exam. Colonic diverticulosis without findings of diverticulitis. Poorly distended or collapsed appearance of a portion of the splenic flexure as well as left colon. This could represent spasm or incomplete distension or stricture. Appendix: Appendix is not seen with history of previous appendectomy. Intraperitoneal space: No free fluid or ascites or fluid collection. No free air. Vasculature: Unremarkable. No abdominal aortic aneurysm. Lymph nodes: No significant lymph node enlargement or lymphadenopathy. Urinary bladder: Mild urinary bladder wall thickening mid to superior aspect and urinary bladder is otherwise unremarkable as visualized. This is unchanged with previous exam. Reproductive: Previous hysterectomy. Bones/joints: Degenerative change lumbar spine with degenerative disc disease. Soft tissues: Unremarkable. CT/CT chest abdpel w/*[id number] IMPRESSION: 1. Chronic biapical pleural and parenchymal fibrosis or scarring, as well as small amount of scarring lateral mid to upper right lung with prior exam. Evidence for mild benign healed granulomatous disease as well. 2. Multiple predominant small subcentimeter lymph nodes within the mediastinum, though with soft tissue density mass or enlarged lymph node within the posterior subcarinal right mediastinum with partial calcification, measuring 3.5-4 by 2 x 1.5 cm when correlating all imaging sequences. This appears mildly increased in size from prior exam 05/01/2025 and likely represents lymph node mass or lymphadenopathy. Consider further evaluation with PET-CT with the clinical history. 3. No acute findings otherwise. IMPRESSION: 1. Cholelithiasis, chronic with prior exam. 2. Colonic diverticulosis without diverticulitis, chronic with prior exam. Poorly distended or collapsed segment of a portion of the splenic flexure and left colon could represent spasm or incomplete distension or stricture. 3. Previous appendectomy and hysterectomy. 4. Mild nonspecific urinary bladder wall thickening mid to superior aspect of the urinary bladder, and otherwise unremarkable. This is unchanged from previous exam. 5. Small left renal cortical cyst lower pole is unchanged with prior exam. 6. No acute findings otherwise.
[2025-08-07 12:13] LABS: Hematocrit 35.6 % (36-47); Hemoglobin 12.00 g/dL (11.27-16.99); Mean Corpuscular HGB Conc 33.7 g/dL (30-55); Mean Corpuscular Hemoglobin 29.9 pg (27-33); Mean Corpuscular Volume 88.6 fl (85-98); Nucleated Red Blood Cells % 0 %; Platelet Count 190 10^3/cmm (157-399); Red Blood Count 4.02 10^6/uL (3.85-5.65); White Blood Count 4.44 10^3/uL (3.29-11.43)
[2025-08-07 12:36] LABS: Alanine Aminotransferase 12 U/L (0-33); Albumin Level 4.1 g/dL (3.5-5.2); Alkaline Phosphatase 68 U/L (35-105); Anion Gap 15.3 (5-19); Aspartate Amino Transferase 16 U/L (0-32); Blood Urea Nitrogen 21 mg/dL (8-23); Calcium 9.2 mg/dL (8.5-10.5); Carbon Dioxide 24 mmol/L (22-29); Chloride 108 mmol/L (98-107); Creatinine Clr Calc Pharmacy 1.4055; Globulin 2.5 g/dL (1.3-4.6); Glucose 131 mg/dL (65-115); Osmolality Calculated 301 mOsm/kg (285-295); Potassium 4.3 mmol/L (3.5-5.1); Sodium 143 mmol/L (136-145); Total Protein 6.6 g/dL (6.6-8.7)
== END 2025-08-24 23:59 | disposition home or self-care (01) ==
PROVIDERS: PCP Family Medicine; Visit Provider Internal Medicine Medical Oncology
DX: C67.9 Malignant neoplasm of bladder, unspecified; R03.0 Elevated blood-pressure reading, without diagnosis of hypertension; R59.0 Localized enlarged lymph nodes; G89.29 Other chronic pain; Z92.3 Personal history of irradiation; Z92.21 Personal history of antineoplastic chemotherapy; Z87.891 Personal history of nicotine dependence; Z95.828 Presence of other vascular implants and grafts; Z53.9 Procedure and treatment not carried out, unspecified reason
CPT/HCPCS: 36591; 71260; 74177; 80053; 85025; 99214

== ENCOUNTER 2025-09-04 12:35 | Oncology outpatient (recurring) (ONCR) | payer MEDICARE, SELFPAY | END 2025-09-23 23:59 | disposition home or self-care (01) | PROVIDERS: PCP Family Medicine; Visit Provider Internal Medicine Medical Oncology | DX: Z45.2 Encounter for adjustment and management of vascular access device (principal); Z95.828 Presence of other vascular implants and grafts | CPT/HCPCS: 96523 ==

== ENCOUNTER 2025-10-02 12:47 | Oncology outpatient (recurring) (ONCR) | payer MEDICARE, SELFPAY | END 2025-10-24 23:59 | disposition home or self-care (01) | LOC: ONCMED 12:48 | PROVIDERS: PCP Family Medicine; Visit Provider Internal Medicine Medical Oncology | DX: Z45.2 Encounter for adjustment and management of vascular access device (principal); Z95.828 Presence of other vascular implants and grafts | CPT/HCPCS: 96523 ==